=== PATIENT | male | born 1965 | race Caucasian/White ===

== ENCOUNTER 2020-09-30 15:52 | Observation (INO) | payer SELFPAY ==
[2020-09-30] VITALS (8 sets, daily range): BP systolic 143–177; BP diastolic 77–113; PULSE 93–122; RESP 15–20; TEMP 36.8; O2SAT 97–100; BMI 21.4
--- NOTE | 2020-09-30 16:48 | XRR_ITS ---
PROCEDURE INFORMATION: Exam: XR Complete Acute Abdomen Series Exam date and time: 09/30/2020 4:59 PM Age: 55 years old Clinical indication: Abdominal tenderness; Patient HX: PT confused, abd tender, GROVE; Additional info: Abd pain TECHNIQUE: Imaging protocol: XR complete acute abdomen series, including 2 or more views of the abdomen and a single view chest. COMPARISON: No relevant prior studies available. FINDINGS: Lungs: Right basilar atelectasis versus mild scarring is noted. The lungs are otherwise clear. Pleural spaces: A small right pleural effusion is present. No pneumothorax. Heart/Mediastinum: Normal. No cardiomegaly. Gastrointestinal tract: No intestinal obstruction. Intraperitoneal space: Normal. No free air. Bones/joints: Normal. No acute fracture. Soft tissues: Normal. XR/XR acute abdomen series [id number] IMPRESSION: 1. Right basilar atelectasis versus mild scarring and small right pleural effusion. 2. No intestinal obstruction.
--- NOTE | 2020-09-30 16:48 | ECG_ITS ---
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 Measurements Intervals [place] Rate: 107 P: 37 RI: 147 QRS: 26 QRSD: 88 T: 33 QT: 349 QTc: 467 Interpretive Statements SINUS TACHYCARDIA POSSIBLE LEFT ATRIAL ENLARGEMENT [-0.1mV P WAVE IN V1/V2] ST DEVIATION AND MODERATE T-WAVE ABNORMALITY, CONSIDER ANTERIOR ISCHEMIA [-0.1+ mV T WAVE IN V3/V4] No previous ECG available for comparison Electronically Signed On 09-30-2020 18:35:49 CDT by Lety Gimenez M.D. [id number]
--- NOTE | 2020-09-30 16:51 | ED_ITS ---
Documented by User: Evan Jason MD 09/30/20 17:46 HPI - Altered Mental Status General: Chief Complaint: Altered Mental Status Stated Complaint: confusion Time Seen by Provider: 09/30/20 16:39 Source: patient, family, RN notes reviewed and old records reviewed Limitations: no limitations History of Present Illness: HPI narrative: This patient is a 55-year-old male who presents to the emergency department concerns for acute alcoholism and depression and self-medicating with alcohol. Patient states he drinks probably less than a fourth of Captjustin Ibarra's daily and has for many years. Patient is drinking is increased since 6 months ago when his mother the patient is left to care for an elderly cousin who has mental retardation. Patient is currently trying to care and get him become the power of collections attorney of the cousin but it stuck in court. Patient is not eating much and drinking constantly to help medicate for depression. Patient does not appear to be tremulous does not appear to be having acute DTs he has reported that he has had issues with some nausea and vomiting. Although he has not vomited in the emergency department. Patient's vital signs blood pressure 155/87 slightly tachycardic at 122 respirations 18 temperature 98.3 O2 sat 99 on room air. Patient 30 days ago was in [place] at [facility] and started having some chest pain and felt lightheaded and was admitted to [facility] at that time for concerns of electrolyte abnormalities and concerning medical heart condition. Will do medical evaluation treat as needed Onset (ago): year(s) Severity: similar to previous episodes Associated symptoms: Reports depression Review of Systems General: Reports: 10 or more systems reviewed and unremarkable except in HPI and below Const: Denies: fever(s), chills, body aches or fatigue Eyes: Denies: change in vision or blurry vision ENMT: Denies: throat pain, hoarseness or mouth pain Card: Denies: chest pain, palpitations, irregular heart rhythm, edema, swelling of feet/ankles or lightheadedness Resp: Denies: dyspnea, productive cough, non-productive cough, wheezing or pain on inspiration GI: Reports: nausea and vomiting; Denies: abdominal pain : Denies: flank pain, dysuria, urinary frequency, urinary urgency or urinary hesitancy Musc: Denies: neck pain, back pain, extremity pain, extremity swelling, joint pain, joint swelling, joint redness, joint warmth or limited range of motion Skin/Breast: Denies: rash, pruritus, erythema or skin tenderness Neuro: Denies: headache(s), numbness in extremities or weakness in extremities Psych: Reports: depression and change in appetite; Denies: anxiety PFSH ED PFSH: Medical History No pertinent past medical history Surgical History No pertinent past surgical history Family History Other CAD (coronary artery disease) Social History Smoking and tobacco status: current every day smoker cigarettes [ Other cigarette details: 1 pack/day for 30 years ] Alcohol intake: current Alcohol use comment: Drinks spiced rum 1.5 pint every night Substance/Drug Use: never Household members: family Housing: House Physical Exam Const: COMMON NORMALS: no acute distress, average body habitus, patient oriented x3, no limitations, healthy appearing, alert and well nourished HENMT: COMMON NORMALS: normocephalic, atraumatic, hearing grossly normal bilaterally, external ears normal, EAC's normal, TM's normal bilaterally, Normal external nose present, Normal nasal mucous membranes and turbinates present, moist oral mucous membranes, oropharynx normal, dentition normal and gingiva normal HEAD & SCALP: normocephalic and atraumatic NOSE: Normal external nose present and Normal nasal mucous membranes and turbinates present EXTERNAL EAR: Yes external ears normal EXTERNAL AUDITORY CANAL: EAC's normal TYMPANIC MEMBRANE: TM's normal bilaterally Neck/C-Spine: COMMON NORMALS: full ROM, no lymphadenopathy, supple, no meningeal signs, no JVD, Thyroid normal and No carotid bruits THYROID: T hyroid normal Chest: COMMONS NORMALS: normal inspection of the chest, normal palpation of entire chest wall, normal inspection of the breasts and normal palpation of the breasts Resp: COMMON NORMALS: normal respiratory effort, No retractions, No use of accessory muscles, clear to auscultation bilaterally and percussion normal AUSCULTATION: clear to auscultation bilaterally PERCUSSION: percussion normal Cardio: COMMON NORMALS: no JVD, regular rate, regular rhythm, S1 normal heart sound present, S2 normal heart sound present, No gallops present (Cardio), No clicks present (Cardio), No murmurs present (Cardio), No rub (Cardio) and Peripheral pulses 2+ throughout RATE: regular rate RHYTHM: regular rhythm HEART SOUNDS: S1 normal heart sound present and S2 normal heart sound present PERIPHERAL PULSES: Peripheral pulses 2+ throughout GI: COMMON NORMALS: Normal to inspection, nondistended, normoactive bowel sounds present, Soft to palpation, non-tender, No hepatosplenomegaly present, no masses and no bruits PALPATION: Yes Soft to palpation and Yes No hepatosplenomegaly present : COMMON NORMALS: Yes no CVA tenderness BLADDER/KIDNEY EXAM: Yes no CVA tenderness Back/Pelvis: COMMON NORMALS: no CVA tenderness, thoracic and lumbar spine normal to inspection, no thoracic nor lumbar tenderness, thoraco-lumbar ROM normal and straight leg raise negative bilaterally Extremity: COMMON NORMALS: normal to inspection, full ROM, capillary refill normal, no joint enlargement, no clubbing, cyanosis or edema, no calf tenderness and no pedal edema Neuro: COMMON NORMALS: patient oriented x3 SENSORIUM/ORIENTATION: Yes alert MENINGEAL SIGNS: Yes no meningeal signs Course Consultations: Consultation #1: Care transferred to Dr. Thorpe for shift change Time: 17:45 Vital Signs: Vital signs: Vital Signs Temperature 98.3 F 09/30/20 15:54 Pulse Rate 121 H 09/30/20 20:27 Respiratory Rate 20 H 09/30/20 20:27 Blood Pressure 165/113 09/30/20 20:27 Pulse Oximetry 99 09/30/20 20:27 MDM - Altered Mental Status MDM Narrative: Medical decision making narrative: This patient is a 55-year-old male who presents to the emergency department concerns for acute alcoholism and depression and self-medicating with alcohol. Patient states he drinks probably less than a fourth of [employer] I[employer]ra's daily and has for many years. Patient is drinking is increased since 6 months ago when his mother the patient is left to care for an elderly cousin who has mental retardation. Patient is currently trying to care and get him become the power of collections attorney of the cousin but it stuck in court. Patient is not eating much and drinking constantly to help medicate for depression. Patient does not appear to be tremulous does not appear to be having acute DTs he has reported that he has had issues with some nausea and vomiting. Although he has not vomited in the emergency department. Patient's vital signs blood pressure 155/87 slightly tachycardic at 122 respirations 18 temperature 98.3 O2 sat 99 on room air. Patient 30 days ago was in [place] at [facility] and started having some chest pain and felt lightheaded and was admitted to [facility] at that time for concerns of electrolyte abnormalities and concerning medical heart condition. Differential Diagnosis: Differential diagnosis altered mental status: Likely alcoholic intoxication, altered mental status, delirium, dementia, hypoglycemia, hyponatremia, subarachnoid hemorrhage and sepsis Medical Records: Attestation: I reviewed the patient's medical records. Lab Data: Attestation: I reviewed the patient's lab results. Labs: Lab Results 09/30/20 09/30/20 09/30/20 Range/Units 17:20 17:20 17:20 WBC 10.1 H (4.0-10.0) 10^3/ uL RBC 3.19 L (4.1-5.3) 10^6/u L Hgb 11.3 L (11.7-16.6) g/dL Hct 33.4 L (42.0-52.0) % MCV 104.7 H (80-94) fL MCH 35.4 H (28.0-34.0) pg MCHC 33.8 (30.0-36.0) g/dL RDW 13.1 (12.1-15.1) % Plt Count 108 L (130-400) 10^3/c mm MPV 11.4 H (7.4-10.4) fL Neut % (Auto) 75.8 % Lymph % (Auto) 12.5 % [place] % (Auto) 9.6 % Eos % (Auto) 1.1 % Baso % (Auto) 0.4 % Neut # (Auto) 7.67 (1.8-7.7) 10^3/u L Lymph # (Auto) 1.3 (0.8-4.8) 10^3/u L [place] # (Auto) 1.0 H (0.2-0.9) 10^3/u L Eos # (Auto) 0.1 (0.0-0.8) 10^3/u L Baso # (Auto) 0.0 (0.0-0.1) 10^3/u L Nucleated RBC % (a uto) 0 % Nucleated RBCs # 0.0 /100WBC PT 12.60 (12.1-14.9) SECO NDS INR 0.92 (0.8-1.2) APTT 29.0 (23.9-36.7) SECO NDS Sodium 135 L (136-145) mmol/L Potassium 2.9 L (3.5-5.1) mmol/L Chloride 87 L (98-107) mmol/L Carbon Dioxide 18 L (22-29) mmol/L Anion Gap 32.9 H (5-19) BUN 24 H (6-20) mg/dL Creatinine 1.3 H (0.7-1.2) mg/dL GFR Calculation 57.7 L (90-130) mL/min Glucose 114 (65-115) mg/dL Calculated Osmolal ity 285 (285-295) mOsm/k g Calcium 9.3 (8.5-10.5) mg/dL Magnesium (1.7-2.3) mg/dL Total Bilirubin 1.2 (0.15-1.2) mg/dL AST 89 H (0-40) U/L ALT 42 H (0-41) U/L Alkaline Phosphata se 109 (40-130) IU/L Troponin T Baselin e (0-15) ng/L Total Protein 8.3 (6.6-8.7) g/dL Albumin 4.7 (3.5-5.2) g/dL Globulin 3.6 (1.3-4.6) g/dL Lipase 275 H (13-60) U/L Vitamin B12 420 (232-1245) pg/mL Folate (4.5-32.2) ng/mL Urine Color (Yellow) Urine Appearance (CLEAR) Urine pH (5-7) Ur Specific Gravit y (1.005-1.030) Urine Protein (Negative) Urine Glucose (UA) (Normal) Urine Ketones (Negative) Urine Blood (Negative) Urine Nitrate (Negative) Urine Bilirubin (Negative) Urine Urobilinogen (Negative) mg/dL Ur Leukocyte Kalyani ase (Negative) Urine RBC (0-2) /hpf Urine WBC (0-5) /hpf Ur Squamous Epith Cells (0-5) /hpf Amorphous Sediment Urine Bacteria (NONE) /hpf Fine Granular Cast s /lpf Salicylates < 0.3 L (3-10) mg/dL Urine Opiates Scre en (Negative) ng/mL Ur Barbiturates Sc reen (Negative) ng/mL Ur Phencyclidine S crn (Negative) ng/mL Ur Amphetamines Sc reen (Negative) ng/mL U Benzodiazepines Scrn (Negative) ng/mL Urine Cocaine Scre en (Negative) ng/mL U Marijuana (THC) Screen (Negative) ng/mL Ethyl Alcohol < 10 (0-10) mg/dL Serum Ketones (Negative) 09/30/20 09/30/20 09/30/20 Range/Units 17:20 17:20 17:20 WBC (4.0-10.0) 10^3/ uL RBC (4.1-5.3) 10^6/u L Hgb (11.7-16.6) g/dL Hct (42.0-52.0) % MCV (80-94) fL MCH (28.0-34.0) pg MCHC (30.0-36.0) g/dL RDW (12.1-15.1) % Plt Count (130-400) 10^3/c mm MPV (7.4-10.4) fL Neut % (Auto) % Lymph % (Auto) % [place] % (Auto) % Eos % (Auto) % Baso % (Auto) % Neut # (Auto) (1.8-7.7) 10^3/u L Lymph # (Auto) (0.8-4.8) 10^3/u L [place] # (Auto) (0.2-0.9) 10^3/u L Eos # (Auto) (0.0-0.8) 10^3/u L Baso # (Auto) (0.0-0.1) 10^3/u L Nucleated RBC % (a uto) % Nucleated RBCs # /100WBC PT (12.1-14.9) SECO NDS INR (0.8-1.2) APTT (23.9-36.7) SECO NDS Sodium (136-145) mmol/L Potassium (3.5-5.1) mmol/L Chloride (98-107) mmol/L Carbon Dioxide (22-29) mmol/L Anion Gap (5-19) BUN (6-20) mg/dL Creatinine (0.7-1.2) mg/dL GFR Calculation (90-130) mL/min Glucose (65-115) mg/dL Calculated Osmolal ity (285-295) mOsm/k g Calcium (8.5-10.5) mg/dL Magnesium (1.7-2.3) mg/dL Total Bilirubin (0.15-1.2) mg/dL AST (0-40) U/L ALT (0-41) U/L Alkaline Phosphata se (40-130) IU/L Troponin T Baselin e 29 H (0-15) ng/L Total Protein (6.6-8.7) g/dL Albumin (3.5-5.2) g/dL Globulin (1.3-4.6) g/dL Lipase (13-60) U/L Vitamin B12 (232-1245) pg/mL Folate 4.4 L (4.5-32.2) ng/mL Urine Color (Yellow) Urine Appearance (CLEAR) Urine pH (5-7) Ur Specific Gravit y (1.005-1.030) Urine Protein (Negative) Urine Glucose (UA) (Normal) Urine Ketones (Negative) Urine Blood (Negative) Urine Nitrate (Negative) Urine Bilirubin (Negative) Urine Urobilinogen (Negative) mg/dL Ur Leukocyte Kalyani ase (Negative) Urine RBC (0-2) /hpf Urine WBC (0-5) /hpf Ur Squamous Epith Cells (0-5) /hpf Amorphous Sediment Urine Bacteria (NONE) /hpf Fine Granular Cast s /lpf Salicylates (3-10) mg/dL Urine Opiates Scre en (Negative) ng/mL Ur Barbiturates Sc reen (Negative) ng/mL Ur Phencyclidine S crn (Negative) ng/mL Ur Amphetamines Sc reen (Negative) ng/mL U Benzodiazepines Scrn (Negative) ng/mL Urine Cocaine Scre en (Negative) ng/mL U Marijuana (THC) Screen (Negative) ng/mL Ethyl Alcohol (0-10) mg/dL Serum Ketones Positive H (Negative) 09/30/20 09/30/20 09/30/20 Range/Units 17:20 18:43 18:43 WBC (4.0-10.0) 10^3/ uL RBC (4.1-5.3) 10^6/u L Hgb (11.7-16.6) g/dL Hct (42.0-52.0) % MCV (80-94) fL MCH (28.0-34.0) pg MCHC (30.0-36.0) g/dL RDW (12.1-15.1) % Plt Count (130-400) 10^3/c mm MPV (7.4-10.4) fL Neut % (Auto) % Lymph % (Auto) % [place] % (Auto) % Eos % (Auto) % Baso % (Auto) % Neut # (Auto) (1.8-7.7) 10^3/u L Lymph # (Auto) (0.8-4.8) 10^3/u L [place] # (Auto) (0.2-0.9) 10^3/u L Eos # (Auto) (0.0-0.8) 10^3/u L Baso # (Auto) (0.0-0.1) 10^3/u L Nucleated RBC % (a uto) % Nucleated RBCs # /100WBC PT (12.1-14.9) SECO NDS INR (0.8-1.2) APTT (23.9-36.7) SECO NDS Sodium (136-145) mmol/L Potassium (3.5-5.1) mmol/L Chloride (98-107) mmol/L Carbon Dioxide (22-29) mmol/L Anion Gap (5-19) BUN (6-20) mg/dL Creatinine (0.7-1.2) mg/dL GFR Calculation (90-130) mL/min Glucose (65-115) mg/dL Calculated Osmolal ity (285-295) mOsm/k g Calcium (8.5-10.5) mg/dL Magnesium 1.9 (1.7-2.3) mg/dL Total Bilirubin (0.15-1.2) mg/dL AST (0-40) U/L ALT (0-41) U/L Alkaline Phosphata se (40-130) IU/L Troponin T Baselin e (0-15) ng/L Total Protein (6.6-8.7) g/dL Albumin (3.5-5.2) g/dL Globulin (1.3-4.6) g/dL Lipase (13-60) U/L Vitamin B12 (232-1245) pg/mL Folate (4.5-32.2) ng/mL Urine Color Yellow (Yellow) Urine Appearance Clear (CLEAR) Urine pH 6.5 (5-7) Ur Specific Gravit y 1.010 (1.005-1.030) Urine Protein 1+ H (Negative) Urine Glucose (UA) Norm (Normal) Urine Ketones 2+ H (Negative) Urine Blood 2+ H (Negative) Urine Nitrate Negative (Negative) Urine Bilirubin 1+ H (Negative) Urine Urobilinogen 1 H (Negative) mg/dL Ur Leukocyte Kalyani ase Negative (Negative) Urine RBC 0-4 H (0-2) /hpf Urine WBC None (0-5) /hpf Ur Squamous Epith Cells 0-4 H (0-5) /hpf Amorphous Sediment Not Reportable Urine Bacteria Trace (NONE) /hpf Fine Granular Cast s 0-4 H /lpf Salicylates (3-10) mg/dL Urine Opiates Scre en Negative (Negative) ng/mL Ur Barbiturates Sc reen Negative (Negative) ng/mL Ur Phencyclidine S crn Negative (Negative) ng/mL Ur Amphetamines Sc reen Negative (Negative) ng/mL U Benzodiazepines Scrn Negative (Negative) ng/mL Urine Cocaine Scre en Negative (Negative) ng/mL U Marijuana (THC) Screen Negative (Negative) ng/mL Ethyl Alcohol (0-10) mg/dL Serum Ketones (Negative) EKG Data^: EKG 1: Attestation: I personally reviewed and interpreted this EKG as follows: EKG interpretation date: 09/30/20 EKG interpretation time: 01:07 Prior EKG tracings: not available for review Interpretation: This patient is a sinus tachycardic patient heart rate 107 possible left atrial enlargement nonspecific ST changes. Stated that he was admitted to the hospital 1 month ago for similar EKG at [facility] and spent 3 days. Appear to be more of an electrolyte imbalance versus intact cardiac issue . Will do medical evaluation treat as needed Discharge Plan Discharge Admit Provider: Gissel Prasad Clinical Impression: Alcoholism, chronic, Depression Condition: Stable Coding Level of Care Code ED Longitudinal Float Operator for Chg Fwd Exam Comprehensive Documented by User: Aidan Thorpe MD 09/30/20 22:56 HPI - Altered Mental Status General: Chief Complaint: Altered Mental Status Stated Complaint: confusion Time Seen by Provider: 09/30/20 16:39 [facility] ED PFSH: Medical History No pertinent past medical history Surgical History No pertinent past surgical history Family History Other CAD (coronary artery disease) Social History Smoking and tobacco status: current every day smoker cigarettes [ Other cigarette details: 1 pack/day for 30 years ] Alcohol intake: current Alcohol use comment: Drinks spiced rum 1.5 pint every night Substance/Drug Use: never Household members: family Housing: House Course ED course: Upon reexamination, patient appears to be tachycardic, altered, with headache. He is hypokalemic receiving repletion. He is ketotic and cachectic and would benefit from fluid resuscitation. He was started on D5 half normal saline and given IV potassium and will be admitted to the hospitalist service until such time that he is able to meet his metabolic needs by mouth. Patient agrees to the plan. Vital Signs: Vital signs: Vital Signs Temperature 98.3 F 09/30/20 15:54 Pulse Rate 121 H 09/30/20 20:27 Respiratory Rate 20 H 09/30/20 20:27 Blood Pressure 165/113 09/30/20 20:27 Pulse Oximetry 99 09/30/20 20:27 MDM - Altered Mental Status Lab Data: Labs: Lab Results 09/30/20 09/30/20 09/30/20 Range/Units 17:20 17:20 17:20 WBC 10.1 H (4.0-10.0) 10^3/ uL RBC 3.19 L (4.1-5.3) 10^6/u L Hgb 11.3 L (11.7-16.6) g/dL Hct 33.4 L (42.0-52.0) % MCV 104.7 H (80-94) fL MCH 35.4 H (28.0-34.0) pg MCHC 33.8 (30.0-36.0) g/dL RDW 13.1 (12.1-15.1) % Plt Count 108 L (130-400) 10^3/c mm MPV 11.4 H (7.4-10.4) fL Neut % (Auto) 75.8 % Lymph % (Auto) 12.5 % [place] % (Auto) 9.6 % Eos % (Auto) 1.1 % Baso % (Auto) 0.4 % Neut # (Auto) 7.67 (1.8-7.7) 10^3/u L Lymph # (Auto) 1.3 (0.8-4.8) 10^3/u L [place] # (Auto) 1.0 H (0.2-0.9) 10^3/u L Eos # (Auto) 0.1 (0.0-0.8) 10^3/u L Baso # (Auto) 0.0 (0.0-0.1) 10^3/u L Nucleated RBC % (a uto) 0 % Nucleated RBCs # 0.0 /100WBC PT 12.60 (12.1-14.9) SECO NDS INR 0.92 (0.8-1.2) APTT 29.0 (23.9-36.7) SECO NDS Sodium 135 L (136-145) mmol/L Potassium 2.9 L (3.5-5.1) mmol/L Chloride 87 L (98-107) mmol/L Carbon Dioxide 18 L (22-29) mmol/L Anion Gap 32.9 H (5-19) BUN 24 H (6-20) mg/dL Creatinine 1.3 H (0.7-1.2) mg/dL GFR Calculation 57.7 L (90-130) mL/min Glucose 114 (65-115) mg/dL Calculated Osmolal ity 285 (285-295) mOsm/k g Calcium 9.3 (8.5-10.5) mg/dL Magnesium (1.7-2.3) mg/dL Total Bilirubin 1.2 (0.15-1.2) mg/dL AST 89 H (0-40) U/L ALT 42 H (0-41) U/L Alkaline Phosphata se 109 (40-130) IU/L Troponin T Baselin e (0-15) ng/L Total Protein 8.3 (6.6-8.7) g/dL Albumin 4.7 (3.5-5.2) g/dL Globulin 3.6 (1.3-4.6) g/dL Lipase 275 H (13-60) U/L Vitamin B12 420 (232-1245) pg/mL Folate (4.5-32.2) ng/mL Urine Color (Yellow) Urine Appearance (CLEAR) Urine pH (5-7) Ur Specific Gravit y (1.005-1.030) Urine Protein (Negative) Urine Glucose (UA) (Normal) Urine Ketones (Negative) Urine Blood (Negative) Urine Nitrate (Negative) Urine Bilirubin (Negative) Urine Urobilinogen (Negative) mg/dL Ur Leukocyte Kalyani ase (Negative) Urine RBC (0-2) /hpf Urine WBC (0-5) /hpf Ur Squamous Epith Cells (0-5) /hpf Amorphous Sediment Urine Bacteria (NONE) /hpf Fine Granular Cast s /lpf Salicylates < 0.3 L (3-10) mg/dL Urine Opiates Scre en (Negative) ng/mL Ur Barbiturates Sc reen (Negative) ng/mL Ur Phencyclidine S crn (Negative) ng/mL Ur Amphetamines Sc reen (Negative) ng/mL U Benzodiazepines Scrn (Negative) ng/mL Urine Cocaine Scre en (Negative) ng/mL U Marijuana (THC) Screen (Negative) ng/mL Ethyl Alcohol < 10 (0-10) mg/dL Serum Ketones (Negative) 09/30/20 09/30/20 09/30/20 Range/Units 17:20 17:20 17:20 WBC (4.0-10.0) 10^3/ uL RBC (4.1-5.3) 10^6/u L Hgb (11.7-16.6) g/dL Hct (42.0-52.0) % MCV (80-94) fL MCH (28.0-34.0) pg MCHC (30.0-36.0) g/dL RDW (12.1-15.1) % Plt Count (130-400) 10^3/c mm MPV (7.4-10.4) fL Neut % (Auto) % Lymph % (Auto) % [place] % (Auto) % Eos % (Auto) % Baso % (Auto) % Neut # (Auto) (1.8-7.7) 10^3/u L Lymph # (Auto) (0.8-4.8) 10^3/u L [place] # (Auto) (0.2-0.9) 10^3/u L Eos # (Auto) (0.0-0.8) 10^3/u L Baso # (Auto) (0.0-0.1) 10^3/u L Nucleated RBC % (a uto) % Nucleated RBCs # /100WBC PT (12.1-14.9) SECO NDS INR (0.8-1.2) APTT (23.9-36.7) SECO NDS Sodium (136-145) mmol/L Potassium (3.5-5.1) mmol/L Chloride (98-107) mmol/L Carbon Dioxide (22-29) mmol/L Anion Gap (5-19) BUN (6-20) mg/dL Creatinine (0.7-1.2) mg/dL GFR Calculation (90-130) mL/min Glucose (65-115) mg/dL Calculated Osmolal ity (285-295) mOsm/k g Calcium (8.5-10.5) mg/dL Magnesium (1.7-2.3) mg/dL Total Bilirubin (0.15-1.2) mg/dL AST (0-40) U/L ALT (0-41) U/L Alkaline Phosphata se (40-130) IU/L Troponin T Baselin e 29 H (0-15) ng/L Total Protein (6.6-8.7) g/dL Albumin (3.5-5.2) g/dL Globulin (1.3-4.6) g/dL Lipase (13-60) U/L Vitamin B12 (232-1245) pg/mL Folate 4.4 L (4.5-32.2) ng/mL Urine Color (Yellow) Urine Appearance (CLEAR) Urine pH (5-7) Ur Specific Gravit y (1.005-1.030) Urine Protein (Negative) Urine Glucose (UA) (Normal) Urine Ketones (Negative) Urine Blood (Negative) Urine Nitrate (Negative) Urine Bilirubin (Negative) Urine Urobilinogen (Negative) mg/dL Ur Leukocyte Kalyani ase (Negative) Urine RBC (0-2) /hpf Urine WBC (0-5) /hpf Ur Squamous Epith Cells (0-5) /hpf Amorphous Sediment Urine Bacteria (NONE) /hpf Fine Granular Cast s /lpf Salicylates (3-10) mg/dL Urine Opiates Scre en (Negative) ng/mL Ur Barbiturates Sc reen (Negative) ng/mL Ur Phencyclidine S crn (Negative) ng/mL Ur Amphetamines Sc reen (Negative) ng/mL U Benzodiazepines Scrn (Negative) ng/mL Urine Cocaine Scre en (Negative) ng/mL U Marijuana (THC) Screen (Negative) ng/mL Ethyl Alcohol (0-10) mg/dL Serum Ketones Positive H (Negative) 09/30/20 09/30/20 09/30/20 Range/Units 17:20 18:43 18:43 WBC (4.0-10.0) 10^3/ uL RBC (4.1-5.3) 10^6/u L Hgb (11.7-16.6) g/dL Hct (42.0-52.0) % MCV (80-94) fL MCH (28.0-34.0) pg MCHC (30.0-36.0) g/dL RDW (12.1-15.1) % Plt Count (130-400) 10^3/c mm MPV (7.4-10.4) fL Neut % (Auto) % Lymph % (Auto) % [place] % (Auto) % Eos % (Auto) % Baso % (Auto) % Neut # (Auto) (1.8-7.7) 10^3/u L Lymph # (Auto) (0.8-4.8) 10^3/u L [place] # (Auto) (0.2-0.9) 10^3/u L Eos # (Auto) (0.0-0.8) 10^3/u L Baso # (Auto) (0.0-0.1) 10^3/u L Nucleated RBC % (a uto) % Nucleated RBCs # /100WBC PT (12.1-14.9) SECO NDS INR (0.8-1.2) APTT (23.9-36.7) SECO NDS Sodium (136-145) mmol/L Potassium (3.5-5.1) mmol/L Chloride (98-107) mmol/L Carbon Dioxide (22-29) mmol/L Anion Gap (5-19) BUN (6-20) mg/dL Creatinine (0.7-1.2) mg/dL GFR Calculation (90-130) mL/min Glucose (65-115) mg/dL Calculated Osmolal ity (285-295) mOsm/k g Calcium (8.5-10.5) mg/dL Magnesium 1.9 (1.7-2.3) mg/dL Total Bilirubin (0.15-1.2) mg/dL AST (0-40) U/L ALT (0-41) U/L Alkaline Phosphata se (40-130) IU/L Troponin T Baselin e (0-15) ng/L Total Protein (6.6-8.7) g/dL Albumin (3.5-5.2) g/dL Globulin (1.3-4.6) g/dL Lipase (13-60) U/L Vitamin B12 (232-1245) pg/mL Folate (4.5-32.2) ng/mL Urine Color Yellow (Yellow) Urine Appearance Clear (CLEAR) Urine pH 6.5 (5-7) Ur Specific Gravit y 1.010 (1.005-1.030) Urine Protein 1+ H (Negative) Urine Glucose (UA) Norm (Normal) Urine Ketones 2+ H (Negative) Urine Blood 2+ H (Negative) Urine Nitrate Negative (Negative) Urine Bilirubin 1+ H (Negative) Urine Urobilinogen 1 H (Negative) mg/dL Ur Leukocyte [place] ase Negative (Negative) Urine RBC 0-4 H (0-2) /hpf Urine WBC None (0-5) /hpf Ur Squamous Epith Cells 0-4 H (0-5) /hpf Amorphous Sediment Not Reportable Urine Bacteria Trace (NONE) /hpf Fine Granular Cast s 0-4 H /lpf Salicylates (3-10) mg/dL Urine Opiates Scre en Negative (Negative) ng/mL Ur Barbiturates Sc reen Negative (Negative) ng/mL Ur Phencyclidine S crn Negative (Negative) ng/mL Ur Amphetamines Sc reen Negative (Negative) ng/mL U Benzodiazepines Scrn Negative (Negative) ng/mL Urine Cocaine Scre en Negative (Negative) ng/mL U Marijuana (THC) Screen Negative (Negative) ng/mL Ethyl Alcohol (0-10) mg/dL Serum Ketones (Negative) Discharge Plan Discharge Admit Provider: Gissel Prasad Clinical Impression: Alcoholism, chronic, Depression Condition: Stable Coding Level of Care Code ED Longitudinal Float Operator for g Fwd Exam Comprehensive
[2020-09-30] MEDS: sodium chloride 0.9% 1,000 ML 999 ML IV (17:22)
[2020-09-30] MEDS: ondansetron 2 mg/ML SDV 2 mL 4 MG IVP (17:23)
[2020-09-30] MEDS: multivitamin therapeutic Tablet 1 TAB PO (17:23)
[2020-09-30 17:34] LABS: Basophils % 0.4 %; Eosinophils # 0.1 10^3/uL (0.0-0.8); Eosinophils % 1.1 %; Hematocrit 33.4 % (42.0-52.0); Hemoglobin 11.3 g/dL (11.7-16.6); Lymphocytes # 1.3 10^3/uL (0.8-4.8); Lymphocytes % 12.5 %; Mean Corpuscular HGB Conc 33.8 g/dL (30.0-36.0); Mean Corpuscular Hemoglobin 35.4 pg (28.0-34.0); Mean Corpuscular Volume 104.7 fL (80-94); Mean Platelet Volume 11.4 fL (7.4-10.4); Monocytes % 9.6 %; Neutrophils # 7.67 10^3/uL (1.8-7.7); Neutrophils % 75.8 %; Nucleated Red Blood Cells % 0 %; Platelet Count 108 10^3/cmm (130-400); Red Blood Count 3.19 10^6/uL (4.1-5.3); Red Cell Distribution Width 13.1 % (12.1-15.1); White Blood Count 10.1 10^3/uL (4.0-10.0)
[2020-09-30 18:01] LABS: INR 0.92 (0.8-1.2)
[2020-09-30 18:30] LABS: Troponin(5th) Baseline 29 ng/L (0-15)
[2020-09-30 18:33] LABS: Alanine Aminotransferase 42 U/L (0-41); Albumin Level 4.7 g/dL (3.5-5.2); Alkaline Phosphatase 109 IU/L (40-130); Anion Gap 32.9 (5-19); Aspartate Amino Transferase 89 U/L (0-40); Blood Urea Nitrogen 24 mg/dL (6-20); Calcium 9.3 mg/dL (8.5-10.5); Carbon Dioxide 18 mmol/L (22-29); Chloride 87 mmol/L (98-107); Globulin 3.6 g/dL (1.3-4.6); Glomerular Filtration Rate 57.7 mL/min (90-130); Glucose 114 mg/dL (65-115); Lipase 275 U/L (13-60); Osmolality Calculated 285 mOsm/kg (285-295); Sodium 135 mmol/L (136-145); Total Bilirubin 1.2 mg/dL (0.15-1.2); Total Protein 8.3 g/dL (6.6-8.7)
[2020-09-30 18:38] LABS: Alcohol Level < 10 mg/dL (0-10); Salicylate < 0.3 mg/dL (3-10)
[2020-09-30 18:39] LABS: Potassium 2.9 mmol/L (3.5-5.1)
[2020-09-30 18:46] LABS: Vitamin B12 420 pg/mL (232-1245)
[2020-09-30 18:47] LABS: Folate Level 4.4 ng/mL (4.5-32.2)
[2020-09-30 19:00] LABS: Urine Appearance Clear (CLEAR); Urine Color Yellow (Yellow); pH Urine 6.5 (5-7)
[2020-09-30 19:01] LABS: Add Urine Microscopic? YES; Bilirubin Urine 1+ (Negative); Blood Urine 2+ (Negative); Glucose Urine UA Norm (Normal); Ketones Urine 2+ (Negative); Leukocyte Esterase Urine Negative (Negative); Nitrate Urine Negative (Negative); Protein Urine 1+ (Negative); Urobilinogen Urine 1 mg/dL (Negative)
[2020-09-30 19:03] LABS: Bacteria Urine TRACE /hpf; RBC Urine 0-4 /hpf (0-2); Squamous Epithelial Cell Urine 0-4 /hpf (0-5)
[2020-09-30 19:05] LABS: Add Urine Culture? No; Amphetamines Screen Urine Negative (Negative); Barbiturates Screen Urine Negative (Negative); Benzodiazepines Screen Urine Negative (Negative); Cocaine Screen Urine Negative (Negative); Fine Granular Casts Urine 0-4 /lpf; Opiate Screen Urine Negative (Negative); PCP Screen Urine Negative (Negative); THC Screen Urine Negative (Negative)
[2020-09-30] MEDS: potassium chloride ER 20 mEq Tablet 40 MEQ PO (19:18)
--- NOTE | 2020-09-30 19:45 | PM.HP ---
Providers/Chief Complaint Primary Care Provider: Demetrius Denise DO Chief Complaint: confusion History of Present Illness Lewis Mendez is a 55 year old male who does not have significant past medical history presented today for chief complaint of presyncope. Patient is stating that he drinks 1.5 pints of spice rum every night his last alcoholic drink was on Tuesday, he never experienced any withdrawal symptoms, he has been noticing palpitations, dizziness which she is describing as wobbly gait, has had fallen 2-3 times in last few days, he has been experiencing nausea and vomiting for last 48 hours, also noticed fever 101, productive cough brings up clear sputum, smokes 1 pack/day, no recent change in bowel movement. His main concern that prompted him to come to the hospital was unbalanced gait. His last proper meal was 48 hours ago. Diagnostics in the ER revealed dehydration, sinus tachycardia, starvation ketosis, thrombocytopenia, BRIANA, hyponatremia, hypokalemia highly nongap acidosis secondary to starvation ketosis, I will request lactic acid, low folate level CT head showed bilateral parietal lobe hypodensities consideration given for subacute infarction, chest abdominal x-ray revealed atelectasis Review of Systems Const: Reports: fever(s), chills, body aches, change in appetite, change in weight and fatigue Eyes: Denies: change in vision ENMT: Denies: throat pain Card: Reports: palpitations Resp: Denies: dyspnea GI: Reports: nausea and vomiting; Denies: abdominal pain : Denies: flank pain Musc: Reports: muscle cramps Skin/Breast: Denies: rash Neuro: Reports: difficulty walking, frequent falls and dizziness; Denies: headache(s) Psych: Reports: anxiety Endo: Denies: polyuria Giacomo/Lymph: Denies: easy bruising All/Imm: Denies: urticaria Medications/Allergies Home Medications Medication Instructions Recorded Confirmed Last Taken Type allopurinol 100 mg PO DAILY PRN 09/30/20 09/30/20 09/26/20 History Allergies Allergy/AdvReac Type Severity Reaction Status Date / Time Penicillins Allergy ALGY-Rash Verified 09/30/20 16:25 PFSH Acute PFSH: Medical History No pertinent past medical history Surgical History No pertinent past surgical history Family History Other CAD (coronary artery disease) Social History Smoking and tobacco status: current every day smoker cigarettes [ Other cigarette details: 1 pack/day for 30 years ] Alcohol intake: current Alcohol use comment: Drinks spiced rum 1.5 pint every night Substance/Drug Use: never Household members: family Housing: House Vitals/I&O/Wt Last Vital Signs Temp 98.3 F 09/30/20 15:54 Pulse 109 H 09/30/20 19:00 Resp 20 H 09/30/20 19:00 BP 172/110 09/30/20 19:00 Pulse Ox 100 09/30/20 19:00 09/30/20 09/30/20 09/30/20 06:59 14:59 22:59 Intake Total 1000 / 1000 Balance 1000 / 1000 Weight last 48 hrs Weight 63.957 kg Physical Exam Narrative: EXAM NARRATIVE: male who appears more than stated age Clinically looks dehydrated and emaciated Sarcopenia S1, S2 sinus tachycardia no evidence of heart failure no murmur appreciated Abdomen soft nontender bowel sound present Lower extremity no edema gangrene or ulcer Positive Romberg sign EOMI, PERRLA no neurological deficits noted No cerebellar signs No acute respite distress no audible wheezing or stridor Appropriate mood and affect Mild paresis of upper extremities Data : 09/30/20 17:20 09/30/20 17:20 A&P Assessment and plan (1) Alcoholism, chronic: Status: Acute (2) Depression: Status: Acute (3) Hypokalemia: Status: Acute (4) BRIANA (acute kidney injury): Status: Acute (5) Starvation: Status: Acute Additional A&P Information Alcohol abuse Last alcoholic drink was on Tuesday, Positive Romberg sign No active withdrawal symptoms however sinus tachycardia evident on telemetry I believe is secondary to dehydration and starvation ketosis Positive ketones in serum and urine Normal albumin level however low folate level detected Normal B12 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, CT head is also showing hypodensities in parietal lobes concern for subacute infarct, kindly reevaluate in the morning if MRI has any merit, for now I would add aspirin, Plavix and high-dose statin, monitor on telemetry PT evaluation Patient is willing to quit cold turkey Will need alcohol Anonymous program referral at the time of discharge to achieve long-term abstinence from alcohol Patient is describing fever 101 at home however no acute infectious source identified I will hold off on antibiotics for now, will request lactic acid and procalcitonin level Hypokalemia secondary to recurrent emesis: Repleted BRIANA secondary to dehydration: Anticipating improvement with fluid resuscitation Check magnesium level Start CIWA protocol and fluid resuscitation Full code DVT prophylaxis Lovenox Cardiac supplements diet Attestations Medical Necessity Statement*: Anticipating discharge within 48 hours overnight monitoring needed because of subacute infarct ataxia and alcohol withdrawal Time Spent in Patient Care: 40mins Coding Level of Care Code 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
[2020-09-30 19:57] LABS: Ketone (Acetest) Serum Positive (Negative)
--- NOTE | 2020-09-30 20:02 | CTR_ITS ---
PROCEDURE INFORMATION: Exam: CT Head Without Contrast Exam date and time: 09/30/2020 8:07 PM Age: 55 years old Clinical indication: Pain; Headache not specified; Patient HX: Alcoholic w/o ETOH x 3 days C/O weakness, confusion, GROVE and frequent falls; Additional info: Frequent falls, headache TECHNIQUE: Imaging protocol: Computed tomography of the head without contrast. Radiation optimization: All CT scans at this facility use at least one of these dose optimization techniques: automated exposure control; mA and/or kV adjustment per patient size (includes targeted exams where dose is matched to clinical indication); or iterative reconstruction. COMPARISON: No relevant prior studies available. RADIATION DOSE METRICS: Total DLP (mGy-cm): 793.36 FINDINGS: Brain: Small chronic infarctions are present in bilateral frontal lobes. Small bilateral parietal lobe hypodensities are noted which are nonspecific. Mild brain atrophy is appreciated. No hemorrhage. No midline shift. Cerebral ventricles: No ventriculomegaly. Bones/joints: Unremarkable. No acute fracture. Paranasal sinuses: Visualized sinuses are unremarkable. No fluid levels. Mastoid air cells: Visualized mastoid air cells are well aerated. Soft tissues: Unremarkable. CT/CT head wo con* [id number] IMPRESSION: Indeterminate bilateral parietal lobe hypodensities. Subacute infarction, demyelinating process or infection are considerations. MRI is recommended for further assessment. Radiation Dose CTDIVOL = (mGy): DLP = 793.36 (mGy-cm)
[2020-09-30] MEDS: lidocaine 1% 5 ML in potassium chloride premix 100 ML 25 ML IV (20:21)
[2020-09-30 22:24] LABS: Magnesium 1.9 mg/dL (1.7-2.3)
[2020-09-30] MEDS: labetalol 5 mg/mL SDV 20mL 10 MG IVP (23:13)
[2020-10-01] VITALS (10 sets, daily range): BP systolic 121–173; BP diastolic 72–94; PULSE 68–112; RESP 18–21; TEMP 36.6–37; O2SAT 95–100
[2020-10-01 00:18] LABS: HIV 1 & 2 Antibody Non-Reactive (Non-Reactiv); HIV 1 & 2 Antigen Non-Reactive (Non-Reactiv)
[2020-10-01 00:21] LABS: Hepatitis A Antibody IgM Non-Reactive (Nonreactive); Hepatitis B Core IgM Non-Reactive (Nonreactive); Hepatitis B Surface Antigen Non-Reactive (Nonreactive); Hepatitis C Virus Antibody Non-Reactive (Nonreactive)
[2020-10-01 00:24] LABS: Rapid Plasma Reagin Syphilis Nonreactive (Nonreactive)
[2020-10-01] MEDS: aspirin 81 mg EC Tablet PO ×2 (01:13→08:52)
[2020-10-01] MEDS: clopidogrel 75 mg Tablet PO ×2 (01:13→08:52)
[2020-10-01] MEDS: enoxaparin 40 mg/0.4 mL Syringe SUBCUT (01:13)
[2020-10-01] MEDS: lidocaine 1% 5 ML in potassium chloride premix 100 ML 25 ML IV (01:16)
[2020-10-01] MEDS: dextrose 5%-sod chloride 0.45% 1,000 ML 100 ML IV ×2 (01:16→14:43)
[2020-10-01 06:51] LABS: Basophils % 0.4 %; Eosinophils % 0.7 %; Hematocrit 28.6 % (42.0-52.0); Hemoglobin 9.8 g/dL (11.7-16.6); Lymphocytes # 1.3 10^3/uL (0.8-4.8); Lymphocytes % 23.2 %; Mean Corpuscular HGB Conc 34.3 g/dL (30.0-36.0); Mean Corpuscular Hemoglobin 36.3 pg (28.0-34.0); Mean Corpuscular Volume 105.9 fL (80-94); Mean Platelet Volume 11.5 fL (7.4-10.4); Monocytes # 0.5 10^3/uL (0.2-0.9); Monocytes % 9.4 %; Neutrophils # 3.63 10^3/uL (1.8-7.7); Neutrophils % 65.9 %; Nucleated Red Blood Cells % 0 %; Platelet Count 74 10^3/cmm (130-400); White Blood Count 5.5 10^3/uL (4.0-10.0)
[2020-10-01 07:23] LABS: Alanine Aminotransferase 30 U/L (0-41); Albumin Level 3.8 g/dL (3.5-5.2); Alkaline Phosphatase 84 IU/L (40-130); Anion Gap 18.7 (5-19); Aspartate Amino Transferase 68 U/L (0-40); Blood Urea Nitrogen 16 mg/dL (6-20); Calcium 8.3 mg/dL (8.5-10.5); Carbon Dioxide 22 mmol/L (22-29); Chloride 97 mmol/L (98-107); Glomerular Filtration Rate 88.3 mL/min (90-130); Glucose 127 mg/dL (65-115); Osmolality Calculated 281 mOsm/kg (285-295); Potassium 3.7 mmol/L (3.5-5.1); Sodium 134 mmol/L (136-145); Total Bilirubin 0.9 mg/dL (0.15-1.2); Total Protein 6.8 g/dL (6.6-8.7)
[2020-10-01] MEDS: acetaminophen 325 mg Tablet PO ×2 (08:51→15:08)
[2020-10-01] MEDS: multivitamin therapeutic Tablet 1 TAB PO (08:52)
[2020-10-01] MEDS: folic acid 1 mg Tablet PO (08:52)
[2020-10-01] MEDS: atorvastatin 40 mg Tablet 80 MG PO (08:52)
[2020-10-01] MEDS: thiamine 100 mg Tablet PO (08:52)
--- NOTE | 2020-10-01 10:00 | PC.CHAP ---
Pastoral Care Encounter/Spiritual Assessment Type of Contact [] Declined supervisor home economics visit [] Patient/Family/Request visit [] Outpatient visit [] Follow-up visit [] Physician referral [] Code/Alert [x] Routine visit [] Staff referral [] Actively dying [] Patient sleeping [] Family support [] [] Out of room [] Palliative care [] [] Receiving care in room [] Pre-surgical visit [] Trauma [] Long length of stay [] ICU visit [] Other: Relational/Emotional Strength [x] Patient feels connected with others/family/visitors/staff [] Distress [] Loneliness/isolation [] Abandonment Spirituality of Patient x[x] Person of [place] [x] Attends Orthodox of their [place] [] Believes in Prayer [] Reads Bible or Gnosticist materials [] There are Spiritual issues to be addressed Manager Research Development Interventions [x] Prayer [x] Active listening [] Non-anxious presence [] Spiritual/emotional support [] Crisis/trauma care [] Spiritual counseling [] Bereavement support [] Provided bereavement packet [] Provided Bible/devotional materials [] Provided toy/stuffed animal, coloring book to patient or family member [] Provided Communion [] Anointing/[place] [] Salvation [] Completed spiritual assessment [] Other: Impact on Illness or Injury [] Angry [] Fearful [] Anxious [] Often cries [] Exhaustion [] Unable to work [] Unable to attend jain [] Unable to walk/stand [] Unable to read [] Unable to drive [] Unable to eat/drink [] Unable to sleep [] Unable to be with family [] Patient intubated [] Other: Summary Time spent with patient 20 min
--- NOTE | 2020-10-01 15:49 | PC.NURSE ---
PT HAS DONE OKAY FOR ME THIS MORNING. PT HAS HAD SOME COMPLAINTS OF NAUSEA AND ACTUALLY THREW UP 250 ML OF CONTENTS. AN ORDER FOR ZOFRAN WAS OBTAINED BUT HAS NOT BEEN NEEDED. PT HAS BEEN RESTING IN BED. ANOTHER NURSE SARAH LEE LPN WAS CALLED IN AND ASSIGNED TO THIS PT. REPORT WAS GIVEN TO THIS NURSE AND SHE HAS TAKEN OVER CARE FOR THIS PT.
--- NOTE | 2020-10-01 19:33 | PM.PN ---
Subjective Subjective: Interval history: He reports he is still feeling quite nauseated, very poor oral intake, fatigue. Had an episode of vomiting earlier today. Reports some episodes of dizziness, but denies symptoms of vertigo. Denies that nausea and vomiting episodes are related to the dizziness. Denies abdominal pain at rest, although says does have pain when he is vomiting. States has been vomiting over several days. Denies ever having upper endoscopy or known prior PAD. Discussed with him concern regarding alcohol induced gastritis. We discussed recommendation regarding complete abstinence, and he is agreeable with the recommendation, verbalizing understanding. Vitals/I&O/Wt Last Vital Signs Temp 98.5 F 10/01/20 19:19 Pulse 97 10/01/20 19:22 Resp 18 10/01/20 19:19 BP 150/78 10/01/20 19:19 Pulse Ox 95 10/01/20 19:19 10/01/20 10/01/20 10/01/20 06:59 14:59 22:59 Intake Total 410 / 1410 1240 / 1240 322 / 1562 Output Total 250 / 250 Balance 410 / 1410 990 / 990 322 / 1312 Weight last 48 hrs Weight 63.957 kg Physical Exam Const: COMMON NORMALS: no acute distress and patient oriented x3 HENMT: COMMON NORMALS: oropharynx normal Neck/C-Spine: COMMON NORMALS: no JVD Resp: COMMON NORMALS: normal respiratory effort and clear to auscultation bilaterally AUSCULTATION: clear to auscultation bilaterally Cardio: COMMON NORMALS: no JVD, regular rhythm, S1 normal heart sound present, S2 normal heart sound present and No murmurs present (Cardio) RHYTHM: regular rhythm HEART SOUNDS: S1 normal heart sound present and S2 normal heart sound present GI: COMMON NORMALS: Normal to inspection, nondistended, normoactive bowel sounds present, Soft to palpation and non-tender PALPATION: Yes Soft to palpation Extremity: COMMON NORMALS: no joint enlargement and no pedal edema Neuro: COMMON NORMALS: patient oriented x3 and moves all extremities Skin: COMMON NORMALS: no rashes or lesions noted GENERAL SKIN EXAM: no rashes or lesions noted Data : 10/01/20 06:35 10/01/20 06:35 A&P Assessment and plan (1) Abnormal CT of brain: Indeterminate bilateral parietal lobe hypodensities, possible subacute infarction versus demyelinating process noted on CT scan. Requested MRI. He reports episodes of undefined dizziness. Denies vertigo. Does not appear to have other focal abnormality at this time, apart from positive Romberg test on admission. Status: Acute (2) Nausea and vomiting: Suspect alcohol induced gastritis had episode of vomiting earlier today, persistent nausea, poor oral intake, pain with vomiting. Add PPI. Will assess chest x-ray. Discussed with him once out of acute episode of illness would benefit from follow-up assessment by endoscopic means. Status: Acute (3) Dizziness: As above. Status: Acute (4) Alcoholism, chronic: Encourage cessation. Will request case management to discuss with him regarding rehabilitation options. Unclear whether may have liver cirrhosis. Denies hematemesis. Status: Acute (5) Depression: Status: Acute (6) Hypokalemia: Replaced Status: Acute (7) BRIANA (acute kidney injury): Resolved Status: Acute (8) Starvation: Continue IV hydration. Trial of oral intake as tolerating. Status: Acute (9) Acute anemia: Hemoglobin decreased from 11.3-9.8. With decrease across all cell lines suspect this is likely secondary dilutional with dehydration prior to admission, IV rehydration. Will reassess hemoglobin again this evening. Continue PPI for gastritis, possibly contributing to GI blood loss. Will check occult blood stool. Discussed with him going forward would also benefit from assessment with EGD. Status: Acute Attestations Medical Necessity Statement*: Continue hospitalization due to persistent severe nausea, lack of oral intake, for additional assessment of episodes of dizziness, poorly defined lesion seen on CT of the head, monitoring and treatment for alcohol withdrawal. Coding Level of Care Code Acute Policy Change Clerk for [facility] Fwd Diagnoses Abnormal CT of brain R90.89 Nausea and vomiting R11.2 Dizziness R42 Alcoholism, chronic F10.20 Depression F32.9 Hypokalemia E87.6 BRIANA (acute kidney injury) N17.9 Starvation T73.0XXA Acute anemia D64.9
[2020-10-01 20:38] LABS: Hemoglobin 9.2 g/dL (11.7-16.6)
[2020-10-01] MEDS: pantoprazole DR 40 mg Tablet PO (21:58)
[2020-10-02] VITALS (8 sets, daily range): BP systolic 138–168; BP diastolic 79–92; PULSE 93–116; RESP 15–18; TEMP 36.7–37.2; O2SAT 96–99
[2020-10-02] MEDS: dextrose 5%-sod chloride 0.45% 1,000 ML 100 ML IV ×2 (00:29→08:59)
[2020-10-02] MEDS: enoxaparin 40 mg/0.4 mL Syringe SUBCUT (00:30)
--- NOTE | 2020-10-02 06:00 | XR_ITS ---
WS: [id number] Exam: XR chest 1V portable [id number] Date/Time of Exam: 10/02/2020 4:51 AM Reason For Exam: pain w vomiting No prior studies. The lungs are fully expanded. Plaque atelectasis in the right base. Normal cardiomediastinal structur es and bony elements. No pleural effusions. Regional bony elements are intact. Monitoring leads super impose the chest. XR/XR chest 1V portable [id number] IMPRESSION: 1. Plaque atelectasis in the right base. No acute process identified.
[2020-10-02 06:05] LABS: Basophils % 0.9 %; Eosinophils # 0.1 10^3/uL (0.0-0.8); Eosinophils % 1.5 %; Hematocrit 30.9 % (42.0-52.0); Hemoglobin 10.4 g/dL (11.7-16.6); Lymphocytes # 1.5 10^3/uL (0.8-4.8); Lymphocytes % 32.7 %; Mean Corpuscular HGB Conc 33.7 g/dL (30.0-36.0); Mean Corpuscular Hemoglobin 35.3 pg (28.0-34.0); Mean Corpuscular Volume 104.7 fL (80-94); Mean Platelet Volume 12.3 fL (7.4-10.4); Monocytes # 0.4 10^3/uL (0.2-0.9); Monocytes % 7.7 %; Neutrophils # 2.67 10^3/uL (1.8-7.7); Nucleated Red Blood Cells % 0 %; Platelet Count 81 10^3/cmm (130-400); Red Blood Count 2.95 10^6/uL (4.1-5.3); Red Cell Distribution Width 12.7 % (12.1-15.1); White Blood Count 4.7 10^3/uL (4.0-10.0)
[2020-10-02 06:06] LABS: SARS Covid-2 Antigen Negative (Negative)
[2020-10-02 06:26] LABS: Alanine Aminotransferase 45 U/L (0-41); Albumin Level 3.7 g/dL (3.5-5.2); Alkaline Phosphatase 103 IU/L (40-130); Anion Gap 14.3 (5-19); Aspartate Amino Transferase 162 U/L (0-40); Blood Urea Nitrogen 7 mg/dL (6-20); Calcium 8.4 mg/dL (8.5-10.5); Carbon Dioxide 24 mmol/L (22-29); Chloride 99 mmol/L (98-107); Globulin 3.2 g/dL (1.3-4.6); Glucose 131 mg/dL (65-115); Lipase 127 U/L (13-60); Osmolality Calculated 278 mOsm/kg (285-295); Potassium 3.3 mmol/L (3.5-5.1); Sodium 134 mmol/L (136-145); Total Bilirubin 1.1 mg/dL (0.15-1.2); Total Protein 6.9 g/dL (6.6-8.7)
[2020-10-02] MEDS: multivitamin therapeutic Tablet 1 TAB PO (08:57)
[2020-10-02] MEDS: thiamine 100 mg Tablet PO (08:57)
[2020-10-02] MEDS: clopidogrel 75 mg Tablet PO (08:58)
[2020-10-02] MEDS: atorvastatin 40 mg Tablet 80 MG PO (08:58)
[2020-10-02] MEDS: folic acid 1 mg Tablet PO (08:58)
[2020-10-02] MEDS: aspirin 81 mg EC Tablet PO (08:58)
[2020-10-02] MEDS: pantoprazole DR 40 mg Tablet PO (08:58)
[2020-10-02] MEDS: potassium chloride oral liq 20 mEq/15 mL UDC 40 MEQ PO (09:02)
[2020-10-02] MEDS: acetaminophen 325 mg Tablet PO ×2 (09:02→14:17)
--- NOTE | 2020-10-02 10:15 | MR_ITS ---
WS: [id number] MRI BRAIN WITH AND WITHOUT CONTRAST HISTORY: Possible CVA, poss demyelination COMPARISON: CT head 09/30/2020 TECHNIQUE: Multiplanar imaging performed through the brain with MultiHance 13 ml's IV. Acute diffusion-weighted abnormality consistent with cortical infarct involving the posterior LEFT pa rietal lobe towards the midline. Bilateral areas of abnormal signal on the FLAIR sequences from prio r infarcts and ischemic disease. Infarct with gliosis involving the RIGHT frontal lobe. There is an a dditional infarct and gliosis in the posterior LEFT frontal lobe. Prior white matter ischemic changes in the anterior RIGHT parietal lobe. There is additional symmetric bilateral occipital lobe areas of increased signal intensity. Mild acute ischemia on the diffusion-weighted images. Small remote petechial hemorrhages associated with the RIGHT frontal lobe infarct. Ventricles and extra-axial spaces are normal. Clivus and pituitary gland are normal. Visualized posterior fossa and brainstem are also normal. Postcontrast images are negative for masses or vascular malformations. Small caliber distal LEFT vert ebral artery. Dural venous sinuses are normal. Paranasal sinuses: Well aerated with no significant disease. Mastoid air cells: Normal. Calvarium and scalp: Normal. MR/MR head wo/w con [id number] IMPRESSION: 1. Acute focal, nonhemorrhagic cortical infarct posterior LEFT parietal lobe. 2. Bilateral symmetric signal abnormality within the occipital lobes with mild ischemic changes on the diffusion sequences. Consider PRES as a possible etiol ogy. 3. Additional chronic multifocal infarcts and ischemic disease.
--- NOTE | 2020-10-02 10:24 | PC.NUTR ---
Nutrition assessment: Pt triggered at risk due to recent weight loss. 14.5% X 4 mo, significant unintentional weight loss. Noted to be dehydrated and emaciated with sarcopenia, per MD notes. No significant medical hx per chart. Pt states not eating due to disliking meals. Recommend to liberalize diet to Regular to promote po intakes and increase kcal intake. Notified Dr. Saunders of recommendation, who stated to leave as Cardiac at this time. Will continue to provide and encourage chocolate Ensure plus with meals. See full nutritional assessment for further details.
[2020-10-02] MEDS: gadobenate dimeglumine 20 mL vial IV (11:00)
--- NOTE | 2020-10-02 11:40 | USCV_ITS ---
Lewis Mendez Age: 55 Gender: M : 1965 Exam Date: 10/02/2020 13:08 Ordering Phys: Trell Saunders MD Technologist: Luciana Holland Exam Location: [facility] – [place] Indication: CVA BP: 168 / 92 HR: 99 Rhythm: Sinus Technical Quality: Adequate MEASUREMENTS (Male / Female) Normal Values 2D ECHO LV Diastolic Diameter PLAX 2.9 cm 4.2 - 5.9 / 3.9 - 5.3 cm LV Systolic Diameter PLAX 2.2 cm LV Chamber Size 2.5 cm IVS Diastolic Thickness 1.2 cm 0.6 - 1.0 / 0.6 - 0.9 cm IVS Systolic Thickness 1.3 cm LVPW Diastolic Thickness 2.3 cm 0.6 - 1.0 / 0.6 - 0.9 cm LVPW Systolic Thickness 2.6 cm RV Chamber Size 2.8 cm LVOT Diameter 2.1 cm LV Ejection Fraction 2D Teich 50.5 % LV Ejection Fraction MOD 2C 62.5 % LV Ejection Fraction 2C AL 63.2 % LA Diameter 3.5 cm LA Width 3.1 cm LA Height 3.9 cm RA Width 0.0 cm RA Height 3.8 cm Aorta at Sinotubular Diameter 2.9 cm M-MODE LV Diastolic Diameter MM 5.7 cm 4.2 - 5.9 / 3.9 - 5.3 cm LV Systolic Diameter MM 3.4 cm LV Ejection Fraction MM Teich 69.9 % IVS Diastolic Thickness MM 0.8 cm 0.6 - 1.0 / 0.6 - 0.9 cm IVS Systolic Thickness MM 1.0 cm LVPW Diastolic Thickness MM 0.9 cm 0.6 - 1.0 / 0.6 - 0.9 cm LVPW Systolic Thickness MM 1.1 cm Aortic Annulus Diameter 3.1 cm LA Ao Ratio MM 1.3 MV E Point Septal Separation 0.6 cm DOPPLER AV Peak Velocity 149.0 cm/s LVOT Peak Velocity 107.0 cm/s AV Area Cont Eq vti 2.6 cm squared AV Area Cont Eq pk 2.4 cm squared MV Area PHT 8.1 cm squared Mitral E to A Ratio 0.7 MV E' Velocity 45.0 cm/s Mitral E to MV E' Ratio 7.3 Mitral E to LV E' Lateral Ratio 7.9 Mitral E to LV E' Septal Ratio 6.8 TR Peak Velocity 216.3 cm/s TR Peak Gradient 18.7 mmHg TV Peak E Velocity 84.0 cm/s Right Atrial Pressure 3.0 mmHg Pulmonary Artery Systolic Pressu 21.7 mmHg PV Peak Velocity 93.0 cm/s RV Acceleration Time 0.1 s RV Ejection Time 0.3 s RV AcT/ET 0.4 FINDINGS Left Ventricle Normal left ventricular size, systolic function and wall thickness, with no regional wall motion abnormalities. Left ventricular ejection fraction is estimated at 70-75%. Normal diastolic function. No evidence of left ventricular thrombus based on the study. Right Ventricle Normal right ventricular size and systolic function. Right ventricular systolic pressure 21.7 mmHg. Right Atrium Normal right atrial size. Left Atrium Normal left atrial size. Mitral Valve Structurally normal mitral valve. No mitral valve stenosis. Mild mitral valve regurgitation. Aortic Valve Aortic valve not well visualized. No aortic valve stenosis. No aortic valve regurgitation. Tricuspid Valve Structurally normal tricuspid valve. Trace tricuspid valve regurgitation. Pulmonic Valve Structurally normal pulmonic valve. No pulmonary valve stenosis. Trace pulmonary valve regurgitation. Pericardium No pericardial effusion. Aorta Normal size aortic root and proximal ascending aorta. CONCLUSIONS 1. Normal left ventricular size, systolic function and wall thickness, with no regional wall motion abnormalities. Left ventricular ejection fraction is estimated at 70-75%. Normal diastolic function. No evidence of left ventricular thrombus based on the study. 2. Normal pulmonary artery pressure. 3. Mild mitral valve regurgitation. 4. No cardioembolic source of stroke. However left atrial appendage/left atrium not well assessed on the study. CHRIS is recommended if clinically indicated. Lety Gimenez MD (Electronically Signed) Final Date: 02 Oct 2020 18:48 S
--- NOTE | 2020-10-02 11:52 | USCV_ITS ---
Lewis Mendez Age: 55 Gender: M : 1965 Exam Date: 10/02/2020 13:20 Ordering Phys: Trell Saunders MD Technologist: Luciana Holland Exam Location: [facility] – [place], [place] Indication: CVA Risk Factors: Previous Vascular Surgery: Right Brachial BP: / Left Brachial BP: / Right Left Velocity (cm/s) Spectral Plaque Velocity (cm/s) Spectral Plaque Syst/Diast Broadening Syst/Diast Broadening 77.20/ 19.80 Prox CCA 62.70 / 23.30 52.90/ 12.10 Mid CCA 43.00 / 12.50 38.10/ 12.40 Distal CCA 29.70 / 10.10 22.40/ 8.50 Prox ICA 37.60 / 13.40 40.60/ 18.20 Mid ICA 70.70 / 35.80 40.10/ 14.40 Distal ICA 36.70 / 18.80 69.10 ECA 71.60 0.77 ICA/CCA 1.65 Antegrade Vertebral Antegrade 55.50/ 25.10 cm/s 46.40/ 15.50 cm/s Tri Subclavian Tri 165.5 59.80 0 FINDINGS Comparison: none available. No significant elevation of systolic or diastolic velocities. Waveforms are normal. Mild bilateral scattered calcified plaque and intimal thickening throughout the common carotid arteries and extending through the bifurcation. CONCLUSIONS Bilateral ICA stenosis less than 50%. Mild bilateral carotid atherosclerosis. Dr. Ebonie Aaron DO (Electronically Signed) Final Date: 02 Oct 2020 14:31 S
[2020-10-02 12:25] LABS: Estmated Average Glucose 74; Hemoglobin A1C 4.2 % (4.0-6.0)
[2020-10-02] MEDS: lisinopril 10 mg Tablet PO (14:14)
--- NOTE | 2020-10-02 19:55 | PM.DCS ---
Discharge Providers Date of Admission: 09/30/20 21:34 Date of Discharge: October 02, 2020 Attending Provider at Admission: Gissel Prasad MD Attending Provider at Discharge: Trell Saunders Primary Care Provider: Demetrius Denise DO Diagnoses at Discharge Discharge Diagnosis (1) Abnormal CT of brain: Status: Acute (2) Nausea and vomiting: Status: Acute (3) Dizziness: Status: Acute (4) Alcoholism, chronic: Status: Acute (5) Depression: Status: Acute (6) Hypokalemia: Status: Acute (7) BRIANA (acute kidney injury): Status: Acute (8) Starvation: Status: Acute (9) Acute anemia: Status: Acute Reason for Visit Reason for Visit: confusion Hospital Course Hospital Course Pleasant 55-year-old gentleman current smoker with daily heavy alcohol intake, denying other significant past medical history, was admitted due to chief complaints of presyncope, dizziness, difficulty with balance/walking, recurrent vomiting, and pain in epigastrium, reported also fever 101 Fahrenheit, productive cough. He had poor oral intake due to nausea, vomiting. On presentation noted dehydrated, with sinus tachycardia, starvation ketosis, thrombocytopenia, acute kidney injury, hyponatremia, hypokalemia, metabolic acidosis. CT showed bilateral parietal lobe hypodensities with consideration of subacute infarction. Chest, abdominal x-ray revealing atelectasis. He received rehydration with IV fluids, due to heavy alcohol intake started on replacement of folic acid, timing, multivitamins, monitored on withdrawal protocol. He was started on aspirin, Plavix, statin due to consideration of possible subacute infarction. Acute infection was otherwise not suspected. He remained afebrile. Procalcitonin was normal. Consideration of possible mild pneumonitis was considered, although otherwise no signs of pneumonia. He was encouraged to use incentive spirometer. Acute kidney injury resolved with rehydration. Mild hypomagnesemia replaced. Initially hypertensive, blood pressures in the 170s, gradually with improvement, were monitored throughout the hospitalization. He was additionally assessed by MRI of the brain which noted acute focal nonhemorrhagic cortical infarct posterior left parietal lobe. Also noted bilateral symmetric signal normality within occipital lobes with mild ischemic changes on diffusion sequences. Also consideration given to FL ES as possible etiology. Additional chronic multifocal infarcts and ischemic disease. He was monitored on telemetry while in hospital, without noted atrial fibrillation. Due to noted multifocal infarction she is set up with cardiac monitoring and discharge. Please follow-up regarding results with consideration of possibility of atrial fibrillation, we discussed that he is aware that in case this is detected he may benefit from long-term anticoagulation. However, as discussed with him his other risk factor is elevated blood pressures. In fact with multiple CVA previously, and even possibility of FL ES, although less likely, we discussed need for more intensive blood pressure control, as well as had multiple extensive discussions regarding alcohol cessation, smoking cessation due to multiple reasons. business services assistant were also asked to discuss with him options for rehabilitation. Possibility of PRES considered as discussed, he also reported episodes of dizziness, had had vomiting, although this is suspected rather to gastritis given epigastric discomfort. He had had no further episodes of dizziness in the hospital. Vomiting on the morning of admission, but none subsequently, none today. No mediastinal widening noted on repeat chest x-ray. Tolerating oral intake, although appetite has been poor. We discussed contribution of alcohol to this, as well as with history of smoking he would also benefit from additional endoscopic evaluation subsequently to exclude other causes of his symptoms including malignancy especially given also noted anemia. He verbalized understanding. Please follow-up blood count and assist him with referral for endoscopic evaluation once he is out of acute episode of illness. He was restarted on lisinopril and this is continued at discharge due to poorly controlled hypertension. He states he had tolerated this medication well in the past. Rapid COVID-19 was negative. A1c was assessed and is 4.2. Additionally echocardiogram and carotid Doppler were obtained. He is asked to follow-up with neurology with regards to consideration of benefit of additional studies including CHRIS. Of note during hospitalization also noted with thrombocytopenia which stabilized around 80,000. With AST, ALT elevation. Viral hepatitis panel was obtained and was negative. Please follow-up his liver parameters, platelet level. Discussed with him concern that due to heavy alcohol intake he may be progressing to liver fibrosis or even cirrhosis. Please follow-up with regards to possible development of these chronic disabling conditions. Physical Exam Const: COMMON NORMALS: no acute distress and patient oriented x3 HENMT: COMMON NORMALS: oropharynx normal Neck/C-Spine: COMMON NORMALS: no JVD Resp: COMMON NORMALS: normal respiratory effort and clear to auscultation bilaterally AUSCULTATION: clear to auscultation bilaterally Cardio: COMMON NORMALS: no JVD, regular rhythm, S1 normal heart sound present, S2 normal heart sound present and No murmurs present (Cardio) RHYTHM: regular rhythm HEART SOUNDS: S1 normal heart sound present and S2 normal heart sound present GI: COMMON NORMALS: Normal to inspection, nondistended, normoactive bowel sounds present, Soft to palpation and non-tender PALPATION: Yes Soft to palpation Extremity: COMMON NORMALS: no joint enlargement and no pedal edema Neuro: COMMON NORMALS: patient oriented x3 and moves all extremities Skin: COMMON NORMALS: no rashes or lesions noted GENERAL SKIN EXAM: no rashes or lesions noted Discharge Data Data Completed and Pending: Completed Studies During Hospitalization Category Date Time Status CT head wo con* [id number] Stat Cat Scan 09/30/20 20:02 Completed XR acute abdomen series [id number] Stat Exams 09/30/20 16:48 Completed XR chest 1V junie ble [id number] Routine Exams 10/02/20 06:00 Completed MR head wo/w con [id number] Routine MRI 10/02/20 10:15 Completed CV carotid duplex BI* [id number] Routine Ultrasound 10/02/20 11:52 Completed CV echo complete* [id number] Routine Ultrasound 10/02/20 11:40 Completed Labs from last 24 hours 10/02/20 10/02/20 10/02/20 05:48 05:48 05:48 WBC 4.7 RBC 2.95 L Hgb 10.4 L Hct 30.9 L MCV 104.7 H MCH 35.3 H MCHC 33.7 RDW 12.7 Plt Count 81 L MPV 12.3 H Neut % (Auto) 57.0 Lymph % (Auto) 32.7 Summers % (Auto) 7.7 Eos % (Auto) 1.5 Baso % (Auto) 0.9 Neut # (Auto) 2.67 Lymph # (Auto) 1.5 Summers # (Auto) 0.4 Eos # (Auto) 0.1 Baso # (Auto) 0.0 Nucleated RBC % (a uto) 0 Nucleated RBCs # 0.0 Sodium 134 L Potassium 3.3 L Chloride 99 Carbon Dioxide 24 Anion Gap 14.3 BUN 7 Creatinine 0.7 GFR Calculation 118.0 Glucose 131 H Estimat Average Gl ucose 74 Hemoglobin A1c 4.2 Calculated Osmolal ity 278 L Calcium 8.4 L Total Bilirubin 1.1 AST 162 H ALT 45 H Alkaline Phosphata se 103 Total Protein 6.9 Albumin 3.7 Globulin 3.2 Lipase 127 H SARS-CoV-2 Ag (Rap id) 10/02/20 10/01/20 05:37 20:19 WBC RBC Hgb 9.2 L Hct MCV MCH MCHC RDW Plt Count MPV Neut % (Auto) Lymph % (Auto) Summers % (Auto) Eos % (Auto) Baso % (Auto) Neut # (Auto) Lymph # (Auto) Summers # (Auto) Eos # (Auto) Baso # (Auto) Nucleated RBC % (a uto) Nucleated RBCs # Sodium Potassium Chloride Carbon Dioxide Anion Gap BUN Creatinine GFR Calculation Glucose Estimat Average Gl ucose Hemoglobin A1c Calculated Osmolal ity Calcium Total Bilirubin AST ALT Alkaline Phosphata se Total Protein Albumin Globulin Lipase SARS-CoV-2 Ag (Rap id) Negative Vitals: Last Vital Signs Temp 98.9 F 10/02/20 16:54 Pulse 93 10/02/20 16:54 Resp 18 10/02/20 16:54 BP 143/79 10/02/20 16:54 Pulse Ox 99 10/02/20 16:54 Discharge Plan Discharge Patient Disposition: Home Condition: Stable Prescriptions: New atorvastatin 40 mg Tablet 80 mg PO DAILY 40 Days RF: 0 aspirin 81 mg Tablet,Delayed Release (Dr/Ec) 81 mg PO DAILY Qty: 30 RF: 0 pantoprazole 40 mg Tablet,Delayed Release (Dr/Ec) 40 mg PO BID Qty: 60 RF: 0 lisinopril 10 mg Tablet 10 mg PO DAILY Qty: 30 RF: 0 folic acid 1 mg Tablet 1 mg PO DAILY Qty: 90 RF: 0 Vitamin B-1 (mononitrate) 100 mg Tablet 100 mg PO DAILY Qty: 90 RF: 0 Thera 400 mcg Tablet 1 tab PO DAILY Qty: 90 RF: 0 Continued allopurinol 100 mg tablet 100 mg PO DAILY PRN (Reason: gout) RF: 0 Discharge Orders: Discharge Order (Routine); Ordered 10/02/20 Ordered By: Trell Saunders Other Ambulatory Orders: CA cardiac event monitor (Routine) Timeframe: 1 Day Facility: [facility] - Location: Cardiac Diagnostic Laboratory Ordered By: Trell Saunders Referrals: [facility] [Provider Group] - 1 week (Depression) Jose Ramirez, BUILDING MAINTENANCE WORKER, MSN, AGACNP-BC [Nurse Practitioner] - 10/08/20 3:30 pm Demetrius Denise DO [Primary Care Provider] - 10/07/20 1:50 pm (CVA) Discharge Diet: Cardiac Discharge Activity: Increase activity as tolerated and As per PT/OT instructions Patient Instructions: Lisinopril (By mouth), Aspirin (By mouth), Thiamine (Vitamin B-1) (By mouth), Folic Acid (By mouth), Atorvastatin (By mouth), Pantoprazole (By mouth), How to Stop Smoking (GEN), Acute Kidney Injury (DC), Hypokalemia (DC), Cigarette Smoking and Your Health (GEN), Depression (DC), Abuse of Alcohol (GEN), Acute Nausea and Vomiting (DC), Ischemic Stroke (GEN), Dizziness (GEN), Anemia (DC), Opioid Safety Activity Restrictions/Additional Instructions: Please discuss with your primary care doctor regarding recent stroke, as well prior strokes. Please follow-up with your primary care doctor regarding control of elevated blood pressure which may lead to additional stroke, as well as due to it contributing to your episodes of dizziness, with findings of signal abnormality in the MRI in the occipital lobes of your brain, possibly secondary to prior stroke or possibly related to elevated blood pressures causing a dangerous condition called PRES. Please resume taking blood pressure medication. Please monitor your blood pressure at home at least 3 times daily. Record values to bring to your appointment. Please follow-up with neurology in office. Please discontinue any alcohol, as it may in addition to causing inflammation in her stomach (gastritis), lead to continued elevation of blood pressures and expose you to risk of additional stroke, in addition to other possible complications including progression to liver fibrosis or cirrhosis, and risk of a number of cancers. Please follow-up with your primary doctor for reassessment of your liver function, and continued follow-up to monitor for progression to liver fibrosis or cirrhosis. Please stop smoking. Please discuss with your doctor regarding anemia, gastritis. Please discuss follow-up with endoscopy to exclude other causes, including to exclude malignancy with history of smoking, alcohol. Please have your primary doctor follow-up your blood count level at the next visit. Please note that your platelet level is also found low, although stable, 81,000 currently. Please have your primary doctor recheck your blood count for platelet level as well. Please note that aspirin given for stroke in combination with low platelet level may increase your risk of bleeding. Please avoid any injury. Seek medical attention in case of bleeding. Please follow-up with behavioral health care with regards to depression. Please seek medical attention immediately in case of any worsening depression or any thoughts of self-harm. Discharge Attestations Time Spent in Discharge Care*: greater than 30 min Quality Metrics Clinical Quality Measures During this hospital stay, did patient experience: Stroke Contraindication to Antithrombotic: Antithrombotic prescribed Contraindication to Anticoagulation: Overlap treatment not indicated Contraindication to Statin: Statin prescribed Coding Level of Care Code Acute Chg FW DC note Diagnoses Abnormal CT of brain R90.89 Nausea and vomiting R11.2 Dizziness R42 Alcoholism, chronic F10.20 Depression F32.9 Hypokalemia E87.6 BRIANA (acute kidney injury) N17.9 Starvation T73.0XXA Acute anemia D64.9
--- NOTE | 2020-10-03 15:04 | PC.RESP ---
Smoking Cessation information sent to patient.
== END 2020-10-02 17:55 | disposition home or self-care (01) ==
LOC: ER 18:56 → MEDSURG 22:51
PROVIDERS: Emergency Medicine; Admitting Provider Internal Medicine; Emergency Provider Student in an Organized Health Care Education/Training Program; PCP Family Medicine; Visit Provider Internal Medicine
DX: R90.89 Other abnormal findings on diagnostic imaging of central nervous system (principal); R11.2 Nausea with vomiting, unspecified; R42 Dizziness and giddiness; F10.20 Alcohol dependence, uncomplicated; F32.9 Major depressive disorder, single episode, unspecified; E87.6 Hypokalemia; N17.9 Acute kidney failure, unspecified; T73.0XXA Starvation, initial encounter; D64.9 Anemia, unspecified; F17.210 Nicotine dependence, cigarettes, uncomplicated; I63.9 Cerebral infarction, unspecified
CPT/HCPCS: 36415; 70450; 70553; 71045; 74022; 80053; 80074; 80306; 80307; 81001; 82009; 82274; 82607; 82746; 83036; 83690; 83735; 84484; 85018; 85025; 85610; 85730; 86592; 87426; 87806; 93005; 93306; 93880; 96365; 96366; 96367; 96372; 96375; 97116; 97161; 97165; 97530; 99285; A9577; G0378; J1650; J2405; J3411; J3475; J3480; J3490; J7030; J7799

== ENCOUNTER → 2020-10-08 15:21 | Outpatient (BNVA) | payer SELFPAY | PROVIDERS: PCP Family Medicine; Visit Provider Nurse Practitioner | DX: Z86.73 Personal history of transient ischemic attack (TIA), and cerebral infarction without residual deficits (principal); F17.210 Nicotine dependence, cigarettes, uncomplicated | CPT/HCPCS: 99204 ==

== ENCOUNTER 2021-06-28 13:52 | Inpatient (IN) | payer MEDICAID, SELFPAY ==
[2021-06-28] VITALS (12 sets, daily range): BP systolic 78–127; BP diastolic 50–83; PULSE 87–130; RESP 14–20; TEMP 36.7–37; O2SAT 95–100; BMI 19.9
--- NOTE | 2021-06-28 14:15 | ECG_ITS ---
[facility] Test Date: 2021-06-28 Pat Name: Lewis Mendez Department: Room: Gender: Male Physical Science Aide: : 1965 Requested By: Charly Vazquez Order Number: [id number] Catherine MD: Sina Lyman M.D. Measurements Intervals [place]in Rate: 99 P: 62 HI: 157 QRS: 69 QRSD: 86 T: 147 QT: 310 QTc: 398 Interpretive Statements SINUS RHYTHM ST DEVIATION AND MODERATE T-WAVE ABNORMALITY, CONSIDER ANTEROLATERAL ISCHEMIA [-0.1+ mV T-WAVE IN V3-V6] ST DEVIATION AND MODERATE T-WAVE ABNORMALITY, CONSIDER INFERIOR ISCHEMIA [-0.1+ mV T-WAVE IN II/aVF] Compared to ECG 09/30/2020 16:58:00 Sinus tachycardia no longer present T-wave abnormality still present Possible ischemia still present Electronically Signed On 06-29-2021 12:13:44 HELP AID by Sina Lyman M.D. [id number]
--- NOTE | 2021-06-28 14:15 | XRR_ITS ---
PROCEDURE INFORMATION: Exam: XR Chest Exam date and time: 06/28/2021 2:15 PM Age: 56 years old Clinical indication: Dyspnea; Patient HX: PT came into er w low BP; PT is a current smoker TECHNIQUE: Imaging protocol: XR of the chest. Views: 1 view. COMPARISON: CR XR chest 1V portable [id number] 10/02/2020 5:11 AM FINDINGS: Lungs: Minor scarring at the lung bases. No consolidation. Pleural spaces: Unremarkable. No pleural effusion. No pneumothorax. Heart/Mediastinum: Unremarkable. No cardiomegaly. Bones/joints: Unremarkable. XR/XR chest 1V portable [id number] IMPRESSION: No acute findings.
[2021-06-28] MEDS: lactated ringers 1,000 ML 999 ML IV ×3 (14:18→15:22)
--- NOTE | 2021-06-28 14:18 | ED_ITS ---
HPI - Weakness General: Chief complaint: Weakness Stated complaint: low bp, sob, weakness Time Seen by Provider: 06/28/21 14:06 Source: patient and family Mode of arrival: other (private vehicle) Limitations: no limitations History of Present Illness: Patient reports that he has had dizziness and diarrhea since or Tuesday of this week. He states he has had 15-20 diarrheal stools each day. He denies any blood in his stool. Denies any fever. Denies any known source of the diarrhea. He denies any contaminated water or contaminated food ingestion. States today he started having near syncopal episodes when he would stand. States he had elevated blood pressure 170/120 yesterday and took a leftover lisinopril tablet of unknown dose yesterday. He has had no blood pressure medication today. He does not take dexamethasone anymore. He states his only medication that he is taken recently is lisinopril. He states lisinopril was a leftover medication for hypertension last year. He does not take this regularly. Possible history includes hypertension, TIA versus CVA last year in which she was transferred to [facility] for evaluation. Does not take any blood thinners. He is allergic to penicillin. He denies any surgical history. He does smoke cigarettes. He states he does drink alcohol frequently but the last alcohol intake was approximately 2 weeks ago. He denies any abdominal pain or chest pain. Relieving factors: rest Exacerbating factors: other (Standing) Associated symptoms: Denies chest pain, chills, melena, fever(s), headache(s), nausea or vomiting Review of Systems Const: Denies: fever(s) or chills Eyes: Denies: change in vision ENMT: Denies: throat pain Card: Reports: lightheadedness; Denies: chest pain, palpitations, irregular heart rhythm or edema Resp: Denies: wheezing GI: Reports: diarrhea; Denies: abdominal pain, nausea, vomiting, constipation, hematochezia or melena : Denies: flank pain Musc: Denies: neck pain or back pain Skin/Breast: Denies: rash or pruritus Neuro: Reports: dizziness; Denies: headache(s) or numbness in extremities Psych: Denies: anxiety Giacomo/Lymph: Denies: enlarged lymph nodes PFSH ED PFSH: Medical History Abnormal brain MRI Abnormal CT of brain Depression No pertinent past medical history Surgical History No pertinent past surgical history Family History Other CAD (coronary artery disease) Social History Smoking and tobacco status: current every day smoker cigarettes [ Other cigarette details: 1 pack/day for 30 years] Alcohol intake: current Household members: family Housing: House History of recent travel: No Physical Exam Const: COMMON NORMALS: patient oriented x3 GENERAL APPEARANCE: cooperative OTHER: Moderate general malaise. Thin. HENMT: COMMON NORMALS: normocephalic and atraumatic HEAD & SCALP: normocephalic and atraumatic FACE & SINUS: normal facial exam Eye: COMMON NORMALS: EOMs intact bilaterally Neck/C-Spine: COMMON NORMALS: full ROM, no lymphadenopathy, supple and no meningeal signs GENERAL: Yes normal visual inspection Lymph: LYMPHATIC: no lymphadenopathy noted Chest: COMMONS NORMALS: normal inspection of the chest and normal palpation of entire chest wall CHEST: No Ecchymosis present and No rash Resp: COMMON NORMALS: normal respiratory effort, No retractions and clear to auscultation bilaterally EFFORT & INSPECTION: No respiratory distress AUSCULTATION: clear to auscultation bilaterally Cardio: COMMON NORMALS: regular rate, regular rhythm and Peripheral pulses 2+ throughout JUGULAR VENOUS DISTENTION: no JVD RATE: regular rate and tachycardic RHYTHM: regular rhythm PERIPHERAL PULSES: Peripheral pulses 2+ throughout OTHER: Capillary refill less than 2 seconds GI: COMMON NORMALS: Normal to inspection, nondistended, normoactive bowel sounds present, Soft to palpation, non-tender and No hepatosplenomegaly present INSPECTION: Yes normal to inspection PALPATION: Yes Soft to palpation and Yes No hepatosplenomegaly present : COMMON NORMALS: Yes no CVA tenderness BLADDER/KIDNEY EXAM: Yes no CVA tenderness Back/Pelvis: COMMON NORMALS: no CVA tenderness Extremity: COMMON NORMALS: normal to inspection, full ROM and capillary refill normal Neuro: COMMON NORMALS: patient oriented x3, CN's II-XII intact bilaterally, no focal motor deficits and no sensory deficits noted MENINGEAL SIGNS: Yes no meningeal signs Psych: COMMON NORMALS: mental status grossly normal and Normal thought process present THOUGHT PROCESS: Normal thought process present Skin: COMMON NORMALS: no rashes or lesions noted and no wounds GENERAL SKIN EXAM: no rashes or lesions noted Course Vital Signs: Vital signs: Vital Signs Temperature 98.3 F 06/28/21 13:58 Pulse Rate 100 06/28/21 17:16 Respiratory Rate 16 06/28/21 17:16 Blood Pressure 96/68 06/28/21 17:16 Pulse Oximetry 98 06/28/21 17:16 MDM - Weakness Medical Decision Making Differential diagnoses: Dehydration due to diarrhea, sepsis Lab Data I reviewed the patient's lab results. : 06/28/21 14:16 06/28/21 14:16 Radiology Impressions Chest X-Ray 06/28/21 14:15 IMPRESSION: No acute findings. Laboratory Results WBC 12.8 10^3/uL (4.0-10.0) H 06/28/21 14:16 RBC 3.96 10^6/uL (4.1-5.3) L 06/28/21 14:16 Hgb 13.7 g/dL (11.7-16.6) 06/28/21 14:16 Hct 39.4 % (42.0-52.0) L 06/28/21 14:16 MCV 99.5 fl (80-94) H 06/28/21 14:16 MCH 34.6 pg (28.0-34.0) H 06/28/21 14:16 MCHC 34.8 g/dL (30.0-36.0) 06/28/21 14:16 RDW 13.6 % (12.1-15.1) 06/28/21 14:16 Plt Count 187 10^3/cmm (130-400) 06/28/21 14:16 MPV 11.8 fL (7.4-10.4) H 06/28/21 14:16 Neut % (Auto) 55.6 % 06/28/21 14:16 Lymph % (Auto) 34.5 % 06/28/21 14:16 Woods % (Auto) 6.5 % 06/28/21 14:16 Eos % (Auto) 1.7 % 06/28/21 14:16 Baso % (Auto) 1.1 % 06/28/21 14:16 Neut # (Auto) 7.09 10^3/uL (1.8-7.7) 06/28/21 14:16 Lymph # (Auto) 4.4 10^3/uL (0.8-4.8) 06/28/21 14:16 Woods # (Auto) 0.8 10^3/uL (0.2-0.9) 06/28/21 14:16 Eos # (Auto) 0.2 10^3/uL (0.0-0.8) 06/28/21 14:16 Baso # (Auto) 0.1 10^3/uL (0.0-0.1) 06/28/21 14:16 Nucleated RBC % (auto) 0 % 06/28/21 14:16 Nucleated RBCs # 0.0 /100WBC 06/28/21 14:16 Sodium 132 mmol/L (136-145) L 06/28/21 14:16 Potassium 3.6 mmol/L (3.5-5.1) 06/28/21 14:16 Chloride 91 mmol/L (98-107) L 06/28/21 14:16 Carbon Dioxide 20 mmol/L (22-29) L 06/28/21 14:16 Anion Gap 24.6 (5-19) H 06/28/21 14:16 BUN 56 mg/dL (6-20) H 06/28/21 14:16 Creatinine 5.7 mg/dL (0.7-1.2) H* 06/28/21 14:16 GFR Calculation 10.4 mL/min (90-130) L 06/28/21 14:16 Glucose 125 mg/dL (65-115) H 06/28/21 14:16 Calculated Osmolality 291 mOsm/kg (285-295) 06/28/21 14:16 Lactate 1.9 mmol/L (0.5-2.2) 06/28/21 14:16 Calcium 10.4 mg/dL (8.5-10.5) 06/28/21 14:16 Total Bilirubin 0.7 mg/dL (0.15-1.2) 06/28/21 14:16 AST 44 U/L (0-40) H 06/28/21 14:16 ALT 28 U/L (0-41) 06/28/21 14:16 Alkaline Phosphatase 80 IU/L (40-130) 06/28/21 14:16 Troponin T Baseline 52 ng/L (0-15) H 06/28/21 14:16 Troponin T 120 Minute 38.05 ng/L (0-15) H 06/28/21 16:27 Delta Troponin T -13.95 ABS# (0-10) L 06/28/21 16:27 Total Protein 7.7 g/dL (6.6-8.7) 06/28/21 14:16 Albumin 5.0 g/dL (3.5-5.2) 06/28/21 14:16 Globulin 2.7 g/dL (1.3-4.6) 06/28/21 14:16 Lipase 76 U/L (13-60) H 06/28/21 14:16 Urine Color Dark yellow (Yellow) 06/28/21 15:38 Urine Appearance Sl hazy (CLEAR) 06/28/21 15:38 Urine pH 5 (5-7) 06/28/21 15:38 Ur Specific [place] 1.010 (1.005-1.030) 06/28/21 15:38 Urine Protein 1+ (Negative) H 06/28/21 15:38 Urine Glucose (UA) Norm (Normal) 06/28/21 15:38 Urine Ketones Negative (Negative) 06/28/21 15:38 Urine Blood 3+ (Negative) H 06/28/21 15:38 Urine Nitrate Negative (Negative) 06/28/21 15:38 Urine Bilirubin 1+ (Negative) H 06/28/21 15:38 Urine Urobilinogen Norm mg/dL (Negative) 06/28/21 15:38 Ur Leukocyte Esterase Trace (Negative) H 06/28/21 15:38 Urine RBC 5-10 /hpf (0-2) H 06/28/21 15:38 Urine WBC 15-25 /hpf (0-5) H 06/28/21 15:38 Ur Squamous Epith Cells 5-10 /hpf (0-5) H 06/28/21 15:38 Amorphous Sediment Not Reportable 06/28/21 15:38 Urine Bacteria 2+ /hpf (NONE) H 06/28/21 15:38 Hyaline Casts 10-15 /lpf H 06/28/21 15:38 SARS-CoV-2 Ag (Rapid) Negative (Negative) 06/28/21 14:40 EKG Data EKG 1: EKG interpretation date: 06/28/21 EKG interpretation time: 14:28 Prior EKG tracings: available for review (09/30/20) Interpretation: EKG shows normal sinus rhythm with left atrial enlargement, normal QRS. Nonspecific ST-T changes with ST depression in V2 V3 V4. Normal axis. Normal QT interval. Normal OR interval. No change from previous EKG in 2020. Other Data 1509: bp 102/60; hr 94 nsr. 1655: hr 91 nsr; bp 107/66 1712: Discussed case with Dr. Koch. He will place patient as an inpatient to [facility]. I wrote bridge orders. Critical Care Time Critical Care Time: Critical Care Time: Yes Total Critical Care Time: 45 Attestation: IV fluids for hypotension. See orders. Discharge Plan Discharge Patient Disposition: Admitted As Inpatient Clinical Impression: Acute renal injury due to hypovolemia, Dehydration, Acute hypotension, Diarrhea in adult patient Urinary tract infection Qualifiers: Urinary tract infection type: site unspecified Hematuria presence: with hematuria Qualified Code(s): N39.0 - Urinary tract infection, site not specified Condition: Stable Coding Level of Care Code ED Roller Print Tender for Chg Fwd Exam Comprehensive
[2021-06-28 14:28] LABS: Basophils # 0.1 10^3/uL (0.0-0.1); Basophils % 1.1 %; Eosinophils # 0.2 10^3/uL (0.0-0.8); Eosinophils % 1.7 %; Hematocrit 39.4 % (42.0-52.0); Hemoglobin 13.7 g/dL (11.7-16.6); Lymphocytes # 4.4 10^3/uL (0.8-4.8); Lymphocytes % 34.5 %; Mean Corpuscular HGB Conc 34.8 g/dL (30.0-36.0); Mean Corpuscular Hemoglobin 34.6 pg (28.0-34.0); Mean Corpuscular Volume 99.5 fl (80-94); Mean Platelet Volume 11.8 fL (7.4-10.4); Monocytes # 0.8 10^3/uL (0.2-0.9); Monocytes % 6.5 %; Neutrophils # 7.09 10^3/uL (1.8-7.7); Neutrophils % 55.6 %; Nucleated Red Blood Cells % 0 %; Platelet Count 187 10^3/cmm (130-400); Red Blood Count 3.96 10^6/uL (4.1-5.3); Red Cell Distribution Width 13.6 % (12.1-15.1); White Blood Count 12.8 10^3/uL (4.0-10.0)
--- NOTE | 2021-06-28 14:31 | PC.NURSE ---
pt placed on continuous spo2, nibp, and cm.
[2021-06-28 14:48] LABS: Troponin(5th) Baseline 52 ng/L (0-15)
[2021-06-28 14:50] LABS: Alanine Aminotransferase 28 U/L (0-41); Alkaline Phosphatase 80 IU/L (40-130); Anion Gap 24.6 (5-19); Aspartate Amino Transferase 44 U/L (0-40); Blood Urea Nitrogen 56 mg/dL (6-20); Calcium 10.4 mg/dL (8.5-10.5); Carbon Dioxide 20 mmol/L (22-29); Chloride 91 mmol/L (98-107); Globulin 2.7 g/dL (1.3-4.6); Glomerular Filtration Rate 10.4 mL/min (90-130); Glucose 125 mg/dL (65-115); Lipase 76 U/L (13-60); Osmolality Calculated 291 mOsm/kg (285-295); Potassium 3.6 mmol/L (3.5-5.1); Sodium 132 mmol/L (136-145); Total Bilirubin 0.7 mg/dL (0.15-1.2); Total Protein 7.7 g/dL (6.6-8.7)
[2021-06-28 14:51] LABS: Lactate (Lactic Acid level) 1.9 mmol/L (0.5-2.2)
[2021-06-28 15:13] LABS: SARS Covid-2 Antigen Negative (Negative)
[2021-06-28 15:57] LABS: Urine Appearance SL Hazy (CLEAR); Urine Color Dark Yellow (Yellow)
[2021-06-28 15:59] LABS: Blood Urine 3+ (Negative); Glucose Urine UA Norm (Normal); Ketones Urine Negative (Negative); Protein Urine 1+ (Negative); pH Urine 5 (5-7)
[2021-06-28 16:00] LABS: Bacteria Urine 2+ /hpf; Bilirubin Urine 1+ (Negative); Leukocyte Esterase Urine Trace (Negative); Nitrate Urine Negative (Negative); Urobilinogen Urine Norm (Negative)
[2021-06-28 16:02] LABS: Add Urine Culture? No; WBC Urine 15-25 /hpf (0-5)
[2021-06-28] MEDS: sodium chloride 0.9% 1,000 ML 999 ML IV (16:38)
[2021-06-28] MEDS: cefTRIAXone 1,000 MG in sodium chloride 0.9% (plus) 50 ML 100 MG IV (16:54)
[2021-06-28 16:57] LABS: Troponin 5 2HR 38.05 ng/L (0-15)
--- NOTE | 2021-06-28 17:28 | P.HP_ITS ---
Providers/Chief Complaint Primary Care Provider: Demetrius Denise DO Chief Complaint: low bp, sob, weakness History of Present Illness Lewis Mendez is a 56 year old male with past medical history of gout, chronic alcohol use, hypertension, came in with chief complaint of watery diarrhea for the last 3 days, according to the patient is having close to 10-15 episodes each day, He states that whenever he drinks anything, it comes out straight. He also had multiple falls in the last 2 to 3 days According to him in feels dizzy and lightheaded, and then goes off balance, and has landed on his knees as well as on the floor, he has never lost consciousness during these episodes. He denies any chest pain shortness of breath fever coug h, palpitation, nausea vomiting abdominal pain, denies any difficulty passing urine, denies any burning, pain while passing urine, is able to completely empty the bladder. Upon arrival in the ER he was worked up for for above-mentioned complaint. Pertinent imaging studies: X-ray chest: No infiltrates, no effusion no pneumothorax no acute process, EKG sinus rhythm with ST depression in lead V2, V3, V4 Pertinent labs: WBC 12.8 H&H 13.7 and 39.4,plt : 187, serum sodium 132 serum potassium 3.6, seru m bicarbonate 20, anion gap 24 BUN serum creatinine 56 / 5 .7 , lipase 76, AST:44 ALT alk phos normal , total bilirubin 0.7 , Baseline troponin .52 , 2-hour troponin 38: 2-hour delta -13.9 , Urinalysis: Trace leukocyte esterase, urine bacteria 2+, urine WBC 15-25/hpf Rapid Covid negative Random urine sodium and random urine creatinine pending. Patient received close to 4 Ls IV fluids in the ER. Upon arrival his systolic blood pressure was in 80s. Patient responded well to fluid boluses, currently his MAP is greater than 65. Review of Systems General: Reports: 10 or more systems reviewed and unremarkable except in HPI and below Const: Denies: fever(s), chills, body aches, change in appetite or diaphoresis Card: Denies: palpitations, edema, swelling of feet/ankles, dyspnea on exertion, orthopnea or leg pain with exertion Resp: Denies: dyspnea, productive cough, wheezing or pain on inspiration GI: Denies: abdominal pain, nausea, vomiting or constipation : Denies: flank pain or difficulty urinating Musc: Denies: back pain, extremity pain or extremity swelling Neuro: Denies: headache(s), difficulty walking or confusion Medications/Allergies Home Medications Medication Instructions Recorded Confirmed Last Taken Type allopurinol 100 mg tablet 100 mg PO DAILY PRN 09/30/20 06/28/21 09/26/20 History folic acid 1 mg tablet 1 mg PO DAILY #90 tab 10/02/20 06/28/21 06/27/21 Rx lisinopril 10 mg tablet 10 mg PO DAILY #30 tab 10/02/20 06/28/21 06/27/21 Rx multivitamin with folic acid 400 1 tab PO DAILY #90 tab 10/02/20 06/28/21 06/27/21 Rx mcg tablet (Thera) thiamine mononitrate (vit B1) 100 100 mg PO DAILY #90 tab 10/02/20 06/28/21 06/27/21 Rx mg tablet (Vitamin B-1 (mononitrate)) prednisone 10 mg tablet 10 mg PO DAILY PRN 06/28/21 06/28/21 Unknown History Allergies Allergy/AdvReac Type Severity Reaction Status Date / Time Penicillins Allergy ALGY-Rash Verified 10/08/20 15:43 PFSH Acute PFSH: Medical History Abnormal brain MRI Abnormal CT of brain Depression No pertinent past medical history Surgical History No pertinent past surgical history Family History Other CAD (coronary artery disease) Social History Smoking and tobacco status: current every day smoker cigarettes [ Other cigarette details: 1 pack/day for 30 years] Alcohol intake: current Household members: family Housing: House History of recent travel: No Vitals/I&O/Wt Last Vital Signs Temp 98.3 F 06/28/21 13:58 Pulse 100 06/28/21 17:16 Resp 16 06/28/21 17:16 BP 96/68 06/28/21 17:16 Pulse Ox 98 06/28/21 17:16 06/28/21 06/28/21 06/28/21 06:59 14:59 22:59 Intake Total 0 / 0 1999 / 1999 Output Total 300 / 300 Balance 0 / 0 1700 / 1700 Weight last 48 hrs Weight 59.421 kg Physical Exam Const: COMMON NORMALS: patient oriented x3 HENMT: COMMON NORMALS: normocephalic and atraumatic HEAD & SCALP: normocephalic and atraumatic EXTERNAL EAR: Yes external ears normal Eye: COMMON NORMALS: no scleral icterus GENERAL EYE: appearance normal, both eyes and all related structures Chest: COMMONS NORMALS: normal inspection of the chest and normal palpation of entire chest wall CHEST: Yes Symmetrical chest wall rise Resp: COMMON NORMALS: normal respiratory effort, No retractions, No use of accessory muscles and clear to auscultation bilaterally EFFORT & INSPECTION: Yes symmetric chest movement AUSCULTATION: clear to auscultation bilaterally Cardio: COMMON NORMALS: regular rate, regular rhythm, S1 normal heart sound present, S2 normal heart sound present, No gallops present (Cardio), No murmurs present (Cardio), No rub (Cardio) and Peripheral pulses 2+ throughout RATE: r egular rate RHYTHM: regular rhythm HEART SOUNDS: S1 normal heart sound present and S2 normal heart sound present PERIPHERAL PULSES: Peripheral pulses 2+ throughout GI: COMMON NORMALS: Normal to inspection, nondistended, normoactive bowel sounds present, Soft to palpation, non-tender, No hepatosplenomegaly present and no masses AUSCULTATION: Yes normoactive bowel sounds PALPATION: Yes Soft to palpation and Yes No hepatosplenomegaly present RECTAL EXAM: Yes deferred : COMMON NORMALS: Yes no CVA tenderness BLADDER/KIDNEY EXAM: Yes no CVA tenderness Back/Pelvis: COMMON NORMALS: no CVA tenderness Extremity: COMMON NORMALS: no clubbing, cyanosis or edema and no pedal edema Neuro: COMMON NORMALS: patient oriented x3 Data : 06/28/21 14:16 06/28/21 14:16 Micro: Microbiology 06/28/21 14:39 Blood Culture - Preliminary Blood SPECIMEN COLLECTED 06/28/21 14:16 Blood Culture - Preliminary Blood SPECIMEN COLLECTED A&P Assessment and plan (1) Dehydration: Status: Acute (2) BRIANA (acute kidney injury): Status: Acute (3) Alcoholism, chronic: Status: Acute (4) Diarrhea: Status: Acute Plan Assessment # Acute kidney injury: Likely prerenal: Secondary to severe dehydration, possible contribution from ATN secondary to acute hypotension. Patient came in with chief complaint of diarrhea, was hypotensive in the ER, was also complaining of dizziness and lightheadedness. Current serum creatinine is: 5.7, baseline serum creatinine:0.8-1 Currently BUN is 56 Follow urine random sodium and creatinine: Follow renal ultrasound Strict intake output charting Continue to monitor BMP Continue IV hydration with normal saline at 125 cc an hour #Hypovolemic hyponatremia: Plan as above #Leukocytosis likely secondary dehydration: Continue to monitor WBC #Diarrhea: Follow stool study Follow C. difficile PCR #Chronic alcohol use According to the patient his last drink was 2 weeks back. Continue folic acid thiamine multivitamins #Severe dehydration #Hypertension: Currently normotensive Continue to hold lisinopril #Gout: continue allopurinol #DVT prophylaxis on heparin #CODE STATUS full code Attestations Medical Necessity Statement*: Patient needs to be in hospital for management of BRIANA, severe dehydration, diarrhea, need for IV fluids. Anticipated length of stay greater than 2 midnights. Time Spent in Patient Care: Greater than 35 minutes (>than 50% of time spent in counselling and/or direct pt care on unit) . 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
--- NOTE | 2021-06-28 17:28 | USR_ITS ---
PROCEDURE INFORMATION: Exam: US Retroperitoneal; Complete; Kidneys and Bladder Exam date and time: 06/28/2021 5:28 PM Age: 56 years old Clinical indication: Other: Lab work; Additional info: Kirk TECHNIQUE: Imaging protocol: Real-time ultrasound of the retroperitoneum with image documentation. Complete exam focused on the kidneys and bladder. COMPARISON: CR XR acute abdomen series [id number] 09/30/2020 6:08 PM FINDINGS: Right kidney: The right kidney measures 9.6 cm in length. Renal cortex echogenicity is within normal limits. No stones. No hydronephrosis. Left kidney: The left kidney measures 8.8 cm in length. Renal cortex echogenicity is within normal limits. No stones. No hydronephrosis. Urinary bladder: Unremarkable. US/US renal BI* [id number] IMPRESSION: Unremarkable kidneys and bladder.
[2021-06-28 18:21] LABS: Urine Creatinine 99 mg/dL (39-259); Urine Random Sodium 64 mmol/L
[2021-06-28] MEDS: sodium chloride 0.9% 1,000 ML 100 ML IV (18:50)
--- NOTE | 2021-06-28 19:18 | PC.NURSE ---
Report to Anabell PANDEY at this time.
[2021-06-28] MEDS: heparin 5,000 unit/mL INJ 1 mL 5000 UNIT SUBCUT (20:30)
[2021-06-28 20:46] LABS: Troponin 5 6HR 36.26 ng/L (0-15)
[2021-06-28 20:48] LABS: Troponin 5 6HR Delta -15.74 ng/L (0-12)
[2021-06-29] VITALS (9 sets, daily range): BP systolic 98–143; BP diastolic 56–84; PULSE 75–89; RESP 16–20; TEMP 36.8–37.2; O2SAT 94–98
[2021-06-29 04:37] LABS: Basophils # 0.1 10^3/uL (0.0-0.1); Basophils % 1.4 %; Eosinophils # 0.2 10^3/uL (0.0-0.8); Eosinophils % 2.8 %; Hematocrit 30.8 % (42.0-52.0); Hemoglobin 10.5 g/dL (11.7-16.6); Lymphocytes # 2.5 10^3/uL (0.8-4.8); Lymphocytes % 44.1 %; Mean Corpuscular HGB Conc 34.1 g/dL (30.0-36.0); Mean Corpuscular Hemoglobin 34.4 pg (28.0-34.0); Monocytes # 0.4 10^3/uL (0.2-0.9); Monocytes % 7.5 %; Neutrophils # 2.49 10^3/uL (1.8-7.7); Neutrophils % 43.7 %; Nucleated Red Blood Cells % 0 %; Platelet Count 105 10^3/cmm (130-400); Red Blood Count 3.05 10^6/uL (4.1-5.3); Red Cell Distribution Width 13.3 % (12.1-15.1); White Blood Count 5.7 10^3/uL (4.0-10.0)
[2021-06-29 05:02] LABS: Alanine Aminotransferase 24 U/L (0-41); Albumin Level 3.6 g/dL (3.5-5.2); Alkaline Phosphatase 68 IU/L (40-130); Aspartate Amino Transferase 45 U/L (0-40); Blood Urea Nitrogen 41 mg/dL (6-20); Calcium 9.1 mg/dL (8.5-10.5); Carbon Dioxide 20 mmol/L (22-29); Chloride 103 mmol/L (98-107); Globulin 2.2 g/dL (1.3-4.6); Glucose 89 mg/dL (65-115); Magnesium 1.4 mg/dL (1.7-2.3); Osmolality Calculated 292 mOsm/kg (285-295); Phosphorus 3.7 mg/dL (2.5-4.5); Sodium 136 mmol/L (136-145); Total Bilirubin 0.4 mg/dL (0.15-1.2); Total Protein 5.8 g/dL (6.6-8.7)
[2021-06-29] MEDS: sodium chloride 0.9% 1,000 ML 100 ML IV ×2 (05:05→15:18)
[2021-06-29 05:09] LABS: Anion Gap 16.8 (5-19); Potassium 3.8 mmol/L (3.5-5.1)
--- NOTE | 2021-06-29 06:38 | PC.NURSE ---
Patient alert and oriented. Slept most of night. Denied pain. Fluids still infusing at 100. Will continue to monitor.
[2021-06-29] MEDS: folic acid 1 mg Tablet PO (08:21)
[2021-06-29] MEDS: multivitamin therapeutic Tablet 1 TAB PO (08:21)
[2021-06-29] MEDS: thiamine 100 mg Tablet PO (08:21)
[2021-06-29] MEDS: magnesium sulfate premix 2 GM/50 ML PIGGYBACK IV (09:20)
--- NOTE | 2021-06-29 14:42 | P.PN_ITS ---
Subjective Subjective: Patient was seen this morning, he tells me that his diarrhea has significant improved, he feels less lightheaded, no nausea, no vomiting, denies any tremors, no chest pain, no palpitations, no headache, no blurry vision, denies hearing or seeing things are not there, last alcohol drink was about 2 weeks ago, denies any IV drug use, no history of food poisoning, no history of well water consumption. 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, he was supposed to have a loop recorder, but it cost over $6000 and he could not afford it Vitals/I&O/Wt Last Vital Signs Temp 98.3 F 06/29/21 11:46 Pulse 78 06/29/21 11:46 Resp 18 06/29/21 11:46 BP 111/73 06/29/21 11:46 Pulse Ox 94 06/29/21 11:46 06/28/21 06/29/21 06/29/21 22:59 06:59 14:59 Intake Total 3050 / 3050 1540 / 4590 480 / 480 Output Total 600 / 600 1400 / 2000 1300 / 1300 Balance 2450 / 2450 140 / 2590 -820 / -820 Weight last 48 hrs Weight 59.421 kg Physical Exam Const: COMMON NORMALS: no acute distress and patient oriented x3 Resp: COMMON NORMALS: normal respiratory effort, No retractions, No use of accessory muscles and clear to auscultation bilaterally AUSCULTATION: clear to auscultation bilaterally Cardio: COMMON NORMALS: regular rate, regular rhythm, S1 normal heart sound present and S2 normal heart sound present RATE: regular rate RHYTHM: regular rhythm HEART SOUNDS: S1 normal heart sound present and S2 normal heart sound present GI: COMMON NORMALS: Normal to inspection, nondistended, normoactive bowel sounds present, Soft to palpation, non-tender and No hepatosplenomegaly present PALPATION: Yes Soft to palpation and Yes No hepatosplenomegaly present Extremity: COMMON NORMALS: no pedal edema Neuro: COMMON NORMALS: patient oriented x3 Psych: COMMON NORMALS: mental status grossly normal Data : 06/29/21 03:40 06/29/21 03:40 Micro: Microbiology 06/28/21 14:16 Blood Culture - Preliminary Blood NEGATIVE TO DATE 06/28/21 19:30 Stool Lactoferrin - Final Stool Enteric Pathogens (PCR) - Final Parasite Antigen Panel - Final C.difficile Toxin B Gene (PCR) - Final Occult Blood (FIT) - Final 06/28/21 15:38 Urine Culture - Preliminary Urine,Voided 06/28/21 14:39 Blood Culture - Preliminary Blood SPECIMEN COLLECTED A&P Assessment and plan (1) Dehydration: Status: Acute (2) BRIANA (acute kidney injury): Status: Acute (3) Alcoholism, chronic: Status: Acute (4) Diarrhea: Status: Acute Plan Assessment # Acute kidney injury: Likely prerenal: Secondary to severe dehydration, possible contribution from ATN secondary to acute hypotension. Patient came in with chief complaint of diarrhea, was hypotensive in the ER, was also complaining of dizziness and lightheadedness. Current serum creatinine is: 2.5, baseline serum creatinine:0.8-1 Currently BUN is 41 Follow urine random sodium and creatinine: Follow renal ultrasound renal ultrasound unremarkable Strict intake output charting Continue to monitor BMP Continue IV hydration with normal saline at 125 cc an hour #Hypovolemic hyponatremia: Plan as above #Leukocytosis likely secondary dehydration: Continue to monitor WBC #Diarrhea: Stool studies so far unremarkable C. difficile negative Positive stool lactoferrin Stool positive for blood #Chronic alcohol use According to the patient his last drink was 2 weeks back. 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
[2021-06-29] MEDS: cefTRIAXone 1,000 MG in sodium chloride 0.9% (plus) 50 ML 100 MG IV (15:18)
[2021-06-29 16:02] LABS: Hepatitis A Antibody IgM Non-Reactive (Nonreactive); Hepatitis B Core IgM Non-Reactive (Nonreactive); Hepatitis B Surface Antigen Non-Reactive (Nonreactive); Hepatitis C Virus Antibody Non-Reactive (Nonreactive)
[2021-06-29 16:21] LABS: HIV 1 & 2 Antibody Non-Reactive (Non-Reactiv); HIV 1 & 2 Antigen Non-Reactive (Non-Reactiv)
--- NOTE | 2021-06-29 19:09 | PC.NURSE ---
Report to Betsy London LPN at this time.
[2021-06-29] MEDS: heparin 5,000 unit/mL INJ 1 mL 5000 UNIT SUBCUT (20:57)
[2021-06-30] VITALS: BP 152/79; PULSE 74; RESP 17; TEMP 36.8; O2SAT 97
[2021-06-30] MEDS: sodium chloride 0.9% 1,000 ML 100 ML IV (01:53)
[2021-06-30 04:00] VITALS: BP 153/88; PULSE 68; RESP 17; TEMP 36.6; O2SAT 97
[2021-06-30 05:31] LABS: Basophils # 0.1 10^3/uL (0.0-0.1); Basophils % 1.2 %; Eosinophils # 0.2 10^3/uL (0.0-0.8); Eosinophils % 3.1 %; Hematocrit 28.4 % (42.0-52.0); Hemoglobin 9.8 g/dL (11.7-16.6); Lymphocytes # 1.9 10^3/uL (0.8-4.8); Lymphocytes % 39.1 %; Mean Corpuscular HGB Conc 34.5 g/dL (30.0-36.0); Mean Corpuscular Hemoglobin 34.3 pg (28.0-34.0); Mean Corpuscular Volume 99.3 fl (80-94); Mean Platelet Volume 11.5 fL (7.4-10.4); Monocytes # 0.4 10^3/uL (0.2-0.9); Monocytes % 8.9 %; Neutrophils # 2.26 10^3/uL (1.8-7.7); Neutrophils % 47.1 %; Nucleated Red Blood Cells % 0 %; Platelet Count 109 10^3/cmm (130-400); Red Blood Count 2.86 10^6/uL (4.1-5.3); Red Cell Distribution Width 13.2 % (12.1-15.1); White Blood Count 4.8 10^3/uL (4.0-10.0)
[2021-06-30 05:52] LABS: Alanine Aminotransferase 27 U/L (0-41); Albumin Level 3.6 g/dL (3.5-5.2); Alkaline Phosphatase 73 IU/L (40-130); Anion Gap 14.6 (5-19); Aspartate Amino Transferase 40 U/L (0-40); Blood Urea Nitrogen 24 mg/dL (6-20); Calcium 9.4 mg/dL (8.5-10.5); Carbon Dioxide 20 mmol/L (22-29); Chloride 105 mmol/L (98-107); Globulin 2.5 g/dL (1.3-4.6); Glomerular Filtration Rate 87.9 mL/min (90-130); Glucose 94 mg/dL (65-115); Osmolality Calculated 286 mOsm/kg (285-295); Potassium 3.6 mmol/L (3.5-5.1); Sodium 136 mmol/L (136-145); Total Bilirubin 0.4 mg/dL (0.15-1.2); Total Protein 6.1 g/dL (6.6-8.7)
[2021-06-30 07:37] VITALS: BP 152/82; PULSE 75; RESP 18; TEMP 36.7; O2SAT 98
[2021-06-30] MEDS: thiamine 100 mg Tablet PO (08:23)
[2021-06-30] MEDS: multivitamin therapeutic Tablet 1 TAB PO (08:23)
[2021-06-30] MEDS: folic acid 1 mg Tablet PO (08:23)
--- NOTE | 2021-06-30 08:42 | CT_ITS ---
WS: [id number] CT ABDOMEN AND PELVIS WITH CONTRAST HISTORY: hepatic lesion TECHNIQUE: Imaging performed of the abdomen and pelvis with IV contrast. Single phase imaging of the abdomen. Coronal and sagittal reformats are submitted. All CT scans at [facility] use at [facility] one of these dose optimization techniques: automated exposure control; mA and/or kV adjustment per patient size (includes targeted exams where dose is matched to clinical indication); or iterative re construction. IV CONTRAST: Omnipaque 300; 95 mL IV. Oral contrast: No DLP: 913.14 mGy.cm COMPARISON: Liver ultrasound 06/30/2021. Lower thorax: Mild dependent changes at the lung bases. Subsegmental areas of atelectasis with pleura l thickening. Small amount of fluid at the LEFT lung base. No mass. Heart is normal size. No hiatal h ernia. Liver/biliary system: Liver is normal size. Diffusely described possible lesion in the LEFT lobe of t he liver is not identified by CT. This was probably an artifact or normal variant for this patient on the ultrasound. There is a normal enhancement of the liver. Portal vein and hepatic veins are normal . Gallbladder: Gallbladder is slightly contracted with mild wall enhancement. This may be due to nonfas ting. Gallbladder was normal on the recent ultrasound. Pancreas: Normal size pancreas and pancreatic duct. No adjacent inflammation. Spleen: Normal size spleen. No mass or infarct. Adrenal glands: Normal. Right kidney: Mild perinephric stranding. No obstruction. There are a few nonspecific and too small t o characterize hypodensities throughout the cortex. Left kidney: Mild perinephric stranding with no obstruction. 2 small to characterize hypodensities sc attered throughout the kidney. Aorta: Atherosclerotic plaque. No aneurysm. Enhancement of the celiac axis and SMA are normal. Mild a therosclerotic plaque proximal RIGHT renal artery. AMAN is patent. Mild atherosclerotic changes within the iliac arteries. Lymphadenopathy: 10 mm celiac axis lymph node. There are a few additional smaller lymph nodes at the celiac axis. Small retroperitoneal lymph nodes. No free air. There is a small amount of free fluid in the pelvis. Free fluid: Small amount of free fluid in the pelvis. GI tract: Moderately well distended stomach with food products. No small bowel obstruction. The appen kevin is elongated and measures 8 mm which is upper limits normal. There is mild enhancement throughout the appendix but there is no adjacent inflammation or fluid. There are a few scattered diverticula t hroughout the sigmoid colon. Abdominal wall: Unremarkable abdominal wall. No hernia. Pelvis: No free fluid or adenopathy within the pelvis. Normally distended urinary bladder. Bones: Bilateral pars defects at L5. No fractures. CT/CT abdomen pelvis w con* [id number] IMPRESSION: 1. No hepatic mass or abnormality identified. Changes seen within the liver th e prior ultrasound probably related to normal variant. 2. Appendix is top normal size with no adjacent inflammation. 3. Small amount of free fluid in the pelvis. May be related to patient's acute renal insufficiency. 4. Mild perinephric stranding around each kidney with no obstruction. 5. Mild atherosclerosis aorta. 6. Bilateral pars defects at L5. 7. Mild dependent changes with pleural thickening at the lung bases and a very small LEFT pleural effusion.
--- NOTE | 2021-06-30 09:30 | PC.CHAP ---
Pastoral Care Encounter/Spiritual Assessment Type of Contact [] Declined manager mobile visit [] Patient/Family/Request visit [] Outpatient visit [] Follow-up visit [] Physician referral [] Code/Alert [x] Routine visit [] Staff referral [] Actively dying [] Patient sleeping [] Family support [] [] Out of room [] Palliative care [] [] Receiving care in room [] Pre-surgical visit [] Trauma [] Long length of stay [] ICU visit [] Other: Relational/Emotional Strength [x] Patient feels connected with others/family/visitors/staff [] Distress [] Loneliness/isolation [] Abandonment Spirituality of Patient [x] Person of [place] [x] Attends Orthodoxy of their [place] [x] Believes in Prayer [] Reads Bible or Jainism materials [] There are Spiritual issues to be addressed Instrument Repair Specialist Interventions [x] Prayer [x] Active listening [x] Non-anxious presence [x] Spiritual/emotional support [] Crisis/trauma care [] Spiritual counseling [] Bereavement support [] Provided bereavement packet [] Provided Bible/devotional materials [] Provided toy/stuffed animal, coloring book to patient or family member [] Provided Communion [] Anointing/[place] [] Salvation [] Completed spiritual assessment [] Other: Impact on Illness or Injury [] Angry [] Fearful [] Anxious [] Often cries [] Exhaustion [] Unable to work [] Unable to attend yazidism [] Unable to walk/stand [] Unable to read [] Unable to drive [] Unable to eat/drink [] Unable to sleep [] Unable to be with family [] Patient intubated [] Other: Summary Pt said he is being released and headed home to [place] His daughter is taking his granddaughter to the doctor and will then come down to pick him up. In May 2019 Pt's mother past from [employer]. 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 He stated he was recently able to place her in a residential care facility. He plans to return to work when he can find employment. 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 He does not really care for that employment but will do whatever he needs to do. He has a son and a daughter. His daughter has one daughter and one son. Pt's son has never and has no children. Pt attends [employer] in [facility] where his father in law is the manuscripts curator. Although he mentioned a father in law Pt did not talk about his . Time spent with patient 15m
--- NOTE | 2021-06-30 09:57 | P.DS_ITS ---
Discharge Providers Date of Admission: 06/28/21 17:17 Date of Discharge: June 30, 2021 Attending Provider at Admission: Shamar Koch MD Attending Provider at Discharge: Anton Serrano MD Primary Care Provider: Demetrius Denise DO Diagnoses at Discharge Discharge Diagnosis (1) Dehydration: Status: Acute (2) BRIANA (acute kidney injury): Status: Acute (3) Alcoholism, chronic: Status: Acute (4) Diarrhea: Status: Acute Reason for Visit Reason for Visit: low bp, sob, weakness Hospital Course Hospital Course This is a 56-year-old male with a past medical history of multiple CVAs, chronic alcohol use, hypertension, history of gout who presents to [facility] due to diarrhea, dehydration Patient was admitted to [facility] for acute kidney injury, likely secondary to severe dehydration, and acute hypotension, received IV hydration, clinically improved, creatinine improved to 0.9 discharge, discharged on ins tructions to drink plenty of electrolyte balance fluids In terms of the etiology behind his diarrhea, C. difficile negative, stool studies so far unremarkable, Hemoccult was positive, follow-up with primary care provider for consideration of colonoscopy For his thrombocytopenia, likely secondary chronic alcoholism Chronic alcohol use, advised to quit alcohol consumption Ultrasound abdomen 1.? No cholelithiasis. 2.? Seen only on one image is a mild bulge of the contour of the LEFT hepatic lobe with mild change in echotexture of the liver. Recommend follow-up CT with IV and oral contrast to evaluate for subtle hepatic lesion. 3.? Pancreas not visualized by ultrasound. CT scan of the abdomen pelvis: 1.? No hepatic mass or abnormality identified. Changes seen within the liver the prior ultrasound probably related to normal variant. 2.? Appendix is top normal size with no adjacent inflammation. 3.? Small amount of free fluid in the pelvis. May be related to patient's acute renal insufficiency. 4.? Mild perinephric stranding around each kidney with no obstruction. 5.? Mild atherosclerosis aorta. 6.? Bilateral pars defects at L5. 7.? Mild dependent changes with pleural thickening at the lung bases and a very small LEFT pleural effusion. ? Physical Exam Const: COMMON NORMALS: no acute distress and patient oriented x3 Resp: COMMON NORMALS: normal respiratory effort, No retractions, No use of accessory muscles and clear to auscultation bilaterally AUSCULTATION: clear to auscultation bilaterally Cardio: COMMON NORMALS: regular rate, regular rhythm, S1 normal heart sound present and S2 normal heart sound present RATE: regular rate RHYTHM: regular rhythm HEART SOUNDS: S1 normal heart sound present and S2 normal heart sound present GI: COMMON NORMALS: Normal to inspection, nondistended, normoactive bowel sounds present, Soft to palpation and non-tender PALPATION: Yes Soft to palpation Extremity: COMMON NORMALS: no pedal edema Neuro: COMMON NORMALS: patient oriented x3 Discharge Data Studies Completed and Pending Completed Studies During Hospitalization Category Date Time Status XR chest 1V portable [id number] Urgent Exams 06/28/21 14:15 Completed US liver [id number] Routine Ultrasound 06/30/21 14:41 Completed US renal BI* [id number] Urgent Ultrasound 06/28/21 17:28 Completed Pending at discharge Category Date Time Status CT abdomen pelvis w con* [id number] Routine Cat Scan 06/30/21 08:42 Ordered Blood Culture Stat Lab 06/28/21 14:39 Results CBC Auto Diff [Complete Blood Count w/Auto] AM LABS Lab 07/01/21 04:00 Ordered Comprehensive Metabolic Panel AM LABS Lab 07/01/21 04:00 Ordered Radiology Impressions Chest X-Ray 06/28/21 14:15 IMPRESSION: No acute findings. Renal Ultrasound 06/28/21 17:28 IMPRESSION: Unremarkable kidneys and bladder. Liver Ultrasound 06/30/21 14:41 IMPRESSION: 1. No cholelithiasis. 2. Seen only on one image is a mild bulge of the contour of the LEFT hepatic lobe with mild change in echotexture of the liver. Recommend follow-up CT with IV and oral contrast to evaluate for subtle hepatic lesion. 3. Pancreas not visualized by ultrasound. Laboratory Results WBC 4.8 10^3/uL (4.0-10.0) 06/30/21 04:53 RBC 2.86 10^6/uL (4.1-5.3) L 06/30/21 04:53 Hgb 9.8 g/dL (11.7-16.6) L 06/30/21 04:53 Hct 28.4 % (42.0-52.0) L 06/30/21 04:53 MCV 99.3 fl (80-94) H 06/30/21 04:53 MCH 34.3 pg (28.0-34.0) H 06/30/21 04:53 MCHC 34.5 g/dL (30.0-36.0) 06/30/21 04:53 RDW 13.2 % (12.1-15.1) 06/30/21 04:53 Plt Count 109 10^3/cmm (130-400) L 06/30/21 04:53 MPV 11.5 fL (7.4-10.4) H 06/30/21 04:53 Neut % (Auto) 47.1 % 06/30/21 04:53 Lymph % (Auto) 39.1 % 06/30/21 04:53 [place] % (Auto) 8.9 % 06/30/21 04:53 Eos % (Auto) 3.1 % 06/30/21 04:53 Baso % (Auto) 1.2 % 06/30/21 04:53 Neut # (Auto) 2.26 10^3/uL (1.8-7.7) 06/30/21 04:53 Lymph # (Auto) 1.9 10^3/uL (0.8-4.8) 06/30/21 04:53 [place] # (Auto) 0.4 10^3/uL (0.2-0.9) 06/30/21 04:53 Eos # (Auto) 0.2 10^3/uL (0.0-0.8) 06/30/21 04:53 Baso # (Auto) 0.1 10^3/uL (0.0-0.1) 06/30/21 04:53 Nucleated RBC % (auto) 0 % 06/30/21 04:53 Nucleated RBCs # 0.0 /100WBC 06/30/21 04:53 Sodium 136 mmol/L (136-145) 06/30/21 04:53 Potassium 3.6 mmol/L (3.5-5.1) 06/30/21 04:53 Chloride 105 mmol/L (98-107) 06/30/21 04:53 Carbon Dioxide 20 mmol/L (22-29) L 06/30/21 04:53 Anion Gap 14.6 (5-19) 06/30/21 04:53 BUN 24 mg/dL (6-20) H 06/30/21 04:53 Creatinine 0.9 mg/dL (0.7-1.2) 06/30/21 04:53 GFR Calculation 87.9 mL/min (90-130) L 06/30/21 04:53 Glucose 94 mg/dL (65-115) 06/30/21 04:53 Calculated Osmolality 286 mOsm/kg (285-295) 06/30/21 04:53 Lactate 1.9 mmol/L (0.5-2.2) 06/28/21 14:16 Calcium 9.4 mg/dL (8.5-10.5) 06/30/21 04:53 Phosphorus 3.7 mg/dL (2.5-4.5) 06/29/21 03:40 Magnesium 1.4 mg/dL (1.7-2.3) L 06/29/21 03:40 Total Bilirubin 0.4 mg/dL (0.15-1.2) 06/30/21 04:53 AST 40 U/L (0-40) 06/30/21 04:53 ALT 27 U/L (0-41) 06/30/21 04:53 Alkaline Phosphatase 73 IU/L (40-130) 06/30/21 04:53 Troponin T Baseline 52 ng/L (0-15) H 06/28/21 14:16 Troponin T 120 Minute 38.05 ng/L (0-15) H 06/28/21 16:27 Delta Troponin T -13.95 ABS# (0-10) L 06/28/21 16:27 Troponin T Hi Sens 6Hr 36.26 ng/L (0-15) H 06/28/21 20:23 Troponin T Hi Sens 6Hr Delta -15.74 ng/L (0-12) L 06/28/21 20:23 Total Protein 6.1 g/dL (6.6-8.7) L 06/30/21 04:53 Albumin 3.6 g/dL (3.5-5.2) 06/30/21 04:53 Globulin 2.5 g/dL (1.3-4.6) 06/30/21 04:53 Lipase 76 U/L (13-60) H 06/28/21 14:16 Urine Color Dark yellow (Yellow) 06/28/21 15:38 Urine Appearance Sl hazy (CLEAR) 06/28/21 15:38 Urine pH 5 (5-7) 06/28/21 15:38 Ur Specific [place] 1.010 (1.005-1.030) 06/28/21 15:38 Urine Protein 1+ (Negative) H 06/28/21 15:38 Urine Glucose (UA) Norm (Normal) 06/28/21 15:38 Urine Ketones Negative (Negative) 06/28/21 15:38 Urine Blood 3+ (Negative) H 06/28/21 15:38 Urine Nitrate Negative (Negative) 06/28/21 15:38 Urine Bilirubin 1+ (Negative) H 06/28/21 15:38 Urine Urobilinogen Norm mg/dL (Negative) 06/28/21 15:38 Ur Leukocyte Esterase Trace (Negative) H 06/28/21 15:38 Urine RBC 5-10 /hpf (0-2) H 06/28/21 15:38 Urine WBC 15-25 /hpf (0-5) H 06/28/21 15:38 Ur Squamous Epith Cells 5-10 /hpf (0-5) H 06/28/21 15:38 Amorphous Sediment Not Reportable 06/28/21 15:38 Urine Bacteria 2+ /hpf (NONE) H 06/28/21 15:38 Hyaline Casts 10-15 /lpf H 06/28/21 15:38 Ur Random Sodium 64 mmol/L 06/28/21 18:02 Urine Creatinine 99 mg/dL (39-259) 06/28/21 18:02 Hepatitis A IgM Ab Non-reactive (Nonreactive) 06/28/21 14:16 Hep Bs Antigen Non-reactive (Nonreactive) 06/28/21 14:16 Hep B Core IgM Ab Non-reactive (Nonreactive) 06/28/21 14:16 Hepatitis C Antibody Non-reactive (Nonreactive) 06/28/21 14:16 HIV 1&2 Ab & HIV 1 Ag Non-reactive (Non-Reactiv) 06/28/21 14:16 HIV 1&2 Antibody Non-reactive (Non-Reactiv) 06/28/21 14:16 SARS-CoV-2 Ag (Rapid) Negative (Negative) 06/28/21 14:40 Vitals Last Vital Signs Temp 98.1 F 06/30/21 07:37 Pulse 75 06/30/21 07:37 Resp 18 06/30/21 07:37 BP 152/82 06/30/21 07:37 Pulse Ox 98 06/30/21 07:37 Discharge Plan Discharge Patient Disposition: Home Condition: Stable Prescriptions: Continued allopurinol 100 mg tablet 100 mg PO DAILY PRN (Reason: gout) 0RF lisinopril 10 mg Tablet 10 mg PO DAILY Qty: 30 0RF folic acid 1 mg Tablet 1 mg PO DAILY Qty: 90 0RF thiamine mononitrate (vit B1) [Vitamin B-1 (mononitrate)] 100 mg Tablet 100 mg PO DAILY Qty: 90 0RF multivitamin with folic acid [Thera] 400 mcg Tablet 1 tab PO DAILY Qty: 90 0RF prednisone 10 mg Tablet 10 mg PO DAILY PRN (Reason: Allergic Reaction) 0RF Discharge Orders: Discharge Order (Routine); Ordered 06/30/21 Ordered By: Anton Serrano Referrals: Demetrius Denise DO [Primary Care Provider] - (CLINIC WILL CALL WITH APPOINTMENT) Discharge Diet: Cardiac Discharge Activity: Resume usual activity Patient Instructions: Dehydration (GEN), Acute Diarrhea (GEN), Opioid Safety Discharge Attestations Time Spent in Discharge Care*: less than 30 min Quality Metrics Clinical Quality Measures [ No reported AMI, CVA or VTE this stay] Coding Level of Care Code Acute Chg FW DC note Exam Detailed Diagnoses Dehydration E86.0 BRIANA (acute kidney injury) N17.9 Alcoholism, chronic F10.20 Diarrhea R19.7
[2021-06-30] MEDS: iohexol 300 mg/mL 100 mL Btl IV (10:49)
--- NOTE | 2021-06-30 14:41 | US_ITS ---
WS: [id number] RIGHT UPPER QUADRANT ULTRASOUND HISTORY: alcoholism, low platelets. COMPARISON: 06/28/2021 Liver: 15.0 cm in length. Normal size liver. Seen on one image only which is a transverse image throu gh the LEFT lobe of the liver is some bulge of the contour of the capsule. Very slight change in the echotexture of the liver. Portal Vein: Normal hepatopetal flow with monophasic waveform. Gallbladder: Normally distended gallbladder with no stones or wall thickening. CBD: 0.3 cm Pancreas: Obscured by bowel gas. Right kidney: 10.2 cm in length. Normal size and echogenicity. No hydronephrosis or mass. Aorta and IVC: Unremarkable abdominal aorta and IVC. No ascites. US/US liver [id number] IMPRESSION: 1. No cholelithiasis. 2. Seen only on one image is a mild bulge of the contour of the LEFT hepatic l obe with mild change in echotexture of the liver. Recommend follow-up CT with I V and oral contrast to evaluate for subtle hepatic lesion. 3. Pancreas not visualized by ultrasound.
== END 2021-06-30 14:13 | disposition home or self-care (01) | DRG 641 ==
LOC: ER 17:51 → MEDSURG 17:55
PROVIDERS: Admitting Provider Internal Medicine; Emergency Provider Family Medicine; PCP Family Medicine; Visit Provider Family Medicine
DX: E86.0 Dehydration (principal); N17.9 Acute kidney failure, unspecified; N39.0 Urinary tract infection, site not specified; E86.1 Hypovolemia; I95.9 Hypotension, unspecified; R19.7 Diarrhea, unspecified; F17.210 Nicotine dependence, cigarettes, uncomplicated; F10.20 Alcohol dependence, uncomplicated; M10.9 Gout, unspecified; I10 Essential (primary) hypertension; Z86.73 Personal history of transient ischemic attack (TIA), and cerebral infarction without residual deficits
CPT/HCPCS: 36415; 71045; 74177; 76705; 76770; 80053; 80074; 81001; 82274; 82570; 83605; 83630; 83690; 83735; 84100; 84300; 84484; 85025; 87040; 87086; 87426; 87493; 87506; 87806; 93005; 96361; 96365; 96372; 99285; J0696; J1644; J3475; J7030; J7120; Q9967

== ENCOUNTER 2023-06-16 23:02 | Emergency (ER) | payer BC, MEDICAID, SELFPAY ==
[2023-06-16 23:06] VITALS: BP 156/92; PULSE 84; RESP 16; TEMP 36.9; O2SAT 97
--- NOTE | 2023-06-16 23:14 | ED_ITS ---
HPI - Nausea/Vomiting/Diarrhea 2 General: Chief complaint: Nausea/Vomiting/Diarrhea Stated complaint: nausea, throat all over pain Time Seen by Provider: 06/16/23 23:10 History of Present Illness: 58-year-old male patient comes in today with nausea and vomiting x 2 days. Patient denies any blood in the stool or vomit. Patient reports some chills. Review of the medical record noted that patient had 2 previous episodes 1 in and another in where patient was ill for 2 or 3 days and was found to be in BRIANA. Patient does endorse alcohol drinking with his last drink being on Tuesday. Patient's daughter endorses that patient is an alcoholic. Patient is a tobacco user. Patient's had a history of a CVA. Patient takes medications for blood pressure. Associated nausea: Yes Associated symtoms: Reports nausea Review of Systems 2 General: Reports: 10 or more systems reviewed and unremarkable except in HPI and below GI: Reports: nausea and vomiting PFSH ED 2 PFSH: Medical History Abnormal brain MRI Abnormal CT of brain Depression No pertinent past medical history Surgical History No pertinent past surgical history Family History Other CAD (coronary artery disease) Social History Smoking and tobacco/nicotine status: current every day tobacco/nicotine user cigarettes [ Other cigarette details: 1 pack/day for 30 years] Alcohol intake: current Substance/Drug Use: never Household members: family Housing: House Physical Exam 2 Const: COMMON NORMALS: alert HENMT: COMMON NORMALS: normocephalic HEAD & SCALP: normocephalic MOUTH: Normal oral and palatal mucosa present Neck/C-Spine: COMMON NORMALS: full ROM CERVICAL SPINE: Yes cervical ROM normal Resp: COMMON NORMALS: normal respiratory effort and clear to auscultation bilaterally AUSCULTATION: clear to auscultation bilaterally Cardio: COMMON NORMALS: regular rate and regular rhythm RATE: regular rate RHYTHM: regular rhythm GI: COMMON NORMALS: Soft to palpation AUSCULTATION: Yes normoactive bowel sounds PALPATION: Yes Soft to palpation and No Tenderness to palpation present (GI) Back/Pelvis: COMMON NORMALS: thoracic and lumbar spine normal to inspection Extremity: COMMON NORMALS: normal to inspection Neuro: SENSORIUM/ORIENTATION: Yes alert Skin: COMMON NORMALS: turgor normal GENERAL SKIN EXAM: turgor normal Course 2 Vital Signs: Vital signs: Vital Signs Temperature 98.4 F 06/16/23 23:06 Pulse Rate 84 06/16/23 23:06 Respiratory Rate 16 06/16/23 23:06 Blood Pressure 156/92 06/16/23 23:06 Pulse Oximetry 97 06/16/23 23:06 Oxygen Delivery Me thod Room Air 06/16/23 23:06 MDM - Nausea/Vomiting/Diarrhea Medical Decision Making 58-year-old male patient comes in today with nausea and vomiting x 2 days. Patient appears nontoxic. Patient reports just unable to hold any fluids down. Patient does have a history of prior events with BRIANA. On exam skin is warm and dry color is pink. Abdomen soft nontender. Vital signs are normal except for some mild elevation of blood pressure at 156 systolic. Differential diagnosis includes but not limited to dehydration, BRIANA, pancreatitis, alcoholism. Patient's white count was slightly elevated at 16,000 and believe this is probably more likely due to the retching and vomiting, and dehydration. CMP noted a creatinine of 1.2, sodium 134, potassium 2.9, and glucose of 124. Patient was infused with 2 L of IV fluid and was able to urinate and hold down fluids. Patient was given 40 mill equivalents of liquid potassium and recommended to continue on liquids diet until he could tolerate full liquid diet until he can tolerate bland diet. Patient and family both reported understanding and agreed to plan. Lab Data 06/16/23 23:25 06/16/23 23:25 Laboratory Results WBC 16.02 10^3/uL (3.29-11.43) H 06/16/23 23:25 RBC 4.01 10^6/uL (3.85-5.65) 06/16/23 23:25 Hgb 14.10 g/dL (11.27-16.99) 06/16/23 23:25 Hct 37.6 % (37-53) 06/16/23 23:25 MCV 93.8 fl (82-101) 06/16/23 23:25 MCH 35.2 pg (27-33) H 06/16/23 23:25 MCHC 37.5 g/dL (30-55) 06/16/23 23:25 RDW 11.6 % (12.1-15.1) L 06/16/23 23:25 Plt Count 201 10^3/cmm (157-399) 06/16/23 23:25 MPV 11.3 fL (7.4-10.4) H 06/16/23 23:25 Neut % (Auto) 75.7 % 06/16/23 23:25 Lymph % (Auto) 15.6 % 06/16/23 23:25 [place] % (Auto) 7.7 % 06/16/23 23:25 Eos % (Auto) 0.1 % 06/16/23 23:25 Baso % (Auto) 0.2 % 06/16/23 23:25 Neut # (Auto) 12.11 10^3/uL (1.8-7.7) H 06/16/23 23:25 Lymph # (Auto) 2.5 10^3/uL (0.8-4.8) 06/16/23 23:25 [place] # (Auto) 1.2 10^3/uL (0.2-0.9) H 06/16/23 23:25 Eos # (Auto) 0.0 10^3/uL (0.0-0.8) 06/16/23 23:25 Baso # (Auto) 0.0 10^3/uL (0.0-0.1) 06/16/23 23:25 Nucleated RBC % (auto) 0 % 06/16/23 23: Nucleated RBCs # 0.0 /100WBC 06/16/23 23:25 Sodium 134 mmol/L (136-145) L 06/16/23 23:25 Potassium 2.9 mmol/L (3.5-5.1) L 06/16/23 23:25 Chloride 91 mmol/L (98-107) L 06/16/23 23:25 Carbon Dioxide 26 mmol/L (22-29) 06/16/23 23:25 Anion Gap 19.9 (5-19) H 06/16/23 23:25 BUN 31 mg/dL (6-20) H 06/16/23 23:25 Creatinine 1.2 mg/dL (0.7-1.2) 06/16/23 23:25 GFR Calculation 62.6 mL/min (90-130) L 06/16/23 23:25 Glucose 124 mg/dL (65-115) H 06/16/23 23:25 Calculated Osmolality 286 mOsm/kg (285-295) 06/16/23 23:25 Calcium 8.8 mg/dL (8.5-10.5) 06/16/23 23:25 Total Bilirubin 2.4 mg/dL (0.15-1.2) H 06/16/23 23:25 AST 30 U/L (0-40) 06/16/23 23:25 ALT 15 U/L (0-41) 06/16/23 23:25 Alkaline Phosphatase 80 U/L (40-130) 06/16/23 23:25 Total Protein 7.9 g/dL (6.6-8.7) 06/16/23 23:25 Albumin 4.5 g/dL (3.5-5.2) 06/16/23 23:25 Globulin 3.4 g/dL (1.3-4.6) 06/16/23 23:25 Lipase 100 U/L (13-60) H 06/16/23 23:25 Influenza Type A Ag negative (Negative) 06/16/23 23:25 Influenza Type B Ag negative (Negative) 06/16/23 23:25 SARS-CoV-2 Ag (Rapid) negative (Negative) 06/16/23 23:25 No radiology studies performed this visit Discharge Plan Discharge Patient Disposition: Home Clinical Impression: Acute dehydration Condition: Stable Prescriptions: New ondansetron 4 mg tablet,disintegrating 4 mg PO Q8H PRN (Reason: nausea and vomiting) 3 Days Qty: 10 0RF No Action allopurinol 100 mg tablet 100 mg PO DAILY PRN (Reason: gout) lisinopril 10 mg Tablet 10 mg PO DAILY Qty: 30 0RF folic acid 1 mg Tablet 1 mg PO DAILY Qty: 90 0RF thiamine mononitrate (vit B1) [Vitamin B-1 (mononitrate)] 100 mg Tablet 100 mg PO DAILY Qty: 90 0RF multivitamin with folic acid [Thera] 400 mcg Tablet 1 tab PO DAILY Qty: 90 0RF prednisone 10 mg Tablet 10 mg PO DAILY PRN (Reason: Allergic Reaction) Discharge Orders: Discharge ED (Routine); Ordered 06/17/23 Ordered By: Lewis Jean Referrals: Demetrius Denise DO [Primary Care Provider] - Discharge Diet: Advance as tolerated Discharge Activity: Increase activity as tolerated Patient Instructions: Dehydration (ED) Activity Restrictions/Additional Instructions: Drink frequent sips of water and electrolyte solution to maintain hydration. Increase diet then to full liquids and to a bland diet over the next 24-72 hours. Follow-up with primary care. Return to ED for worsening symptoms such as high fever greater than 100.4, severe abdominal pain, blood in vomit or stool. Coding Level of Care Code ED Supervisor Special Services for [facility]
[2023-06-16] MEDS: ondansetron 2 mg/ML SDV 2 mL 4 MG IVP (23:21)
[2023-06-16] MEDS: sodium chloride 0.9% 1,000 ML 999 ML IV (23:21)
[2023-06-16] MEDS: lactated ringers 1,000 ML 999 ML IV (23:44)
[2023-06-16 23:51] LABS: Basophils % 0.2 %; Eosinophils % 0.1 %; Hematocrit 37.6 % (37-53); Lymphocytes # 2.5 10^3/uL (0.8-4.8); Lymphocytes % 15.6 %; Mean Corpuscular HGB Conc 37.5 g/dL (30-55); Mean Corpuscular Hemoglobin 35.2 pg (27-33); Mean Corpuscular Volume 93.8 fl (82-101); Mean Platelet Volume 11.3 fL (7.4-10.4); Monocytes # 1.2 10^3/uL (0.2-0.9); Monocytes % 7.7 %; Neutrophils # 12.11 10^3/uL (1.8-7.7); Neutrophils % 75.7 %; Nucleated Red Blood Cells % 0 %; Platelet Count 201 10^3/cmm (157-399); Red Blood Count 4.01 10^6/uL (3.85-5.65); Red Cell Distribution Width 11.6 % (12.1-15.1); White Blood Count 16.02 10^3/uL (3.29-11.43)
[2023-06-16 23:58] LABS: Alanine Aminotransferase 15 U/L (0-41); Albumin Level 4.5 g/dL (3.5-5.2); Alkaline Phosphatase 80 U/L (40-130); Anion Gap 19.9 (5-19); Aspartate Amino Transferase 30 U/L (0-40); Blood Urea Nitrogen 31 mg/dL (6-20); Calcium 8.8 mg/dL (8.5-10.5); Carbon Dioxide 26 mmol/L (22-29); Chloride 91 mmol/L (98-107); Globulin 3.4 g/dL (1.3-4.6); Glomerular Filtration Rate 62.6 mL/min (90-130); Glucose 124 mg/dL (65-115); Lipase 100 U/L (13-60); Osmolality Calculated 286 mOsm/kg (285-295); Sodium 134 mmol/L (136-145); Total Bilirubin 2.4 mg/dL (0.15-1.2); Total Protein 7.9 g/dL (6.6-8.7)
[2023-06-16 23:59] LABS: Influenza A by IFA negative (Negative); Influenza B by IFA negative (Negative); SARS Covid-2 Antigen negative (Negative)
[2023-06-17 00:01] LABS: Potassium 2.9 mmol/L (3.5-5.1)
[2023-06-17 00:32] LABS: Add Urine Microscopic? YES; Bilirubin Urine Neg (Negative); Blood Urine 2+ (Negative); Glucose Urine UA Norm (Normal); Ketones Urine Negative (Negative); Leukocyte Esterase Urine Negative (Negative); Nitrate Urine Negative (Negative); Protein Urine 1+ (Negative); Sulfosalicylic Acid Urine Positive (Negative); Urine Appearance Clear (CLEAR); Urine Color Yellow (Yellow); Urobilinogen Urine 1 mg/dL (Negative); pH Urine 8 (5-7)
[2023-06-17 00:33] LABS: Add Urine Culture? No; Bacteria Urine TRACE /hpf; Squamous Epithelial Cell Urine 0-4 /hpf (0-5)
--- NOTE | 2023-06-17 01:49 | PC.NURSE ---
This nurse went in to administer IV potassium and fluids to run over 4 hours. Patient stated that he did not want to stay for another 4 hours, and instead wanted to leave. Patient was educated of the importance of receiving potassium and informed of potassium level; patient still declined taking potassium once again. Dr Rueda, who assumed care from JOANNA Jean, was notified of patient's refusal of med.
== END 2023-06-17 01:58 | disposition home or self-care (01) ==
PROVIDERS: Emergency Provider Nurse Practitioner Family; PCP Family Medicine
DX: E86.0 Dehydration (principal); Z11.52 Encounter for screening for COVID-19; F17.210 Nicotine dependence, cigarettes, uncomplicated
CPT/HCPCS: 80053; 81001; 83690; 85025; 87426; 87804; 96361; 96374; 99284; J2405; J7030; J7120

== ENCOUNTER 2025-04-07 10:26 | Emergency (ER) | payer BC, MEDICAID, SELFPAY ==
--- OUTSIDE RECORDS SUMMARY | 2025-04-07 10:30 | XMS_ITS | Encounter Summary ---
Author Organization [facility] Address [address] [place] [address] Care Team Providers Care Latrine Cleaner Name Role Phone Jon Denise MD Primary Care Provider [phone] Encounter Details Date Type Department Care Team (Latest Contact Info) Description 09/26/2003 Outpatient Historical [address] [address] Stacey Kennedy MD [address] [place] [address], [id number] HYPERTENSION NOS (Primary Dx); GASTRITIS/DUODEN NOS W/O HEMORRH; ADV EFFECT MED/BIOL SUB NOS Social History Tobacco Use Types Packs/Day Years Used Date Smoking Tobacco: Never Assessed Sex and Gender Information Value Date Recorded Sex Assigned at Not on file 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 Gender Identity Not on file Sexual Orientation Not on file documented as of this encounter Plan of Treatment Not on file documented as of this encounter Visit Diagnoses Diagnosis Unspecified essential hypertension- Primary Unspecified gastritis and gastroduodenitis without mention of hemorrhage Other and unspecified adverse effect of drug, medicinal and biological substance documented in this encounter Additional Health Concerns Infection Onset Date Last Indicated Resolved Time R/O COVID-19 01/15/2020 01/15/2020 01/17/2020 1:00 AM CDT R/O COVID-19 05/12/2020 05/12/2020 05/14/2020 12:3 2 AM MECHANICAL HANDYMAN COVID-19 05/12/2020 05/12/2020 06/11/2020 8:11 PM MECHANICAL HANDYMAN documented as of this encounter Care Teams Latrine Cleaner Relationship Specialty Start Date End Date Jon Denise MD [address] [place] [address] PCP - General Family Practice 02/20/16 documented as of this encounter
--- OUTSIDE RECORDS SUMMARY | 2025-04-07 10:30 | XMS_ITS | Clinical Summary ---
Author Organization [facility] Address [address] [place] [address] Care Team Providers Care Manager Personal Name Role Phone Demetrius Denise DO Primary Care Provider [phone] Allergies Active Allergy Reactions Criticality Noted Date Comments Penicillins Unknown 03/18/2008 Medications multivitamin,jet cium,minerals,ir on,folic acid (THERA-M,THERA-M PLUS) 9 mg iron-400 mcg Tablet Take 1 Tablet by mouth daily. 1 Active enalapril (VASOTEC) 10 mg tabletIndication s:Primary hypertension Take 1 Tablet (10 mg) by mouth daily. 100 Tablet 3 3 Active varenicline (CHANTIX) 1 mg TabletIndication s:Cigarette nicotine dependence without complication TAKE 1 TABLET (1 MG) BY MOUTH 2 TIMES DAILY. 60 Tablet 11 4 Active naproxen (NAPROSYN) 500 mg tabletIndication s:Left elbow pain,Olecranon bursitis of left elbow Take 1 Tablet (500 mg) by mouth 2 times daily with meals. 60 Tablet 1 4 Active ondansetron (ZOFRAN ODT) 8 mg Tablet, Rapid DissolveIndicati ons:Nausea and vomiting, unspecified vomiting type Dissolve 1 tablet on top of tongue then swallow with saliva every 8 hours as needed for nausea or vomiting 21 Tablet 4 Active Additional Information Patient not taking.Reported on 09/08/2023 promethazine (PHENERGAN) 25 mg tabletIndication s:Nausea Take 1 Tablet (25 mg) by mouth every 6 hours as needed for Nausea/Emesis. 15 Tablet 4 Active Additional Information Patient not taking.Reported on 09/16/2023 meclizine (ANTIVERT) 25 mg tabletIndication s:Vertigo Take 1 Tablet (25 mg) by mouth 3 times daily as needed for Dizziness. 90 Tablet 3 4 Active allopurinoL (ZYLOPRIM) 100 mg tabletIndication s:Hyperuricemia Take 1 Tablet (100 mg) by mouth daily. 90 Tablet 3 4 Active Active Problems Problem Noted Date Diagnosed Date Primary hypertension 03/24/2022 Mixed hyperlipidemia 08/18/2020 Acute gout due to renal impairment involving lef t foot 08/18/2020 Hyperuricemia 08/18/2020 Bronchitis, not specified as acute or chronic Hypertensive kidney disease with stage 3b chronic kidney disease 05/25/2011 Shoulder pain 06/04/2010 Resolved Problems Problem Noted Date Diagnosed Date Resolved Date Cigarette dependence 02/20/2016 020 Immunizations Immunization Administration Dates Next Due (SPIKEVAX) (12 YRS UP PRIMAR Y SERIES) COVID-19 VACCINE - MRNA-1273(PF) 100 MCG/0.5 ML IM SUSP 11/28/2020,10/31/2020 Influenza Seasonal Unspecified Formulation IM PNEUMOVAX (PPSV23) pneumococ jet polysaccharide 23-valent Vaccine 04/23/2020 Family History Medical History Relation Name Comments Heart Attack Father Heart Disease Father Heart Attack Maternal Grandfather Heart Attack Maternal Grandmother Heart Attack Mother Heart Disease Mother Heart Attack Paternal Grandfather Heart Attack Paternal Grandmother Relation Name Status Comments Father Maternal Grandfather Maternal Grandmother Mother Paternal Grandfather Paternal Grandmother Social History Tobacco Use Types Packs/Day Years Used Date Smoking Tobacco: Former Cigarettes Passive Smoke Exposure: Past Smokeless Tobacco: Never Tobacco Cessation:Counseling Given: Not Answered Alcohol Use Standard Drinks/Week Comments Yes 0 (1 standard drink = 0.6 oz pur e alcohol) rarely Sex and Gender Information Value Date Recorded Sex Assigned at Not on file 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 Gender Identity Not on file Sexual Orientation Not on file Last Filed Vital Signs Vital Sign Reading Time Taken Comments Blood Pressure 97/63 11/22/2023 10:05 AM CDT Pulse 91 11/22/2023 10:05 AM CDT Temperature 36.4 C (97.6 F) 11/22/2023 10:05 AM CDT Respiratory Rate 18 11/22/2023 10:05 AM CDT Oxygen Saturation 98% 11/22/2023 10:05 AM CDT Inhaled Oxygen Concentration - - Weight 60.9 kg (134 lb 3.2 oz) 11/22/2023 10:05 AM CDT Height 172.7 cm (5' 8 ) 11/22/2023 10:05 AM CDT Body Mass Index 20.41 11/22/2023 10:05 AM CDT Plan of Treatment Health Maintenance Due Date Last Done Comments DTAP/TDAP/TD VACCINES (1 - Tdap) 1986 HEPATITIS B VACCINES (1 of 3 - 19+ 3-dose series) 1986 COLORECTAL SCREENING 2012 Colorectal Cancer Screening 2012 FIT-DNA Q 3 years 2012 FIT/FOBT Q 1 year 2012 Flex Sig/CT Colonography Q 5 years 2012 ZOSTER VACCINE (1 of 2) 2017 Preventative Visit-Managed Medicaid 03/25/202303/24 INFLUENZA VACCINE (#1) 2024 03/24/2022, 2019 COVID-19 Vaccine ( season) 2025, 10/31/2020 Insurance [facility] MEDICAID Care Teams Manager Personal Relationship Specialty Start Date End Date Demetrius Denise DO [address] [place] [address] PCP - General Family Practice 09/13/22
--- OUTSIDE RECORDS SUMMARY | 2025-04-07 10:30 | XMS_ITS | Encounter Summary ---
Author Organization [facility] Address [address] [place] [address] Care Team Providers Care Well Driller Name Role Phone Jon Denise MD Primary Care Provider [phone] Encounter Details Date Type Department Care Team (Latest Contact Info) Description 12/07/2002 Outpatient Historical [address] [phone] Stacey Kennedy MD [address] [place] [address], [id number] NAUSEA WITH VOMITING (Primary Dx); DIARRHEA NOS; HYPERTENSION NOS; HYPOVOLEMIA Social History Tobacco Use Types Packs/Day Years Used Date Smoking Tobacco: Never Assessed Sex and Gender Information Value Date Recorded Sex Assigned at Not on file Legal Sex Male 5:07 AM EUCLID OPERATOR Gender Identity Not on file Sexual Orientation Not on file documented as of this encounter Plan of Treatment Not on file documented as of this encounter Visit Diagnoses Diagnosis Nausea with vomiting- Primary Diarrhea Unspecified essential hypertension Volume depletion documented in this encounter Additional Health Concerns Infection Onset Date Last Indicated Resolved Time R/O COVID-19 01/15/2020 01/15/2020 01/17/2020 1:00 AM CDT R/O COVID-19 05/12/2020 05/12/2020 05/14/2020 12:3 2 AM EUCLID OPERATOR COVID-19 05/12/2020 05/12/2020 06/11/2020 8:11 PM EUCLID OPERATOR documented as of this encounter Care Teams Well Driller Relationship Specialty Start Date End Date Jon Denise MD [address] [place] [address] PCP - General Family Practice 02/20/16 documented as of this encounter
--- OUTSIDE RECORDS SUMMARY | 2025-04-07 10:30 | XMS_ITS | Encounter Summary ---
Author Organization [facility] Address [address] [place] [address] Care Team Providers Care Architectural Examiner Name Role Phone Jon Denise MD Primary Care Provider [phone] Encounter Details Date Type Department Care Team (Late st Contact Info) Description 07/17/2010 Ancillary Orders [facility] [address] [place] [address] Noé Zamora MD NO ADDRESS ON FILE Shoulder pain Social History Tobacco Use Types Packs/Day Years Used Date Smoking Tobacco: Every Day Cigarettes Alcohol Use Standard Drinks/Week Comments Yes 0 (1 standard drink = 0.6 oz pur e alcohol) Sex and Gender Information Value Date Recorded Sex Assigned at Not on file Legal Sex Male 5:07 AM GLASS PRODUCTION MACHINE OPERATOR Gender Identity Not on file Sexual Orientation Not on file documented as of this encounter Plan of Treatment Not on file documented as of this encounter Visit Diagnoses Diagnosis Shoulder pain Pain in joint, shoulder region documented in this encounter Additional Health Concerns Infection Onset Date Last Indicated Resolved Time R/O COVID-19 01/15/2020 01/15/2020 01/17/2020 1:00 AM CDT R/O COVID-19 05/12/2020 05/12/2020 05/14/2020 12:3 2 AM GLASS PRODUCTION MACHINE OPERATOR COVID-19 05/12/2020 05/12/2020 06/11/2020 8:11 PM GLASS PRODUCTION MACHINE OPERATOR documented as of this encounter Care Teams Architectural Examiner Relationship Specialty Start Date End Date Jon Denise MD [address], [place] [phone] PCP - General Family Practice 02/20/16 documented as of this encounter
--- OUTSIDE RECORDS SUMMARY | 2025-04-07 10:30 | XMS_ITS | Encounter Summary ---
Author Organization [facility] Address [address] [place] [address] Care Team Providers Care Service Worker Helper Name Role Phone Jon Denise MD Primary Care Provider [phone] Encounter Details Date Type Department Care Team (Latest Contact Info) Description 01/19/2007 Outpatient Historical [facility] [address] [phone] Asad Torrez, PAPER PRODUCTS MACHINE OPERATOR [address] [place] [address] Unspecified Essential Hypertension (Primary Dx) Social History Tobacco Use Types Packs/Day Years Used Date Smoking Tobacco: Never Assessed Sex and Gender Information Value Date Recorded Sex Assigned at Not on file Legal Sex Male 5:07 AM BENCH SCIENTIST Gender Identity Not on file Sexual Orientation Not on file documented as of this encounter Plan of Treatment Not on file documented as of this encounter Visit Diagnoses Diagnosis Unspecified essential hypertension- Primary documented in this encounter Additional Health Concerns Infection Onset Date Last Indicated Resolved Time R/O COVID-19 01/15/2020 01/15/2020 01/17/2020 1:00 AM CDT R/O COVID-19 05/12/2020 05/12/2020 05/14/2020 12:3 2 AM BENCH SCIENTIST COVID-19 05/12/2020 05/12/2020 06/11/2020 8:11 PM BENCH SCIENTIST documented as of this encounter Care Teams Service Worker Helper Relationship Specialty Start Date End Date Jon Denise MD [address] [phone] PCP - General Family Practice 02/20/16 documented as of this encounter
--- OUTSIDE RECORDS SUMMARY | 2025-04-07 10:30 | XMS_ITS | Clinical Summary ---
Author Organization [facility] Address [address] [facility] [place] [address] Care Team Providers Care Retail Cashier Associate Name Role Phone Jon Denise MD Primary Care Provider [phone] Allergies Active Allergy Reactions Criticality Noted Date Comments Penicillins Unknown 03/18/2008 Medications cetirizine (ZyrTEC) 10 mg tablet Take 10 mg by mouth daily. Active omeprazole (PriLOSEC) 20 mg Capsule, Delayed Release(E.C.) Take 20 mg by mouth daily. Active ALPRAZolam (Xanax) 0.25 mg tabletIndicatio ns:Anxiety state Take 1 Tablet (0.25 mg) by mouth nightly as needed for Anxiety. 14 Tablet 1 05/23/2020 Active lisinopriL (PRINIVIL) 20 mg tablet Take 1 Tablet (20 mg) by mouth daily. 30 Tablet 2 05/24/2020 Active allopurinoL (ZYLOPRIM) 100 mg tablet Take 1 Tablet (100 mg) by mouth daily. 90 Tablet 1 07/02/2020 Active predniSONE (DELTASONE) 10 mg tabletIndicatio ns:Acute gout due to renal impairment involving left foot 4 tabs daily for 3 days, then 3 tabs daily for 3 days, then 2 tabs daily for 3 days, then 1 tab daily for 3 days 30 Tablet 08/18/2020 Active Active Problems Problem Noted Date Diagnosed Date Acute gout due to renal impairment involving lef t foot 08/18/2020 Hyperuricemia 08/18/2020 Mixed hyperlipidemia 08/18/2020 Bronchitis, not specified as acute or chronic Hypertensive kidney disease with stage 3b chronic kidney disease 05/25/2011 Shoulder pain 06/04/2010 Resolved Problems Problem Noted Date Diagnosed Date Resolved Date Cigarette dependence 02/20/2016 020 Immunizations Immunization Administration Dates Next Due Influenza Seasonal Unspecified Formulation IM PNEUMOVAX (PPSV23) [...] Years Used Date Smoking Tobacco: Former Cigarettes 1 20 Smokeless Tobacco: Never Tobacco Cessation:Counseling Given: No Alcohol Use Standard Drinks/Week Comments Yes 0 (1 standard drink = 0.6 oz pur e alcohol) occas Sex and Gender Information Value Date Recorded Sex Assigned at Not on file Legal Sex Male 5:07 AM ELECTRICIAN SHIP Gender Identity Not on file Sexual Orientation Not on file Last Filed Vital Signs Vital Sign Reading Time Taken Comments Blood Pressure 102/54 05/23/2020 3:12 PM ELECTRICIAN SHIP Pulse 90 05/23/2020 3:12 PM ELECTRICIAN SHIP Temperature 36.7 C (98.1 F) 05/23/2020 3:12 PM ELECTRICIAN SHIP Respiratory Rate 18 05/23/2020 3:12 PM ELECTRICIAN SHIP Oxygen Saturation 99% 05/23/2020 3:12 PM ELECTRICIAN SHIP Inhaled Oxygen Concentration - - Weight 73 kg (161 lb) 01/15/2020 9:54 AM CDT Height 165.1 cm (5' 5 ) 05/23/2020 3:12 PM ELECTRICIAN SHIP Body Mass Index 26.79 01/15/2020 9:54 AM CDT Plan of Treatment Health Maintenance Due Date Last Done Comments DTAP/TDAP/TD VACCINES (1 - Tdap) 1986 HEPATITIS B VACCINES (1 of 3 - 19+ 3-dose series) 08/1985 COLORECTAL SCREENING 2012 Colorectal Cancer Screening 2012 FIT-DNA Q 3 years 2012 FIT/FOBT Q 1 year 2012 Flex Sig/CT Colonography Q 5 years 2012 ZOSTER VACCINE (1 of 2) 2017 INFLUENZA VACCINE (#1) 2024 04/23/2020 Insurance WORKERS COMP WORKERS [facility] Advance Directives For more information, please contact: [phone] * Full Code (Latest Code Status on File) Date Activated Date Inactivated Comments 08/17/2010 9:51 AM 08/18/2010 2:01 AM * Full Code Date Activated Date Inactivated Comments 08/17/2010 9:40 AM 08/17/2010 9:51 AM Care Teams Retail Cashier Associate Relationship Specialty Start Date End Date Jon Denise MD [address] [place] [address] PCP - General Family Practice 02/20/16
--- OUTSIDE RECORDS SUMMARY | 2025-04-07 10:30 | XMS_ITS | Encounter Summary ---
Author Organization [facility] Address [address] [place] [address] Care Team Providers Care Billing Clerk Name Role Phone Jon Denise MD Primary Care Provider [phone] Encounter Details Date Type Department Care Team (Latest Contact Info) Description 07/01/2004 Outpatient Historical [facility] Faisal Bautista-Javi [phone] [place] [address] Bhupendra Ibarra, DO [address] [place] [address] HYPERTENSION NOS (Primary Dx) Social History Tobacco Use Types Packs/Day Years Used Date Smoking Tobacco: Never Assessed Sex and Gender Information Value Date Recorded Sex Assigned at Not on file Legal Sex Male 5:07 AM DOG AND CAT FOOD COOK Gender Identity Not on file Sexual Orientation Not on file documented as of this encounter Plan of Treatment Not on file documented as of this encounter Visit Diagnoses Diagnosis Unspecified essential hypertension- Primary documented in this encounter Additional Health Concerns Infection Onset Date Last Indicated Resolved Time R/O COVID-19 01/15/2020 01/15/2020 01/17/2020 1:00 AM CDT R/O COVID-19 05/12/2020 05/12/2020 05/14/2020 12:3 2 AM DOG AND CAT FOOD COOK COVID-19 05/12/2020 05/12/2020 06/11/2020 8:11 PM DOG AND CAT FOOD COOK documented as of this encounter Care Teams Billing Clerk Relationship Specialty Start Date End Date Jon Denise MD [address] [place] [phone] PCP - General Family Practice 02/20/16 documented as of this encounter
--- OUTSIDE RECORDS SUMMARY | 2025-04-07 10:30 | XMS_ITS | Encounter Summary ---
Author Organization [facility] Address [address] [place] [address] Care Team Providers Care Website Admin Name Role Phone Jon Denise MD Primary Care Provider [phone] Encounter Details Date Type Department Care Team (Latest Contact Info) Description 05/31/2002 Outpatient Historical [facility] Chronic Pain [address] [place] [address] Lonny Gardner MD NO ADDRESS ON FILE CERVICALGIA (Primary Dx) Social History Tobacco Use Types Packs/Day Years Used Date Smoking Tobacco: Never Assessed Sex and Gender Information Value Date Recorded Sex Assigned at Not on file Legal Sex Male 5:07 AM CHIEF RADIOLOGY Gender Identity Not on file Sexual Orientation Not on file documented as of this encounter Plan of Treatment Not on file documented as of this encounter Visit Diagnoses Diagnosis Cervicalgia- Primary documented in this encounter Additional Health Concerns Infection Onset Date Last Indicated Resolved Time R/O COVID-19 01/15/2020 01/15/2020 01/17/2020 1:00 AM CDT R/O COVID-19 05/12/2020 05/12/2020 05/14/2020 12:3 2 AM CHIEF RADIOLOGY COVID-19 05/12/2020 05/12/2020 06/11/2020 8:11 PM CHIEF RADIOLOGY documented as of this encounter Care Teams Website Admin Relationship Specialty Start Date End Date Jon Denise MD [address] [place] [address] PCP - General Family Practice 02/20/16 documented as of this encounter
--- OUTSIDE RECORDS SUMMARY | 2025-04-07 10:30 | XMS_ITS | Encounter Summary ---
Author Organization [facility] Address [address] [place] [address] Care Team Providers Care Snow Groomer Name Role Phone Jon Denise MD Primary Care Provider [phone] Encounter Details Date Type Department Care Team (Late st Contact Info) Description 03/15/2003 Outpatient Historical [facility] Services [address] [place] [address] Osmel Helton MD [address] [place] [address] SCREENING FOR CONDITION NOS (Primary Dx) Social History Tobacco Use Types Packs/Day Years Used Date Smoking Tobacco: Never Assessed Sex and Gender Information Value Date Recorded Sex Assigned at Not on file Legal Sex Male 5:07 AM POWERHOUSE MECHANIC SUPERVISOR Gender Identity Not on file Sexual Orientation Not on file documented as of this encounter Plan of Treatment Not on file documented as of this encounter Visit Diagnoses Diagnosis Screening for unspecified condition- Primary documented in this encounter Additional Health Concerns Infection Onset Date Last Indicated Resolved Time R/O COVID-19 01/15/2020 01/15/2020 01/17/2020 1:00 AM CDT R/O COVID-19 05/12/2020 05/12/2020 05/14/2020 12:3 2 AM POWERHOUSE MECHANIC SUPERVISOR COVID-19 05/12/2020 05/12/2020 06/11/2020 8:11 PM POWERHOUSE MECHANIC SUPERVISOR documented as of this encounter Care Teams Snow Groomer Relationship Specialty Start Date End Date Jon Denise MD [address] [place] [phone] PCP - General Family Practice 02/20/16 documented as of this encounter
--- OUTSIDE RECORDS SUMMARY | 2025-04-07 10:30 | XMS_ITS | Encounter Summary ---
Author Organization [facility] Address [address] [place] [address] Care Team Providers Care Trestle Mechanic Name Role Phone Jon Denise MD Primary Care Provider [phone] Encounter Details Date Type Department Care Team (Late st Contact Info) Description 09/26/[address] [facility] Emergency Department [address] [place] [address] Reina Centeno MD [address] [place] [address] HYPERTENSION NOS (Primary Dx) Social History Tobacco Use Types Packs/Day Years Used Date Smoking Tobacco: Never Assessed Sex and Gender Information Value Date Recorded Sex Assigned at Not on file Legal Sex Male 5:07 AM MAINTENANCE TECH Gender Identity Not on file Sexual Orientation Not on file documented as of this encounter Plan of Treatment Not on file documented as of this encounter Visit Diagnoses Diagnosis Unspecified essential hypertension- Primary documented in this encounter Additional Health Concerns Infection Onset Date Last Indicated Resolved Time R/O COVID-19 01/15/2020 01/15/2020 01/17/2020 1:00 AM CDT R/O COVID-19 05/12/2020 05/12/2020 05/14/2020 12:3 2 AM MAINTENANCE TECH COVID-19 05/12/2020 05/12/2020 06/11/2020 8:11 PM MAINTENANCE TECH documented as of this encounter Care Teams Trestle Mechanic Relationship Specialty Start Date End Date Jon Denise MD [address] [place] [phone] PCP - General Family Practice 02/20/16 documented as of this encounter
--- OUTSIDE RECORDS SUMMARY | 2025-04-07 10:30 | XMS_ITS | Encounter Summary ---
Author Organization [facility] Address [address] [place] [address] Care Team Providers Care Newswriter Name Role Phone Jon Denise MD Primary Care Provider [phone] Encounter Details Date Type Department Care Team (Latest Contact Info) Description 06/15/2002 Outpatient Historical [facility] [address] [place] [address] Lonny Gardner MD NO ADDRESS ON FILE CERVICALGIA (Primary Dx) Social History Tobacco Use Types Packs/Day Years Used Date Smoking Tobacco: Never Assessed Sex and Gender Information Value Date Recorded Sex Assigned at Not on file Legal Sex Male 5:07 AM COLORER MACHINE Gender Identity Not on file Sexual Orientation Not on file documented as of this encounter Plan of Treatment Not on file documented as of this encounter Visit Diagnoses Diagnosis Cervicalgia- Primary documented in this encounter Additional Health Concerns Infection Onset Date Last Indicated Resolved Time R/O COVID-19 01/15/2020 01/15/2020 01/17/2020 1:00 AM CDT R/O COVID-19 05/12/2020 05/12/2020 05/14/2020 12:3 2 AM COLORER MACHINE COVID-19 05/12/2020 05/12/2020 06/11/2020 8:11 PM COLORER MACHINE documented as of this encounter Care Teams Newswriter Relationship Specialty Start Date End Date Jon Denise MD [address] [place] [address] PCP - General Family Practice 02/20/16 documented as of this encounter
--- OUTSIDE RECORDS SUMMARY | 2025-04-07 10:30 | XMS_ITS | Encounter Summary ---
Author Organization [facility] Address [address] [place] [address] Care Team Providers Care Ict Sales Representative Name Role Phone Jon Denise MD Primary Care Provider [phone] Encounter Details Date Type Department Care Team (Late st Contact Info) Description 02/28/2003 Outpatient Historical [facility] [address] [address] Stacey Kennedy MD [address], [address] Social History Tobacco Use Types Packs/Day Years Used Date Smoking Tobacco: Never Assessed Sex and Gender Information Value Date Recorded Sex Assigned at Not on file Legal Sex Male 5:07 AM NEUROLOGY DIRECTOR Gender Identity Not on file Sexual Orientation Not on file documented as of this encounter Plan of Treatment Not on file documented as of this encounter Visit Diagnoses Not on filedocumented in this encounter Additional Health Concerns Infection Onset Date Last Indicated Resolved Time R/O COVID-19 01/15/2020 01/15/2020 01/17/2020 1:00 AM CDT R/O COVID-19 05/12/2020 05/12/2020 05/14/2020 12:3 2 AM NEUROLOGY DIRECTOR COVID-19 05/12/2020 05/12/2020 06/11/2020 8:11 PM NEUROLOGY DIRECTOR documented as of this encounter Care Teams Ict Sales Representative Relationship Specialty Start Date End Date Jon Denise MD [address] [place] [phone] PCP - General Family Practice 02/20/16 documented as of this encounter
--- OUTSIDE RECORDS SUMMARY | 2025-04-07 10:30 | XMS_ITS | Encounter Summary ---
Author Organization [facility] Address [address] [place] [address] Care Team Providers Care Gunite Mixer Name Role Phone Jon Denise MD Primary Care Provider [phone] Encounter Details Date Type Department Care Team (Latest Contact Info) Description 12/15/2001 Outpatient Historical [address] [phone] Stacey Kennedy MD [address] [place] [address], [phone] Dermatitis due to plant (Primary Dx); TOBACCO USE DISORDER Social History Tobacco Use Types Packs/Day Years Used Date Smoking Tobacco: Never Assessed Sex and Gender Information Value Date Recorded Sex Assigned at Not on file Legal Sex Male 5:07 AM STUDY ABROAD COORDINATOR Gender Identity Not on file Sexual Orientation Not on file documented as of this encounter Plan of Treatment Not on file documented as of this encounter Visit Diagnoses Diagnosis Dermatitis due to plant- Primary Contact dermatitis and other eczema due to plants (except food) Tobacco use disorder documented in this encounter Additional Health Concerns Infection Onset Date Last Indicated Resolved Time R/O COVID-19 01/15/2020 01/15/2020 01/17/2020 1:00 AM CDT R/O COVID-19 05/12/2020 05/12/2020 05/14/2020 12:3 2 AM STUDY ABROAD COORDINATOR COVID-19 05/12/2020 05/12/2020 06/11/2020 8:11 PM STUDY ABROAD COORDINATOR documented as of this encounter Care Teams Gunite Mixer Relationship Specialty Start Date End Date Jon Denise MD [address] [place] [address] PCP - General Family Practice 02/20/16 documented as of this encounter
--- OUTSIDE RECORDS SUMMARY | 2025-04-07 10:30 | XMS_ITS | Encounter Summary ---
Author Organization [facility] Address [address] [place]: [place] [address] Care Team Providers Care Admiralty Lawyer Name Role Phone Jon Denise MD Primary Care Provider [phone] Encounter Details Date Type Department Care Team (Late st Contact Info) Description 11/20/2001 Outpatient Historical Non-Staff, Physician NO ADDRESS ON FILE Social History Tobacco Use Types Packs/Day Years Used Date Smoking Tobacco: Never Assessed Sex and Gender Information Value Date Recorded Sex Assigned at Not on file Legal Sex Male 5:07 AM FEED MANAGER Gender Identity Not on file Sexual Orientation Not on file documented as of this encounter Plan of Treatment Not on file documented as of this encounter Visit Diagnoses Not on filedocumented in this encounter Additional Health Concerns Infection Onset Date Last Indicated Resolved Time R/O COVID-19 01/15/2020 01/15/2020 01/17/2020 1:00 AM CDT R/O COVID-19 05/12/2020 05/12/2020 05/14/2020 12:3 2 AM FEED MANAGER COVID-19 05/12/2020 05/12/2020 06/11/2020 8:11 PM FEED MANAGER documented as of this encounter Care Teams Admiralty Lawyer Relationship Specialty Start Date End Date Jon Denise MD [address] [address] PCP - General Family Practice 02/20/16 documented as of this encounter
--- OUTSIDE RECORDS SUMMARY | 2025-04-07 10:30 | XMS_ITS | Encounter Summary ---
Author Organization [facility] Address [address] [place] [address] Care Team Providers Care Central Supply Nurse Name Role Phone Jon Denise MD Primary Care Provider [phone] Encounter Details Date Type Department Care Team (Latest Contact Info) Description 10/23/2003 Outpatient Historical [facility] [address] [phone] Stacey Kennedy MD [address], [address] ACUTE BRONCHITIS (Primary Dx) Social History Tobacco Use Types Packs/Day Years Used Date Smoking Tobacco: Never Assessed Sex and Gender Information Value Date Recorded Sex Assigned at Not on file Legal Sex Male 5:07 AM TEACHER COUNSELOR Gender Identity Not on file Sexual Orientation Not on file documented as of this encounter Plan of Treatment Not on file documented as of this encounter Visit Diagnoses Diagnosis Acute bronchitis- Primary documented in this encounter Additional Health Concerns Infection Onset Date Last Indicated Resolved Time R/O COVID-19 01/15/2020 01/15/2020 01/17/2020 1:00 AM CDT R/O COVID-19 05/12/2020 05/12/2020 05/14/2020 12:3 2 AM TEACHER COUNSELOR COVID-19 05/12/2020 05/12/2020 06/11/2020 8:11 PM TEACHER COUNSELOR documented as of this encounter Care Teams Central Supply Nurse Relationship Specialty Start Date End Date Jon Denise MD [address] [address] PCP - General Family Practice 02/20/16 documented as of this encounter
--- OUTSIDE RECORDS SUMMARY | 2025-04-07 10:30 | XMS_ITS | Encounter Summary ---
Author Organization [facility] Address [address] [place] [address] Care Team Providers Care Poultry Farm Worker Name Role Phone Jon Denise MD Primary Care Provider [phone] Encounter Details Date Type Department Care Team (Latest Contact Info) Description 10/30/2003 Outpatient Historical [facility] [place] [address] [phone] Linda Navarrete MD [address] [place] [phone] HYPERTENSION NOS (Primary Dx) Social History Tobacco Use Types Packs/Day Years Used Date Smoking Tobacco: Never Assessed Sex and Gender Information Value Date Recorded Sex Assigned at Not on file Legal Sex Male 5:07 AM VENDING MACHINE FILLER Gender Identity Not on file Sexual Orientation Not on file documented as of this encounter Plan of Treatment Not on file documented as of this encounter Visit Diagnoses Diagnosis Unspecified essential hypertension- Primary documented in this encounter Additional Health Concerns Infection Onset Date Last Indicated Resolved Time R/O COVID-19 01/15/2020 01/15/2020 01/17/2020 1:00 AM CDT R/O COVID-19 05/12/2020 05/12/2020 05/14/2020 12:3 2 AM VENDING MACHINE FILLER COVID-19 05/12/2020 05/12/2020 06/11/2020 8:11 PM VENDING MACHINE FILLER documented as of this encounter Care Teams Poultry Farm Worker Relationship Specialty Start Date End Date Jon Denise MD [address] [phone] PCP - General Family Practice 02/20/16 documented as of this encounter
--- OUTSIDE RECORDS SUMMARY | 2025-04-07 10:30 | XMS_ITS | Encounter Summary ---
Author Organization [facility] Address [address] [place] [address] Care Team Providers Care Auto Radiator Specialist Name Role Phone Jon Denise MD Primary Care Provider [phone] Encounter Details Date Type Department Care Team (Latest Contact Info) Description 11/28/2001 Outpatient Historical [facility] [address] [phone] Raheem Caro MD [address] [place] [address] [phone] CERVICALGIA (Primary Dx) Social History Tobacco Use Types Packs/Day Years Used Date Smoking Tobacco: Never Assessed Sex and Gender Information Value Date Recorded Sex Assigned at Not on file Legal Sex Male 5:07 AM MANAGER SOURCING Gender Identity Not on file Sexual Orientation Not on file documented as of this encounter Plan of Treatment Not on file documented as of this encounter Visit Diagnoses Diagnosis Cervicalgia- Primary documented in this encounter Additional Health Concerns Infection Onset Date Last Indicated Resolved Time R/O COVID-19 01/15/2020 01/15/2020 01/17/2020 1:00 AM CDT R/O COVID-19 05/12/2020 05/12/2020 05/14/2020 12:3 2 AM MANAGER SOURCING COVID-19 05/12/2020 05/12/2020 06/11/2020 8:11 PM MANAGER SOURCING documented as of this encounter Care Teams Auto Radiator Specialist Relationship Specialty Start Date End Date Jon Denise MD [address] [place] [phone] PCP - General Family Practice 02/20/16 documented as of this encounter
--- OUTSIDE RECORDS SUMMARY | 2025-04-07 10:30 | XMS_ITS | Encounter Summary ---
Author Organization [facility] Address [address] [place] [address] Care Team Providers Care Double Needle Operator Lockstitch Name Role Phone Jon Denise MD Primary Care Provider [phone] Encounter Details Date Type Department Care Team (Latest Contact Info) Description 06/10/2004 Outpatient Historical [facility] Faisal Bautista-Javi [phone] [place] [address] Bhupendra Ibarra DO [address] [place] [address] HYPERTENSION NOS (Primary Dx); TOBACCO USE DISORDER Social History Tobacco Use Types Packs/Day Years Used Date Smoking Tobacco: Never Assessed Sex and Gender Information Value Date Recorded Sex Assigned at Not on file Legal Sex Male 5:07 AM AIR TRAFFIC CONTROL MANAGER Gender Identity Not on file Sexual Orientation Not on file documented as of this encounter Plan of Treatment Not on file documented as of this encounter Visit Diagnoses Diagnosis Unspecified essential hypertension- Primary Tobacco use disorder documented in this encounter Additional Health Concerns Infection Onset Date Last Indicated Resolved Time R/O COVID-19 01/15/2020 01/15/2020 01/17/2020 1:00 AM CDT R/O COVID-19 05/12/2020 05/12/2020 05/14/2020 12:3 2 AM AIR TRAFFIC CONTROL MANAGER COVID-19 05/12/2020 05/12/2020 06/11/2020 8:11 PM AIR TRAFFIC CONTROL MANAGER documented as of this encounter Care Teams Double Needle Operator Lockstitch Relationship Specialty Start Date End Date Jon Denise MD [address] [place] [address] PCP - General Family Practice 02/20/16 documented as of this encounter
--- OUTSIDE RECORDS SUMMARY | 2025-04-07 10:30 | XMS_ITS | Encounter Summary ---
Author Organization [facility] Address [address] [place] [address] Care Team Providers Care Diploma Dental Assistant Name Role Phone Jon Denise MD Primary Care Provider [phone] Encounter Details Date Type Department Care Team (Latest Contact Info) Description 06/29/2005 Outpatient Historical [facility] [address] [phone] Raheem Caro MD [address] [place] [address] [phone] ACUTE PHARYNGITIS (Primary Dx) Social History Tobacco Use Types Packs/Day Years Used Date Smoking Tobacco: Never Assessed Sex and Gender Information Value Date Recorded Sex Assigned at Not on file Legal Sex Male 5:07 AM FILLER MIXER Gender Identity Not on file Sexual Orientation Not on file documented as of this encounter Plan of Treatment Not on file documented as of this encounter Visit Diagnoses Diagnosis Acute pharyngitis- Primary documented in this encounter Additional Health Concerns Infection Onset Date Last Indicated Resolved Time R/O COVID-19 01/15/2020 01/15/2020 01/17/2020 1:00 AM CDT R/O COVID-19 05/12/2020 05/12/2020 05/14/2020 12:3 2 AM FILLER MIXER COVID-19 05/12/2020 05/12/2020 06/11/2020 8:11 PM FILLER MIXER documented as of this encounter Care Teams Diploma Dental Assistant Relationship Specialty Start Date End Date Jon Denise MD [address] [place] [phone] PCP - General Family Practice 02/20/16 documented as of this encounter
--- OUTSIDE RECORDS SUMMARY | 2025-04-07 10:30 | XMS_ITS | Encounter Summary ---
Author Organization [facility] Address [address] [place] [address] Care Team Providers Care Phy Therapist Name Role Phone Jon Denise MD Primary Care Provider [phone] Encounter Details Date Type Department Care Team (Late st Contact Info) Description 07/17/2010 Ancillary Orders [facility]3] Orthopedics- [address] [place] [address] Noé Zamora MD NO ADDRESS ON FILE Shoulder pain Social History Tobacco Use Types Packs/Day Years Used Date Smoking Tobacco: Every Day Cigarettes Alcohol Use Standard Drinks/Week Comments Yes 0 (1 standard drink = 0.6 oz pur e alcohol) Sex and Gender Information Value Date Recorded Sex Assigned at Not on file Legal Sex Male 5:07 AM CUSTOMER OPERATIONS SPECIALIST Gender Identity Not on file Sexual Orientation Not on file documented as of this encounter Plan of Treatment Not on file documented as of this encounter Results * XR SHOULDER 2+ VW RIGHT (07/17/2010 11:01 AM CUSTOMER OPERATIONS SPECIALIST) Anatomical Region Laterality Modality Upper Extremity Computed Radiogr aphy Narrative 07/27/2010 10:37 AM CDT X-rays were obtained and reviewed today in the clinic of the shoulder. 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 This would be consistent with his previous fracture and his pathology at this point which includes significant continued pain at the AC joint. Procedure Note Noé Zamora MD - 07/27/2010 X-rays were obtained and reviewed today in the clinic of the shoulder.There appears to be what looks like osteolysis developing in and aroundthat distal clavicle. This would be consistent with his previous fractureand his pathology at this point which includes significant continued painat the AC joint. us Noé Zamora MD DIAGNOSTIC IMAGING ORDERABLES Final Result documented in this encounter Visit Diagnoses Diagnosis Shoulder pain Pain in joint, shoulder region documented in this encounter Additional Health Concerns Infection Onset Date Last Indicated Resolved Time R/O COVID-19 01/15/2020 01/15/2020 01/17/2020 1:00 AM CDT R/O COVID-19 05/12/2020 05/12/2020 05/14/2020 12:3 2 AM CUSTOMER OPERATIONS SPECIALIST COVID-19 05/12/2020 05/12/2020 06/11/2020 8:11 PM CUSTOMER OPERATIONS SPECIALIST documented as of this encounter Care Teams Phy Therapist Relationship Specialty Start Date End Date Jon Denise MD [address] [address] PCP - General Family Practice 02/20/16 documented as of this encounter
--- OUTSIDE RECORDS SUMMARY | 2025-04-07 10:30 | XMS_ITS | Encounter Summary ---
Author Organization [facility] Address [address] [place] [address] Care Team Providers Care Transfer And Pumphouse Operator Name Role Phone Jon Denise MD Primary Care Provider [phone] Encounter Details Date Type Department Care Team (Latest Contact Info) Description 11/14/2001 Outpatient Historical [facility] [address] [phone] Raheem Caro MD [address] [place] [address] [phone] CERVICALGIA (Primary Dx) Social History Tobacco Use Types Packs/Day Years Used Date Smoking Tobacco: Never Assessed Sex and Gender Information Value Date Recorded Sex Assigned at Not on file Legal Sex Male 5:07 AM FLEECE TIER Gender Identity Not on file Sexual Orientation Not on file documented as of this encounter Plan of Treatment Not on file documented as of this encounter Visit Diagnoses Diagnosis Cervicalgia- Primary documented in this encounter Additional Health Concerns Infection Onset Date Last Indicated Resolved Time R/O COVID-19 01/15/2020 01/15/2020 01/17/2020 1:00 AM CDT R/O COVID-19 05/12/2020 05/12/2020 05/14/2020 12:3 2 AM FLEECE TIER COVID-19 05/12/2020 05/12/2020 06/11/2020 8:11 PM FLEECE TIER documented as of this encounter Care Teams Transfer And Pumphouse Operator Relationship Specialty Start Date End Date Jon Denise MD [address] [place] [address] [phone] PCP - General Family Practice 02/20/16 documented as of this encounter
--- OUTSIDE RECORDS SUMMARY | 2025-04-07 10:30 | XMS_ITS | Encounter Summary ---
Author Organization [facility] Address [address] [place] [address] Care Team Providers Care Construction Worker Name Role Phone Jon Denise MD Primary Care Provider [phone] Encounter Details Date Type Department Care Team (Latest Contact Info) Description 10/02/2003 Outpatient Historical [address] [phone] Stacey Kennedy MD [address], [phone] HYPOPOTASSEMIA (Primary Dx); HYPERTENSION NOS; AFTERCARE HOTEL MAID USE MEDICATN Social History Tobacco Use Types Packs/Day Years Used Date Smoking Tobacco: Never Assessed Sex and Gender Information Value Date Recorded Sex Assigned at Not on file Legal Sex Male 5:07 AM SALES SUPPORT REP Gender Identity Not on file Sexual Orientation Not on file documented as of this encounter Plan of Treatment Not on file documented as of this encounter Visit Diagnoses Diagnosis Hypopotassemia- Primary Unspecified essential hypertension Encounter for long-term (current) use of other medications documented in this encounter Additional Health Concerns Infection Onset Date Last Indicated Resolved Time R/O COVID-19 01/15/2020 01/15/2020 01/17/2020 1:00 AM CDT R/O COVID-19 05/12/2020 05/12/2020 05/14/2020 12:3 2 AM SALES SUPPORT REP COVID-19 05/12/2020 05/12/2020 06/11/2020 8:11 PM SALES SUPPORT REP documented as of this encounter Care Teams Construction Worker Relationship Specialty Start Date End Date Jon Denise MD [address] [place] [phone] PCP - General Family Practice 02/20/16 documented as of this encounter
--- OUTSIDE RECORDS SUMMARY | 2025-04-07 10:30 | XMS_ITS | Encounter Summary ---
Author Organization [facility] Address [address] [place] [address] Care Team Providers Care Control Systems Designer Name Role Phone Jon Denise MD Primary Care Provider [phone] Encounter Details Date Type Department Care Team (Latest Contact Info) Description 10/14/2003 Outpatient Historical [facility] [address] [phone] Stacey Kennedy MD [address], [address] HYPOPOTASSEMIA (Primary Dx) Social History Tobacco Use Types Packs/Day Years Used Date Smoking Tobacco: Never Assessed Sex and Gender Information Value Date Recorded Sex Assigned at Not on file Legal Sex Male 5:07 AM SHOULDER BONER Gender Identity Not on file Sexual Orientation Not on file documented as of this encounter Plan of Treatment Not on file documented as of this encounter Visit Diagnoses Diagnosis Hypopotassemia- Primary documented in this encounter Additional Health Concerns Infection Onset Date Last Indicated Resolved Time R/O COVID-19 01/15/2020 01/15/2020 01/17/2020 1:00 AM CDT R/O COVID-19 05/12/2020 05/12/2020 05/14/2020 12:3 2 AM SHOULDER BONER COVID-19 05/12/2020 05/12/2020 06/11/2020 8:11 PM SHOULDER BONER documented as of this encounter Care Teams Control Systems Designer Relationship Specialty Start Date End Date Jon Denise MD [address] [phone] PCP - General Family Practice 02/20/16 documented as of this encounter
--- OUTSIDE RECORDS SUMMARY | 2025-04-07 10:30 | XMS_ITS | Encounter Summary ---
Author Organization [facility] Address [address] [place] [address] Care Team Providers Care Barback Name Role Phone Jon Denise MD Primary Care Provider [phone] Encounter Details Date Type Department Care Team (Latest Contact Info) Description 09/25/2003 Outpatient Historical [address] [phone] Stacey Kennedy MD [address], [address] HYPERTENSION NOS (Primary Dx); GENERALIZED ANXIETY DIS; AFTERCARE RETIREMENT USE MEDICATN Social History Tobacco Use Types Packs/Day Years Used Date Smoking Tobacco: Never Assessed Sex and Gender Information Value Date Recorded Sex Assigned at Not on file Legal Sex Male 5:07 AM STEEL RIGGER Gender Identity Not on file Sexual Orientation Not on file documented as of this encounter Plan of Treatment Not on file documented as of this encounter Visit Diagnoses Diagnosis Unspecified essential hypertension- Primary Generalized anxiety disorder Encounter for long-term (current) use of other medications documented in this encounter Additional Health Concerns Infection Onset Date Last Indicated Resolved Time R/O COVID-19 01/15/2020 01/15/2020 01/17/2020 1:00 AM CDT R/O COVID-19 05/12/2020 05/12/2020 05/14/2020 12:3 2 AM STEEL RIGGER COVID-19 05/12/2020 05/12/2020 06/11/2020 8:11 PM STEEL RIGGER documented as of this encounter Care Teams Barback Relationship Specialty Start Date End Date Jon Denise MD [address] [place] [phone] PCP - General Family Practice 02/20/16 documented as of this encounter
--- OUTSIDE RECORDS SUMMARY | 2025-04-07 10:30 | XMS_ITS | Encounter Summary ---
Author Organization [facility] Address [address] [place] [address] Care Team Providers Care Direct Support Professional Home Health Name Role Phone Jon Denise MD Primary Care Provider Encounter Details Date Type Department Care Team (Latest Contact Info) Description 06/15/2002 Outpatient Historical [facility] [address] [place] [address] Lonny Gardner MD NO ADDRESS ON FILE CERVICALGIA (Primary Dx) Social History Tobacco Use Types Packs/Day Years Used Date Smoking Tobacco: Never Assessed Sex and Gender Information Value Date Recorded Sex Assigned at Not on file Legal Sex Male 5:07 AM ADVANCED PRACTICE NURSE Gender Identity Not on file Sexual Orientation Not on file documented as of this encounter Plan of Treatment Not on file documented as of this encounter Visit Diagnoses Diagnosis Cervicalgia- Primary documented in this encounter Additional Health Concerns Infection Onset Date Last Indicated Resolved Time R/O COVID-19 01/15/2020 01/15/2020 01/17/2020 1:00 AM CDT R/O COVID-19 05/12/2020 05/12/2020 05/14/2020 12:3 2 AM ADVANCED PRACTICE NURSE COVID-19 05/12/2020 05/12/2020 06/11/2020 8:11 PM ADVANCED PRACTICE NURSE documented as of this encounter Care Teams Direct Support Professional Home Health Relationship Specialty Start Date End Date Jon Denise MD [address] [place] [phone] PCP - General Family Practice 02/20/16 documented as of this encounter
--- OUTSIDE RECORDS SUMMARY | 2025-04-07 10:30 | XMS_ITS | Encounter Summary ---
Author Organization [facility] Address [address] [place] [address] Care Team Providers Care Setter Helper Name Role Phone Jon Denise MD Primary Care Provider [phone] Encounter Details Date Type Department Care Team (Latest Contact Info) Description 02/28/2003 Outpatient Historical [facility] [address] [phone] Stacey Kennedy MD [address], [address] HYPERTENSION NOS (Primary Dx); CERVICALGIA Social History Tobacco Use Types Packs/Day Years Used Date Smoking Tobacco: Never Assessed Sex and Gender Information Value Date Recorded Sex Assigned at Not on file Legal Sex Male 5:07 AM MATERIAL WORKER Gender Identity Not on file Sexual Orientation Not on file documented as of this encounter Plan of Treatment Not on file documented as of this encounter Visit Diagnoses Diagnosis Unspecified essential hypertension- Primary Cervicalgia documented in this encounter Additional Health Concerns Infection Onset Date Last Indicated Resolved Time R/O COVID-19 01/15/2020 01/15/2020 01/17/2020 1:00 AM CDT R/O COVID-19 05/12/2020 05/12/2020 05/14/2020 12:3 2 AM MATERIAL WORKER COVID-19 05/12/2020 05/12/2020 06/11/2020 8:11 PM MATERIAL WORKER documented as of this encounter Care Teams Setter Helper Relationship Specialty Start Date End Date Jon Denise MD [address] [phone] PCP - General Family Practice 02/20/16 documented as of this encounter
--- OUTSIDE RECORDS SUMMARY | 2025-04-07 10:30 | XMS_ITS | Encounter Summary ---
Author Organization [facility] Address [address] [place] [address] Care Team Providers Care Computer Systems Architect Name Role Phone Jon Denise MD Primary Care Provider [phone] Encounter Details Date Type Department Care Team (Latest Contact Info) Description 11/07/[address] [facility] [address] [place] [phone] Linda Navarrete MD [address] [place] [phone] GENERALIZED ANXIETY DIS (Primary Dx); HYPERTENSION NOS Social History Tobacco Use Types Packs/Day Years Used Date Smoking Tobacco: Never Assessed Sex and Gender Information Value Date Recorded Sex Assigned at Not on file Legal Sex Male 5:07 AM APPRENTICE COOK Gender Identity Not on file Sexual Orientation Not on file documented as of this encounter Plan of Treatment Not on file documented as of this encounter Visit Diagnoses Diagnosis Generalized anxiety disorder- Primary Unspecified essential hypertension documented in this encounter Additional Health Concerns Infection Onset Date Last Indicated Resolved Time R/O COVID-19 01/15/2020 01/15/2020 01/17/2020 1:00 AM CDT R/O COVID-19 05/12/2020 05/12/2020 05/14/2020 12:3 2 AM APPRENTICE COOK COVID-19 05/12/2020 05/12/2020 06/11/2020 8:11 PM APPRENTICE COOK documented as of this encounter Care Teams Computer Systems Architect Relationship Specialty Start Date End Date Jon Denise MD [address] [address] PCP - General Family Practice 02/20/16 documented as of this encounter
--- OUTSIDE RECORDS SUMMARY | 2025-04-07 10:30 | XMS_ITS | Encounter Summary ---
Author Organization [facility] Address [address] [place] [address] Care Team Providers Care Copy Preparer Name Role Phone Jon Denise MD Primary Care Provider [phone] Encounter Details Date Type Department Care Team (Latest Contact Info) Description 03/22/2007 Outpatient Historical [facility] [address] [phone] Moriah Mercer, [facility] [address] [place] [phone] Cough (Primary Dx); Unspecified Chest Pain Social History Tobacco Use Types Packs/Day Years Used Date Smoking Tobacco: Never Assessed Sex and Gender Information Value Date Recorded Sex Assigned at Not on file Legal Sex Male 5:07 AM BEAN SNAPPER Gender Identity Not on file Sexual Orientation Not on file documented as of this encounter Plan of Treatment Not on file documented as of this encounter Visit Diagnoses Diagnosis Cough- Primary Chest pain, unspecified documented in this encounter Additional Health Concerns Infection Onset Date Last Indicated Resolved Time R/O COVID-19 01/15/2020 01/15/2020 01/17/2020 1:00 AM CDT R/O COVID-19 05/12/2020 05/12/2020 05/14/2020 12:3 2 AM BEAN SNAPPER COVID-19 05/12/2020 05/12/2020 06/11/2020 8:11 PM BEAN SNAPPER documented as of this encounter Care Teams Copy Preparer Relationship Specialty Start Date End Date Jon Denise MD [address] [place] [phone] PCP - General Family Practice 02/20/16 documented as of this encounter
--- OUTSIDE RECORDS SUMMARY | 2025-04-07 10:30 | XMS_ITS | Encounter Summary ---
Author Organization [facility] Address [address] [place] [address] Care Team Providers Care Dictaphone Transcriber Name Role Phone Jon Denise MD Primary Care Provider [phone] Encounter Details Date Type Department Care Team (Late st Contact Info) Description 03/15/2003 Outpatient Historical [facility] [place] [address] [facility] [place] [address] Stacey Kennedy MD [address], [address] Social History Tobacco Use Types Packs/Day Years Used Date Smoking Tobacco: Never Assessed Sex and Gender Information Value Date Recorded Sex Assigned at Not on file Legal Sex Male 5:07 AM CASH MANAGEMENT CLERK Gender Identity Not on file Sexual Orientation Not on file documented as of this encounter Plan of Treatment Not on file documented as of this encounter Visit Diagnoses Not on filedocumented in this encounter Additional Health Concerns Infection Onset Date Last Indicated Resolved Time R/O COVID-19 01/15/2020 01/15/2020 01/17/2020 1:00 AM CDT R/O COVID-19 05/12/2020 05/12/2020 05/14/2020 12:3 2 AM CASH MANAGEMENT CLERK COVID-19 05/12/2020 05/12/2020 06/11/2020 8:11 PM CASH MANAGEMENT CLERK documented as of this encounter Care Teams Dictaphone Transcriber Relationship Specialty Start Date End Date Jon Denise MD [address] [place] [phone] PCP - General Family Practice 02/20/16 documented as of this encounter
--- OUTSIDE RECORDS SUMMARY | 2025-04-07 10:30 | XMS_ITS | Encounter Summary ---
Author Organization [facility] Address [address] [place] [address] Care Team Providers Care Farm Management Teacher Name Role Phone Jon Denise MD Primary Care Provider [phone] Encounter Details Date Type Department Care Team (Latest Contact Info) Description 10/21/2006 Outpatient Historical [facility] [address] [phone] Moriah Mercer, [facility] [address] [address] Contact Dermatitis and Other Eczema, due to Unspecified Cause (Primary Dx) Social History Tobacco Use Types Packs/Day Years Used Date Smoking Tobacco: Never Assessed Sex and Gender Information Value Date Recorded Sex Assigned at Not on file Legal Sex Male 5:07 AM BLENDER CONVEYOR OPERATOR Gender Identity Not on file Sexual Orientation Not on file documented as of this encounter Plan of Treatment Not on file documented as of this encounter Visit Diagnoses Diagnosis Contact dermatitis and other eczema, due to unspecified cause- Primary documented in this encounter Additional Health Concerns Infection Onset Date Last Indicated Resolved Time R/O COVID-19 01/15/2020 01/15/2020 01/17/2020 1:00 AM CDT R/O COVID-19 05/12/2020 05/12/2020 05/14/2020 12:3 2 AM BLENDER CONVEYOR OPERATOR COVID-19 05/12/2020 05/12/2020 06/11/2020 8:11 PM BLENDER CONVEYOR OPERATOR documented as of this encounter Care Teams Farm Management Teacher Relationship Specialty Start Date End Date Jon Denise MD [address] [place] [address] PCP - General Family Practice 02/20/16 documented as of this encounter
--- OUTSIDE RECORDS SUMMARY | 2025-04-07 10:30 | XMS_ITS | Encounter Summary ---
Author Organization [facility] Address [address] [place] [address] Care Team Providers Care White Washer Name Role Phone Jon Denise MD Primary Care Provider Encounter Details Date Type Department Care Team (Latest Contact Info) Description 05/31/[address] [facility] [address] [place] [address] Lonny Gardner MD NO ADDRESS ON FILE CERVICALGIA (Primary Dx) Social History Tobacco Use Types Packs/Day Years Used Date Smoking Tobacco: Never Assessed Sex and Gender Information Value Date Recorded Sex Assigned at Not on file Legal Sex Male 5:07 AM GROUNDSMAN Gender Identity Not on file Sexual Orientation Not on file documented as of this encounter Plan of Treatment Not on file documented as of this encounter Visit Diagnoses Diagnosis Cervicalgia- Primary documented in this encounter Additional Health Concerns Infection Onset Date Last Indicated Resolved Time R/O COVID-19 01/15/2020 01/15/2020 01/17/2020 1:00 AM CDT R/O COVID-19 05/12/2020 05/12/2020 05/14/2020 12:3 2 AM GROUNDSMAN COVID-19 05/12/2020 05/12/2020 06/11/2020 8:11 PM GROUNDSMAN documented as of this encounter Care Teams White Washer Relationship Specialty Start Date End Date Jon Denise MD [address] [place] [address] PCP - General Family Practice 02/20/16 documented as of this encounter
--- OUTSIDE RECORDS SUMMARY | 2025-04-07 10:30 | XMS_ITS | Encounter Summary ---
Author Organization [facility] Address [address] [place] [address] Care Team Providers Care Analog Design Engineer Name Role Phone Jon Denise MD Primary Care Provider [phone] Encounter Details Date Type Department Care Team (Latest Contact Info) Description 10/31/2003 Outpatient Historical [facility] [address] [place] [address] Linda Navarrete MD [address] [place] [id number] HYPERTENSION NOS (Primary Dx) Social History Tobacco Use Types Packs/Day Years Used Date Smoking Tobacco: Never Assessed Sex and Gender Information Value Date Recorded Sex Assigned at Not on file Legal Sex Male 5:07 AM SANDWICH BOARD CARRIER Gender Identity Not on file Sexual Orientation Not on file documented as of this encounter Plan of Treatment Not on file documented as of this encounter Visit Diagnoses Diagnosis Unspecified essential hypertension- Primary documented in this encounter Additional Health Concerns Infection Onset Date Last Indicated Resolved Time R/O COVID-19 01/15/2020 01/15/2020 01/17/2020 1:00 AM CDT R/O COVID-19 05/12/2020 05/12/2020 05/14/2020 12:3 2 AM SANDWICH BOARD CARRIER COVID-19 05/12/2020 05/12/2020 06/11/2020 8:11 PM SANDWICH BOARD CARRIER documented as of this encounter Care Teams Analog Design Engineer Relationship Specialty Start Date End Date Jon Denise MD [address] [address] PCP - General Family Practice 02/20/16 documented as of this encounter
[2025-04-07 10:31] VITALS: BP 189/102; PULSE 112; RESP 18; TEMP 36.7; O2SAT 98; BMI 24.3
--- NOTE | 2025-04-07 10:37 | W.ED.ALCOHOL ---
HPI - Alcohol General: Chief Complaint: Alcohol Stated Complaint: mhe Time Seen by Provider: 04/07/25 10:27 Source: patient Mode of arrival: ambulatory Limitations: no limitations History of Present Illness: 59-year-old male has a history of alcohol abuse. States he has drank daily for years. Patient is here stating he wants to try to get rehab. His last drink was yesterday he denies any SI HI denies any worse improved factors. Has a mild tremor at this time but states he also drank a red bull this morning Related Data Home Medications ?Medication ?Instructions ?Recorded ?Confirmed allopurinol 100 mg tablet 100 mg PO DAILY PRN gout 09/30/20 12/14/24 Previous Rx's ?Medication ?Instructions ?Recorded folic acid 1 mg tablet 1 mg PO DAILY #90 tabs 10/02/20 lisinopril 10 mg tablet 10 mg PO DAILY #30 tabs 10/02/20 multivitamin with folic acid 400 1 tab PO DAILY #90 tabs 10/02/20 mcg tablet (Thera) thiamine mononitrate (vit B1) 100 100 mg PO DAILY #90 tabs 10/02/20 mg tablet (Vitamin B-1 (mononitrate)) chlordiazepoxide HCl 10 mg capsule 10 mg PO Q6H PRN alcoh #20 caps 04/07/25 Allergies Allergy/AdvReac Type Severity Reaction Status Date / Time Penicillins Allergy ALGY-Rash Verified 12/14/24 13:58 [facility] ED PFS: Medical History (Updated 04/07/25 @ 10:38 by Callie Pineda MD) Abnormal brain MRI Abnormal CT of brain No pertinent past medical history Depression Surgical History No pertinent past surgical history Family History Other CAD (coronary artery disease) Social History Smoking and tobacco/nicotine status: current every day tobacco/nicotine user cigarettes [ Other cigarette details: 1 pack/day for 30 years] Alcohol intake: current Substance/Drug Use: never Household members: family Housing: House Physical Exam Const: COMMON NORMALS: no acute distress, patient oriented x3 and healthy appearing HENMT: COMMON NORMALS: normocephalic and atraumatic HEAD & SCALP: normocephalic and atraumatic Neck/C-Spine: COMMON NORMALS: full ROM and supple Chest: COMMONS NORMALS: normal inspection of the chest Resp: COMMON NORMALS: normal respiratory effort Cardio: RATE: tachycardic Extremity: COMMON NORMALS: normal to inspection and full ROM Neuro: COMMON NORMALS: patient oriented x3, moves all extremities and no focal motor deficits Psych: COMMON NORMALS: mental status grossly normal, Normal thought process present and cooperative THOUGHT PROCESS: Normal thought process present Skin: COMMON NORMALS: no rashes or lesions noted and no wounds GENERAL SKIN EXAM: no rashes or lesions noted Course Vital Signs: Vital signs: Vital Signs Temperature 98.1 F 04/07/25 10:31 Pulse Rate 112 H 04/07/25 10:31 Respiratory Rate 18 04/07/25 10:31 Blood Pressure 189/102 04/07/25 10:31 Pulse Oximetry 98 04/07/25 10:31 Oxygen Delivery Me thod Room Air 04/07/25 10:31 MDM - Alcohol Medical Decision Making Patient presents for history of alcohol abuse he has no signs of acute withdrawals here. Did give him a Valium here. We do not do alcohol detox here did give him information for [place] [facility] which [place] an [place] detox center. Will prescribe him chlordiazepoxide for his withdrawal symptoms I did inform him if he does drink to not take the medicine he understands agrees to plan he is to return if worsening Medical Records I reviewed the patient's medical records. No radiology studies performed this visit Discharge Plan Discharge Patient Disposition: Home Clinical Impression: Alcoholism, chronic Condition: Stable Prescriptions: New chlordiazepoxide HCl 10 mg capsule 10 mg PO Q6H PRN (Reason: alcoh) Qty: 20 0RF No Action allopurinol 100 mg tablet 100 mg PO DAILY PRN (Reason: gout) lisinopril 10 mg Tablet 10 mg PO DAILY Qty: 30 0RF folic acid 1 mg Tablet 1 mg PO DAILY Qty: 90 0RF thiamine mononitrate (vit B1) [Vitamin B-1 (mononitrate)] 100 mg Tablet 100 mg PO DAILY Qty: 90 0RF multivitamin with folic acid [Thera] 400 mcg Tablet 1 tab PO DAILY Qty: 90 0RF Discharge Orders: Discharge ED (Routine); Ordered 04/07/25 Ordered By: Callie Pineda Referrals: Demetrius Denise DO [Primary Care Provider] - 4-7 days Discharge Diet: Advance as tolerated Discharge Activity: Resume usual activity Patient Instructions: Abuse of Alcohol (ED) Print Language: Nepali Coding Level of Care Code ED Manager Membership for Ina Calle
[2025-04-07 10:51] VITALS: BP 168/104; PULSE 107; O2SAT 97
== END 2025-04-07 10:52 | disposition home or self-care (01) ==
PROVIDERS: Emergency Provider Emergency Medicine; PCP Family Medicine
DX: F10.20 Alcohol dependence, uncomplicated (principal); F17.210 Nicotine dependence, cigarettes, uncomplicated
CPT/HCPCS: 99283; J9999